=== PATIENT | male | born 1945 | race Caucasian/White ===

== ENCOUNTER 2018-01-30 07:29 | Day surgery (SDC) | payer MEDICARE ==
[2018-01-28 13:48] VITALS: BMI 25.1
[~2018-01-30 07:29] MED LIST: LACTATED RINGERS 1,000 ML IV SCH; LIDOCAINE 1% 20 ML VIAL (10MG/ML) FOR IV START INTRADERMA PRN
[2018-01-30 07:54] VITALS: RESP 18; TEMP 98.6
[2018-01-30 08:13] LABS: Glucose,Whole Blood 187 mg/dL (75-99)
[2018-01-30] MEDS ORDERED: PROPOFOL 10 MG/ML 20 ML VIAL IV ONE (08:14)
--- NOTE | 2018-01-30 08:31 | P.PCN ---
Date of Procedure: 01/30/18 Procedure(s) Performed: BRIEF HISTORY: Patient is a 72-year-old, pleasant, white male, scheduled for an upper endoscopy as a part of evaluation of severe epigastric pain for the last 2 weeks' duration. Pain is mostly in epigastric area, very intense associated with some nausea vomiting. He has long standing history of GERD and has been on Zantac 150 milligrams twice daily. Because of the severe pain he scheduled for an upper endoscopy to evaluate further. He has been taking Mobic on a regular basis for arthritis.. PROCEDURE PERFORMED: Esophagogastroduodenoscopy with biopsy PREOPERATIVE DIAGNOSIS: epigastric pain of 2 weeks duration IV sedation per anesthesia. PROCEDURE: After informed consent was obtained, the patient was brought into the endoscopy unit. IV sedation was administered by Anesthesia under continuous monitoring. Initially the Olympus GIF-140 video endoscope was inserted into the mouth. Esophagus intubated without any difficulty. It was gradually advanced into the stomach and duodenum and carefully examined. In the bulb of the duodenum there was a 2-3 cm deep ulcer along the duodenal sweep with early duodenal stricture. The second part of the duodenum appeared normal. The scope at this time was withdrawn to the stomach, adequately insufflated with air, and upon careful examination, mucosa of the antrum, had mild gastritis and biopsies were done from this area. The body, cardia and the fundus appeared normal. The scope was then withdrawn into the esophagus. Small hiatal hernia noted. The GE junction was located at 36 cm from the incisors. In the distal esophagus revealed linear erosions consistent with LA grade B/C esophagitis. Also there was a 2 cm deep ulceration in the distal esophagus extending to the GE junction was slightly raised irregular margins and this was also biopsied. There was a short segment of Obrien's esophagus identified and biopsies were done from this area also. The rest of the esophagus appeared normal and the patient tolerated the procedure well. IMPRESSION: 1. 2-3 cm deep duodenal bulbar ulcer along the duodenal sweep with early duodenal stricture 2. Moderate size hiatal hernia 3. Distal esophageal ulceration with raised margins, measuring 2 cm in involving the GE junction status post multiple biopsies 4. Small hiatal hernia and short segment Obrien's esophagus. 5. Linear erosions in the distal esophagus consistent with LA grade B/C reflux esophagitis. RECOMMENDATIONS: The findings of this examination were discussed with the patient as well as his family. He was advised to stop Zantac and start Prilosec 20 mg twice daily. He will follow with the biopsy results and he'll be seen in the office in one to 2 weeks.
[2018-01-30 08:53] VITALS: BP 142/88; PULSE 83
== END 2018-01-30 09:39 | disposition home or self-care (01) ==
LOC: ORWHC2ENDO 07:29
PROVIDERS: ATTEND Internal Medicine Gastroenterology
DX: K22.70 Barrett's esophagus without dysplasia (principal); K26.9 Duodenal ulcer, unspecified as acute or chronic, without hemorrhage or perforation; K31.5 Obstruction of duodenum; K21.9 Gastro-esophageal reflux disease without esophagitis; K29.50 Unspecified chronic gastritis without bleeding; K44.9 Diaphragmatic hernia without obstruction or gangrene; I10 Essential (primary) hypertension; E11.9 Type 2 diabetes mellitus without complications; Z79.84 Long term (current) use of oral hypoglycemic drugs; M19.90 Unspecified osteoarthritis, unspecified site; Z79.890 Hormone replacement therapy; Z79.1 Long term (current) use of non-steroidal anti-inflammatories (NSAID); Z79.899 Other long term (current) drug therapy; Z88.0 Allergy status to penicillin
CPT/HCPCS: 88305; 88312; 88313; 43239; J2704

== ENCOUNTER 2022-03-08 06:11 | Day surgery (SDC) | payer MEDICARE ==
[2022-03-07 10:36] VITALS: BMI 25.7
[~2022-03-08 06:11] MED LIST changes: -LACTATED RINGERS 1,000 ML IV SCH; -LIDOCAINE 1% 20 ML VIAL (10MG/ML) FOR IV START INTRADERMA PRN; +MOXIFLOXACIN HCL 0.5% DROPS 3 ML BTL OP PRN; +TETRACAINE 0.5% OPHTH (PF) DROPS 4 ML BTL OP PRN; +TIMOLOL 0.5% OPHTH DROPS 5 ML BTL OP PRN
[2022-03-08] MEDS ORDERED: DEXAMETHASONE SOD PHOSPHATE 4 MG/ML 1 ML VIAL IV ONE (06:28)
[2022-03-08] MEDS ORDERED: LIDOCAINE 1% (10MG/ML) FOR IV START INTRADERMA PRN (06:28)
[2022-03-08] MEDS ORDERED: LACTATED RINGERS 1,000 ML IV SCH (06:28)
[2022-03-08] MEDS ORDERED: ONDANSETRON 4 MG/2 ML VIAL IVP ONE (06:28)
[2022-03-08] MEDS: CYCLOPENTOLATE 1% OPHTH SOLN 2 ML BTL OP PRN ×3 (06:40→06:54)
[2022-03-08] MEDS: PHENYLEPHRINE 2.5% OPHTH DRP 2ML OP PRN ×3 (06:43→06:57)
[2022-03-08 06:47] VITALS: TEMP 97.3
[2022-03-08 07:04] LABS: Glucose,Whole Blood 129 mg/dL (75-99)
[2022-03-08] MEDS ORDERED: fentaNYL (PF) 50 MCG/ML 2 ML AMP ONE (07:26)
[2022-03-08] MEDS ORDERED: MIDAZOLAM 2 MG/2 ML VIAL ONE (07:26)
[2022-03-08] MEDS ORDERED: EPINEPHrine (PF) 0.3 ML in BALANCED SALT IRRIG SOLN COMB2 500 ML IRRIGATION ONE (07:44)
[2022-03-08] MEDS ORDERED: BALANCED SALT IRRIG SOLN COMB2 15 ML IRRIG.SOLN INTRAOCULA ONE (07:45)
[2022-03-08] MEDS ORDERED: DUOVISC KIT (GREEN BOX) INTRAOCULA ONE (07:46)
[2022-03-08] MEDS ORDERED: LIDOCAINE 1% (PF) 10MG/ML VIAL MISCELLANE ONE (07:46)
--- NOTE | 2022-03-08 08:02 | P.OP ---
Date of Procedure: 03/08/22 Preoperative Diagnosis: NS 7 CS & POAG moderate Postoperative Diagnosis: same Procedure(s) Performed: PIOL & goniotomy OD Implants: [id number] Anesthesia: MAC Surgeon: Branden Cordova Pathology: none sent Condition: stable Disposition: same day Indications for Procedure: blurry vision and glaucoma control Operative Findings: no complications
[2022-03-08 08:07] VITALS: RESP 14
[2022-03-08 08:27] VITALS: BP 166/88; PULSE 75
--- NOTE | 2022-03-09 09:05 | OP ---
OPERATIVE REPORT DATE OF SURGERY: 03/08/2022 PROCEDURE: Phacoemulsification of cataract and intraocular lens implant of the right eye with goniotomy of the right eye PREOPERATIVE DIAGNOSES: 1. Nuclear sclerosis. 2. Cortical sclerosis. 3. Primary open-angle glaucoma, moderate stage. SURGEON: Dr. Percy Cordova. ANESTHESIA: Topical. ESTIMATED BLOOD LOSS: Less than 5 mL. SPECIMEN TAKEN: None. NARRATIVE: After obtaining the appropriate consent, the patient was brought to the operating room. There he was placed under cardiac monitoring, prepped and draped in the usual sterile manner. He was approached from his right temporal side, and at the 11 o'clock position an MVR blade was used to create a paracentesis port. Through this opening 1% Xylocaine MPF 50:50 mix of balanced salt solution was injected into the anterior chamber. This was followed by stabilization of the anterior chamber with Viscoat. At the 9 o'clock position, a 2.5 mm keratome was used to create a self-sealing corneal flap incision. The patient was at this point asked to rotate his head approximately 45 degrees to his left and maintain a gaze in that general direction. A gonioprism was placed on the patient's eye and the trabecular meshwork on the nasal side of the patient's eye was identified. Using a Array Stormk dual-blade goniotomy knife, a veda-and- meet method was used to remove approximately 5 clock-hours of trabecular meshwork on the patient's nasal side of his eye. He was then asked to rotate his head back to the normal supine position, and again through the temporal incision a cystotome was introduced to begin a continuous tear capsulorrhexis which was then completed using the Utrata forceps. Hydrodissection and hydrodelineation of the lens was accomplished with balanced salt solution. Phacoemulsification of the lens utilizing phaco chop was accomplished in 27.65 seconds at 17% power. Additional Xylocaine MPF was instilled into the anterior chamber. This was followed by removal of the remaining cortical material under irrigation and aspiration as well as careful polishing of the posterior capsule in capsule vacuum mode. Provisc was then used to stabilize the capsular bag, and a Bausch and Lomb MX 60E 21.0 diopter posterior chamber intraocular lens was inserted into the capsular bag without difficulty. The remaining viscoelastic was then removed under irrigation and aspiration from in and around the intraocular lens as well as the anterior chamber. The eye was then brought to slightly above normal intraocular pressure with balanced salt solution and the eye was then dressed with two drops of 0.5% timolol followed by two drops of 0.5% moxifloxacin. He was then lightly patched and shielded in the usual manner. There were no complications from the procedure. He tolerated the procedure well and was returned to Outpatient Recovery in good condition. MMERIC / CHERIN: [id number] /
== END 2022-03-08 09:09 | disposition home or self-care (01) ==
LOC: OR 06:11
PROVIDERS: ATTEND Ophthalmology
DX: E11.36 Type 2 diabetes mellitus with diabetic cataract (principal); H25.13 Age-related nuclear cataract, bilateral; H40.1132 Primary open-angle glaucoma, bilateral, moderate stage; H35.3131 Nonexudative age-related macular degeneration, bilateral, early dry stage; K21.9 Gastro-esophageal reflux disease without esophagitis; E03.9 Hypothyroidism, unspecified; F17.200 Nicotine dependence, unspecified, uncomplicated; Z79.84 Long term (current) use of oral hypoglycemic drugs; Z79.890 Hormone replacement therapy; Z79.899 Other long term (current) drug therapy; Z88.0 Allergy status to penicillin
CPT/HCPCS: 66984; 65820; C1780; J2250; J0171; J3010; J2001

== ENCOUNTER 2022-05-10 07:21 | Day surgery (SDC) | payer MEDICARE ==
[2022-05-08 09:36] VITALS: BMI 25.1
[~2022-05-10 07:21] MED LIST changes: +LACTATED RINGERS 1,000 ML IV SCH
[2022-05-10 07:50] VITALS: TEMP 97.5
[2022-05-10] MEDS: CYCLOPENTOLATE 1% OPHTH SOLN 2 ML BTL OP PRN ×3 (07:54→08:06)
[2022-05-10] MEDS: PHENYLEPHRINE 2.5% OPHTH DRP 2ML OP PRN ×3 (07:57→08:11)
[2022-05-10 08:08] LABS: Glucose,Whole Blood 132 mg/dL (70-110)
[2022-05-10] MEDS ORDERED: LIDOCAINE 1% (10MG/ML) FOR IV START INTRADERMA ONE (08:13)
[2022-05-10] MEDS ORDERED: BALANCED SALT IRRIG SOLN COMB2 15 ML IRRIG.SOLN INTRAOCULA ONE ×2 (08:26→08:55)
[2022-05-10] MEDS ORDERED: DUOVISC KIT (GREEN BOX) INTRAOCULA ONE ×2 (08:26→08:55)
[2022-05-10] MEDS ORDERED: LIDOCAINE 1% (PF) 10MG/ML VIAL MISCELLANE ONE ×2 (08:27→08:55)
[2022-05-10] MEDS ORDERED: TIMOLOL 0.5% OPHTH SOLN (PF) 0.2 ML DROPERETTE LEFT EYE ONE ×2 (08:27→08:55)
[2022-05-10] MEDS ORDERED: MOXIFLOXACIN HCL 0.5% DROPS 3 ML BTL LEFT EYE ONE ×2 (08:27→08:55)
[2022-05-10] MEDS ORDERED: EPINEPHrine (PF) 0.3 ML in BALANCED SALT IRRIG SOLN COMB2 500 ML IRRIGATION ONE ×2 (08:28→08:47)
[2022-05-10] MEDS ORDERED: MIDAZOLAM 2 MG/2 ML VIAL ONE (08:41)
[2022-05-10] MEDS ORDERED: fentaNYL (PF) 50 MCG/ML 2 ML AMP ONE (08:41)
[2022-05-10] MEDS ORDERED: LACTATED RINGERS 1,000 ML IV ONE (08:45)
--- NOTE | 2022-05-10 09:14 | P.OP ---
Date of Procedure: 05/10/22 Preoperative Diagnosis: NS & CS & POAG moderate Postoperative Diagnosis: same Procedure(s) Performed: PIOL & goniotomy OS Implants: [id number] Anesthesia: MAC Surgeon: Branden Cordova Pathology: none sent Condition: stable Disposition: same day Indications for Procedure: blurry vision and glaucoma control Operative Findings: no complications
[2022-05-10 09:21] VITALS: RESP 18
[2022-05-10 09:47] VITALS: BP 156/95; PULSE 64
--- NOTE | 2022-05-10 23:24 | OP ---
OPERATIVE REPORT PROCEDURE PERFORMED: Phacoemulsification of cataract and intraocular lens implant of the left eye with goniotomy. PREOPERATIVE DIAGNOSES: Nuclear sclerosis, cortical sclerosis, and moderate primary open-angle glaucoma of the left eye. POSTOPERATIVE DIAGNOSES: Nuclear sclerosis, cortical sclerosis, and moderate primary open-angle glaucoma of the left eye. ANESTHESIA: Topical. ESTIMATED BLOOD LOSS: Less than 5 mL. SPECIMEN TAKEN: None. NARRATIVE: After obtaining the appropriate consent, the patient was brought to the operating room, where he was placed under cardiac monitoring, prepped and draped in the usual sterile manner. He was approached from his left temporal side and at the 5 o'clock position, an MVR blade was used to create a paracentesis port. Through this opening, 1% Xylocaine MPF 50:50 mix with balanced salt solution was injected into the anterior chamber. This was followed by stabilization of the anterior chamber with Viscoat. At the 3 o'clock position, a 2.5 mm keratome was used to create a self-sealing corneal flap incision. A small amount of Viscoat was placed on the patient's cornea and the patient was asked to rotate his head approximately 45 degrees to his right. Gonioprism was placed on the patient's eye and the trabecular meshwork was identified. A Cebixk Dual Blade goniotomy knife was passed across the anterior chamber and using an inside- out technique, approximately 5 clock hours of trabecular meshwork were removed with a goniotomy knife. The knife was withdrawn from the anterior chamber, and the patient was brought to the normal supine position. Then, a cystotome was introduced to begin a continuous tear capsulorrhexis, which was then completed using the Utrata forceps. Hydrodissection and hydrodelineation of the lens were accomplished with balanced salt solution. Phacoemulsification of the lens utilizing phacochop was accomplished in 16.4 seconds at 15% power. Additional Xylocaine MPF was instilled into the anterior chamber. This was followed by removal of the remaining cortical material as well as careful polishing of the posterior capsule in the capsule vacuum mode. Provisc was then used to stabilize the capsular bag, and a Bausch and Lomb MX60E 21.5 diopter posterior chamber intraocular lens was then inserted into the capsular bag without difficulty. The remaining viscoelastic was removed from in and around the intraocular lens as well as the anterior chamber. Small amount of blood was identified near the nasal side of the patient's eye. Therefore, hydration of the temporal as well as paracentesis was performed, and the eye was brought slightly above normal intra-ocular pressure of about 30 mmHg. He then received 2 drops of 0.5% timolol followed by 2 drops of moxifloxacin was then lightly patched and shielded in the usual manner. There were no complications from the procedure. He tolerated the procedure well and was returned to outpatient recovery in good condition. MMERIC / CHERIN: [id number] / MTDD
== END 2022-05-10 10:08 | disposition home or self-care (01) ==
LOC: OR 07:21
PROVIDERS: ATTEND Ophthalmology
DX: E11.36 Type 2 diabetes mellitus with diabetic cataract (principal); H25.12 Age-related nuclear cataract, left eye; H25.012 Cortical age-related cataract, left eye; E11.39 Type 2 diabetes mellitus with other diabetic ophthalmic complication; H40.1122 Primary open-angle glaucoma, left eye, moderate stage; H35.3131 Nonexudative age-related macular degeneration, bilateral, early dry stage; I12.9 Hypertensive chronic kidney disease with stage 1 through stage 4 chronic kidney disease, or unspecified chronic kidney disease; E11.22 Type 2 diabetes mellitus with diabetic chronic kidney disease; N18.9 Chronic kidney disease, unspecified; E03.9 Hypothyroidism, unspecified; K21.9 Gastro-esophageal reflux disease without esophagitis; Z98.41 Cataract extraction status, right eye; Z96.1 Presence of intraocular lens; Z79.890 Hormone replacement therapy; Z79.899 Other long term (current) drug therapy; Z79.84 Long term (current) use of oral hypoglycemic drugs; Z88.0 Allergy status to penicillin; Z87.891 Personal history of nicotine dependence; Z80.9 Family history of malignant neoplasm, unspecified
CPT/HCPCS: 65820; 66984; C1780; J2250; J0171; J3010; J2001

== ENCOUNTER 2022-11-29 06:11 | Inpatient (IN) | payer MEDICARE ==
[2022-11-22 10:28] LABS: Partial Thromboplastin Time 22.7 sec (22.0-30.0); Prothrombin Time 10.6 sec (9.0-12.0)
[2022-11-22 10:31] LABS: ALT 36 U/L (4-49); AST 28 U/L (17-59); African American GFR (CKD) 34 (>60 ml/min/1.73 sqM); Albumin 4.3 g/dL (3.5-5.0); Albumin/Globulin Ratio 1.5; Alkaline Phosphatase 105 U/L (38-126); Anion Gap 9 mmol/L; Blood Urea Nitrogen 35 mg/dL (9-20); Calcium 8.6 mg/dL (8.4-10.2); Carbon Dioxide 24 mmol/L (22-30); Chloride 108 mmol/L (98-107); Globulin 2.8 g/dL; Glucose 221 mg/dL (74-99); Non-African American GFR(CKD) 30 (>60 ml/min/1.73 sqM); Potassium 4.8 mmol/L (3.5-5.1); Sodium 141 mmol/L (137-145); Total Bilirubin 0.6 mg/dL (0.2-1.3); Total Protein 7.1 g/dL (6.3-8.2)
[2022-11-22 10:36] LABS: HCT 36.4 % (39.0-53.0); HGB 11.9 gm/dL (13.0-17.5); MCHC 32.8 g/dL (31.0-37.0); MCV 94.7 fL (80.0-100.0); Mean Platelet Volume 8.3; Platelet Count 292 k/uL (150-450); RBC 3.84 m/uL (4.30-5.90); RDW 14.3 % (11.5-15.5); WBC 6.6 k/uL (3.8-10.6)
[~2022-11-29 06:11] MED LIST changes: +ALBUMIN HUMAN 25% 50 ML IV ONE; +ALBUMIN HUMAN 5% 500 ML IVPB ONE; +ASPIRIN 325 MG TAB PO ONE; +ATORVASTATIN 10 MG TAB PO ONE; +CALCIUM CHLORIDE 100 MG/ML 10 ML SYRINGE IV ONE; +CARDIOPLEGIC SOLN (K+ 16 MEQ/L 1,000 ML with SODIUM BICARB (1 MEQ/ML) 20 ML, LIDOCAINE ... PERFUSION ONE; +CHLORHEXIDINE GLUCONATE 15 ML CUP MUCOUS MEM ONE; +CLEVIDIPINE BUTYRATE 25 MG in EMPTY BAG 1 BAG IV ONE; +DILTIAZEM 125 MG in SODIUM CHLORIDE 0.9% 100 ML IV ONE; +HEPARIN SODIUM 1,000 UN/ML (10ML VL) IV ONE; +HEPARIN SODIUM,PORCINE 5,000 UNIT in SODIUM CHLORIDE 0.9% 500 ML 500 ML IV ONE; +INSULIN REGULAR 100 UNIT in SODIUM CHLORIDE 0.9% 100 ML IV ONE; +LACTATED RINGERS 1,000 ML IV ONE; -LACTATED RINGERS 1,000 ML IV SCH; +MAGNESIUM SULFATE 16.24 MEQ in EMPTY SYRINGE 1 SYR IV ONE; +MANNITOL 25% 12.5 GM/50 ML VIAL IV ONE; +METOPROLOL TARTRATE 12.5 MG TAB PO ONE; -MOXIFLOXACIN HCL 0.5% DROPS 3 ML BTL OP PRN; +NITROGLYCERIN SL TABS 0.4 MG TAB SUBLINGUAL ONE; +NITROGLYCERIN-D5W PMX 25 MG/250 ML BTL IV ONE; +NITROGLYCERIN-D5W PMX 50 MG in DEXTROSE/WATER 1 250ML.BAG IV ONE; +NOREPINEPHRINE 4 MG in SODIUM CHLORIDE 0.9% 250 ML IV ONE; +PAPAVERINE 360 MG in SODIUM CHLORIDE 0.9% 90 ML IV ONE; +PHENYLEPHRINE 10 MG/ML VIAL IV ONE; +PHENYLEPHRINE 40 MG in SODIUM CHLORIDE 0.9% 250 ML IV ONE; +PROTAMINE SULFATE 10 MG/ML 25 ML VIAL IV ONE; +PROTAMINE SULFATE 250 MG in EMPTY BAG 1 BAG IV ONE; +SODIUM BICARB 8.4% 50 ML SYR (1 MEQ/ML) IV ONE; +SODIUM CHLORIDE 0.9% 1,000 ML IV ONE; -TETRACAINE 0.5% OPHTH (PF) DROPS 4 ML BTL OP PRN; -TIMOLOL 0.5% OPHTH DROPS 5 ML BTL OP PRN; +TRANEXAMIC ACID 2,000 MG in SODIUM CHLORIDE 0.9% 80 ML IV ONE; +ceFAZolin 1,000 MG in SODIUM CHLORIDE 0.9% IRRIGATIO 1,000 ML IRRIGATION ONE; +propofoL 1,000 MG/100 ML VIAL IV ONE
[2022-11-29] MEDS ORDERED: LACTATED RINGERS 1,000 ML IV ONE (06:45)
[2022-11-29 06:51] LABS: Glucose,Whole Blood 126 mg/dL (70-110)
[2022-11-29] MEDS ORDERED: NITROGLYCERIN-D5W PMX 50 MG/250 ML BOTTLE IV ONE (07:45)
[2022-11-29] MEDS ORDERED: SODIUM CHLORIDE 0.9% 100 ML BAG ONE (07:45)
[2022-11-29] MEDS ORDERED: ceFAZolin 1,000 MG VIAL ONE (07:45)
[2022-11-29] MEDS ORDERED: fentaNYL (PF) 50 MCG/ML 50 ML VIAL ONE (07:45)
[2022-11-29] MEDS ORDERED: SODIUM BICARB 8.4% 50 ML SYR (1 MEQ/ML) ONE (07:45)
[2022-11-29] MEDS ORDERED: INSULIN REGULAR 100 UNIT/ML VIAL (IV) ONE (07:45)
[2022-11-29] MEDS ORDERED: ALBUMIN HUMAN 5% (25gm) 500 ML VIAL IVPB ONE (07:45)
[2022-11-29] MEDS ORDERED: LIDOCAINE 2% SYG (PF) 100 MG/5 ML ONE (07:45)
[2022-11-29] MEDS ORDERED: MAGNESIUM SULFATE 4 MEQ/ML 10ML VIAL ONE (07:45)
[2022-11-29] MEDS ORDERED: MIDAZOLAM HCL 10 MG/10 ML VIAL ONE (07:45)
[2022-11-29] MEDS ORDERED: ePHEDrine 50 MG/ML 1 ML VIAL ONE (07:45)
[2022-11-29] MEDS ORDERED: PROPOFOL 10 MG/ML 20 ML VIAL IV ONE (07:45)
[2022-11-29] MEDS ORDERED: VECURONIUM 10 MG VIAL IV ONE (07:45)
[2022-11-29] MEDS ORDERED: PHENYLEPHRINE-0.9% NACL SYG 1,000 MCG/10 ML SYRINGE ONE (07:45)
[2022-11-29] MEDS ORDERED: PROTAMINE SULFATE 10 MG/ML 5 ML VIAL IV ONE (07:45)
[2022-11-29] MEDS ORDERED: SODIUM CHLORIDE 0.9% IRRIG 1,000 ML BTL IRRIGATION ONE (07:45)
[2022-11-29 09:41] LABS: ABG Glucose Whole Blood 167 mg/dL (75-99); ABG Ionized Calcium 4.6 mg/dL (4.5-5.3); ABG Lactic Acid Whole Blood 0.9 mmol/L (0.5-1.6); ABG Oxygen Saturation 99.5 % (94-97); ABG PCO2 47 mmHg (35-45); ABG PO2 219 mmHg (83-108); ABG Potassium Whole Blood 5.1 mmol/L (3.4-4.5); ABG Sodium Whole Blood 141 mmol/L (135-146); Allen Test Performed? Yes
[2022-11-29 10:39] LABS: ABG Base Excess -1.6 mmol/L; ABG Glucose Whole Blood 135 mg/dL (75-99); ABG HCO3 24 mmol/L (21-25); ABG Hematocrit 29 % (34.0-46.0); ABG Ionized Calcium 4.3 mg/dL (4.5-5.3); ABG Lactic Acid Whole Blood 1.1 mmol/L (0.5-1.6); ABG Oxygen Saturation 99.6 % (94-97); ABG PCO2 40 mmHg (35-45); ABG PH 7.37 (7.35-7.45); ABG PO2 234 mmHg (83-108); ABG Potassium Whole Blood 4.4 mmol/L (3.4-4.5); ABG Sodium Whole Blood 143 mmol/L (135-146); ABG TCO2 25 mmol/L (19-24)
--- NOTE | 2022-11-29 11:11 | P.ANPRN ---
Procedure Note - Anesthesia - Invasive Line Right Central Line Time Out Performed: Yes ([id number]) Date of Procedure: 11/29/22 Time of Procedure: 07:37 Location of Patient: Phase I Preparation: Sterile Prep, Sterile Dressing Central Line Location: Internal Jugular (8.5F cordis) Ultrasound Used: Yes Purpose - Visualization and Identification of Vasculature: Yes Needle Guage: 18g angio Image Stored and Saved: Yes Narrative: Central line placement per sterile protocol utilized. +Angio +Cvp +jwire +uneventful dilation and introduction right IJ Cordis nonpulsitile. Lumen bled and flushed
--- NOTE | 2022-11-29 11:13 | P.ANPRN ---
Procedure Note - Anesthesia - Invasive Line Right [place] Time Out Performed: Yes ([id number]) Date of Procedure: 11/29/22 Time of Procedure: 07:52 Location of Patient: Phase I Preparation: Sterile Prep [place] Line Location: Internal Jugular Ultrasound Used: No Purpose - Visualization and Identification of Vasculature: No Narrative: Central line placement per sterile protocol utilized. swan floated under sterile protocol in sheath to wedge at 54cm. w/d to 49 cm. b/d. secured and dressed.
[2022-11-29 11:14] LABS: ABG Glucose Whole Blood 132 mg/dL (75-99); ABG HCO3 23 mmol/L (21-25); ABG Hematocrit 26 % (34.0-46.0); ABG Ionized Calcium 4.2 mg/dL (4.5-5.3); ABG Lactic Acid Whole Blood 1.1 mmol/L (0.5-1.6); ABG PCO2 36 mmHg (35-45); ABG PO2 237 mmHg (83-108); ABG Potassium Whole Blood 4.2 mmol/L (3.4-4.5); ABG Sodium Whole Blood 143 mmol/L (135-146); ABG TCO2 24 mmol/L (19-24)
[2022-11-29] MEDS ORDERED: DILTIAZEM 125 MG in SODIUM CHLORIDE 0.9% 100 ML IV SCH (11:15)
[2022-11-29 11:51] LABS: ABG Base Excess -2.5 mmol/L; ABG Glucose Whole Blood 165 mg/dL (75-99); ABG HCO3 22 mmol/L (21-25); ABG Hematocrit 25 % (34.0-46.0); ABG Ionized Calcium 4.3 mg/dL (4.5-5.3); ABG Lactic Acid Whole Blood 1.2 mmol/L (0.5-1.6); ABG Oxygen Saturation 99.9 % (94-97); ABG PCO2 37 mmHg (35-45); ABG PH 7.39 (7.35-7.45); ABG PO2 224 mmHg (83-108); ABG Potassium Whole Blood 4.1 mmol/L (3.4-4.5); ABG Sodium Whole Blood 143 mmol/L (135-146); ABG TCO2 23 mmol/L (19-24)
[2022-11-29 12:23] LABS: ABG Base Excess -3.5 mmol/L; ABG Glucose Whole Blood 150 mg/dL (75-99); ABG HCO3 21 mmol/L (21-25); ABG Ionized Calcium 4.2 mg/dL (4.5-5.3); ABG Lactic Acid Whole Blood 1.3 mmol/L (0.5-1.6); ABG Oxygen Saturation 99.9 % (94-97); ABG PCO2 36 mmHg (35-45); ABG PH 7.38 (7.35-7.45); ABG PO2 253 mmHg (83-108); ABG Potassium Whole Blood 3.7 mmol/L (3.4-4.5); ABG Sodium Whole Blood 143 mmol/L (135-146); ABG TCO2 22 mmol/L (19-24)
--- NOTE | 2022-11-29 12:45 | P.OP ---
Date of Procedure: 11/29/22 Preoperative Diagnosis: Coronary artery disease Postoperative Diagnosis: Same Procedure(s) Performed: Off pump CABG 3 with ALMEIDA to LAD, left radial artery graft to obtuse marginal, saphenous vein graft to PDA, endovascular vein harvest, endovascular radial harvest, ligation of left atrial appendage with 35 mm AtriCure clip. Implants: 35 mm AtriCure clip Anesthesia: GETA Surgeon: Frantz Gomez Machine Tack Puller #1: Tod Escamilla Machine Tack Puller #2: Gary Cisneros (Asst #3: Ad Inman) Estimated Blood Loss (ml): 400 IV fluids (ml): 2,000 Urine output (ml): 500 Pathology: none sent Condition: stable Disposition: ICU Indications for Procedure: 77-year-old male with intermittent chest discomfort underwent elective catheterization found to have three-vessel coronary artery disease. Elective CABG was scheduled. Operative Findings: Conduits were excellent. Targets were good. LV was good. There was minimal disease in the ascending aorta. Graft flows were excellent on completion Description of Procedure: Patient was brought to the operating room and placed supine on the operating table. General anesthesia was induced. Monitoring lines been placed in the preop holding area. Anterior torso, left upper extremity and bilateral lower extremities were sterilely prepped and draped. Left radial artery was harvested with endovascular harvest technique by Mr. Liu. Greater saphenous vein was harvested from the left thigh using endovascular vein harvest technique by Mr. Cisneros. Simultaneous sternotomy was performed a left hemisternum was retracted upwards and left internal mammary artery harvested on a vascularized pedicle, left intact and surgeon from subclavian and divided distally. All 3 were excellent conduits. The radial artery and saphenous vein were prepared on the back table. Left pleural space was drained with 32-[place] chest tube in standard sternal retractor was placed. The heart was exposed pericardial sutures after pericardiotomy. Patient was systemically heparinized and ACTs maintained greater than 250 during grafting. 35mm AtriCure clip was applied to the face of left atrial appendage. The ALMEIDA was tunneled into the pericardial space. Midportion of the LAD was stabilized and the vessel dissected out. It was opened and blood flow control with a 1.5 mm flow through. It vessel had a 1.5-1.75 mm lumen. End-to-side anastomosis between ALMEIDA and LAD was constructed with running 8-0 Prolene suture. On completion anastomosis flow through was removed effectively probing the proximal distal portion anastomosis. Suture was tied and good result and stasis. Inflow was open and the ANTONIO pedicle tacked surrounding epicardium with 6-0 silk suture suture. Next the inferior wall of the heart was exposed. The PDA was dissected out proximally. It was a 2 mm vessel good quality. It was opened and blood flow control with a 1.5 mm flow through. Saphenous vein was anastomosed in end-to-side fashion with running 7-0 Prolene suture. On completion anastomosis the flow through was removed effectively probing the proximal distal portion of the anastomosis. Suture was tied with good result and hemostasis and good backbleeding noted into the vein. Vein was cut to appropriate length to reach the ascending aorta. Heart was lowered into anatomic position and a heartstring device was deployed in the proximal ascending aorta in the midline. Proximal anastomosis was constructed with running 5-0 Prolene suture. On completion anastomosis the heartstring de vice was removed. The vein was de-aired with needle holes and bulldog clamps removed. Graft was noted to lay well with good length and good hemostasis. Lateral wall of the heart was exposed. The major marginal branch was identified and stabilized. Proximal lesion in the obtuse marginal was identified and vessel was grafted beyond this. There was a 1.75 mm vessel. It was opened and blood flow control with a 1.5 mm flow through. Radial artery was anastomosed in end-to-side fashion with running 7-0 Prolene suture. Completion anastomosis flow through was removed 50 probe the proximal distal portion anastomosis. Suture was tied with good result and hemostasis and good backbleeding was noted and the radial artery. Was brought underneath the ALMEIDA to the ascending aorta and was of more than adequate length. It was cut to appropriate length. A heartstring device was deployed in the mid ascending aorta to the left of midline and the proximal anastomosis of the radial artery off the aorta was performed with running 6-0 Prolene suture. On completion anastomosis heartstring device was removed. Suture was tied with good result and hemostasis. The radial artery was de-aired with needle holes and the inflow open. Good hemostasis was now noted at all anastomosis. Heparin was reversed with protamine. Graft flows were measured with metastatic device and good flows were noted throughout. Heparin was reversed with protamine and good hemostasis obtained throughout. Mediastinum was drained with a 36-[place] chest tube. The right pleural space was drained with a 19-gauge Cisneros drain. Chest was irrigated with antibiotic solution. After assuring good hemostasis the pericardium was tacked loosely closed and the sternum closed with 8 sternal wires. Fascia was closed with 0 Ethibond. Subcutaneous and subcuticular layers in the leg arm and chest were closed with layers of Vicryl suture. Dry sterile dressings were applied the patient was transferred to the ICU in stable condition.
[2022-11-29 12:54] LABS: ABG Hematocrit 24 % (34.0-46.0)
[2022-11-29] MEDS ORDERED: NITROGLYCERIN-D5W PMX 50 MG in DEXTROSE/WATER 1 250ML.BAG IV SCH (13:16)
[2022-11-29] MEDS ORDERED: IPRATROPIUM-ALBUTEROL 3 ML NEB INHALATION PRN (13:16)
[2022-11-29] MEDS ORDERED: DEXMEDETOMIDINE/0.9% NACL(PMX) 400 MCG in EMPTY BAG 1 BAG IV SCH (13:16)
[2022-11-29] MEDS ORDERED: Potassium Replacement Protocol 1 EACH MISC MISCELLANE PRN (13:16)
[2022-11-29] MEDS ORDERED: METOCLOPRAMIDE 5 MG/ML 2 ML VIAL IVP PRN (13:16)
[2022-11-29] MEDS ORDERED: hydrALAZINE HCL 20 MG/ML 1 ML VIAL IVP PRN (13:16)
[2022-11-29] MEDS ORDERED: CLEVIDIPINE BUTYRATE 25 MG in EMPTY BAG 1 BAG IV SCH (13:16)
[2022-11-29] MEDS ORDERED: BENZOCAINE/MENTHOL LOZENG 1 EACH LOZENGE MUCOUS MEM PRN (13:16)
[2022-11-29] MEDS ORDERED: DEXTROSE 5% IN WATER 100 ML with AMIODARONE 150 MG IV PRN (13:16)
[2022-11-29] MEDS ORDERED: DEXTROSE 50% SYRINGE 50 ML IVP PRN ×2 (13:16)
[2022-11-29] MEDS ORDERED: AMIODARONE 360 MG in DEXTROSE 5% IN WATER 200 ML IV ONE ×2 (13:16)
[2022-11-29] MEDS ORDERED: ONDANSETRON 4 MG/2 ML VIAL IVP PRN (13:16)
[2022-11-29] MEDS ORDERED: Magnesium Replacement Protocol 1 EACH MISC MISCELLANE PRN (13:16)
[2022-11-29 13:31] LABS: Glucose,Whole Blood 150 mg/dL (70-110)
[2022-11-29 13:48] LABS: Basophils % (A) 0 %; Eosinophils % (A) 1 %; Lymphocytes # (A) 1.1 k/uL (1.0-4.8); Lymphocytes % (A) 14 %; MCH 30.9 pg (25.0-35.0); MCHC 33.4 g/dL (31.0-37.0); MCV 92.7 fL (80.0-100.0); Mean Platelet Volume 9.5; Monocytes # (A) 0.5 k/uL (0-1.0); Monocytes % (A) 5 %; Neutrophils # (A) 6.5 k/uL (1.3-7.7); Neutrophils % (A) 79 %; Platelet Count 164 k/uL (150-450); RBC 2.48 m/uL (4.30-5.90); RDW 14.4 % (11.5-15.5); WBC 8.2 k/uL (3.8-10.6)
--- NOTE | 2022-11-29 13:53 | XR ---
EXAMINATION TYPE: XR chest 1V portable DATE OF EXAM: 11/29/2022 COMPARISON: 11/09/2022 HISTORY: Preop TECHNIQUE: Single frontal view of the chest is obtained. FINDINGS: ET tube is approximately 4.9 cm above kiet. NG tube appears in good position. [place]-Joe catheter and the tip overlying the proximal pulmonary outflow tract. There is a left-sided chest tube and mediastinal drain. No sizable pneumothorax. There is left lower lobe consolidation and tiny pleu ral effusion. No overt failure. Heart size normal. Postsurgical changes are seen. IMPRESSION: 1. Postoperative changes with left lower lobe consolidation. Favor postoperative atelectasis with tin y pleural effusion over infiltrate correlate clinically.
[2022-11-29] MEDS ORDERED: ALBUTEROL NEBULIZED 2.5 MG/3 ML INHALATION PRN (14:00)
[2022-11-29] MEDS ORDERED: IPRATROPIUM 0.5 MG/2.5 ML NEBU INHALATION PRN (14:00)
[2022-11-29 14:04] LABS: Glucose,Whole Blood 152 mg/dL (70-110)
[2022-11-29 14:04] LABS: HGB 7.7 gm/dL (13.0-17.5); INR 1.2 (<1.2); Partial Thromboplastin Time 25.8 sec (22.0-30.0); Prothrombin Time 12.6 sec (9.0-12.0)
[2022-11-29 14:05] LABS: ABG Base Excess -2.4 mmol/L; ABG HCO3 23 mmol/L (21-25); ABG Oxygen Saturation 99.8 % (94-97); ABG PCO2 38 mmHg (35-45); ABG PH 7.38 (7.35-7.45); ABG PO2 192 mmHg (83-108); ABG TCO2 24 mmol/L (19-24)
[2022-11-29 14:07] LABS: Ionized Calcium 4.5 mg/dL (4.5-5.3)
[2022-11-29] MEDS: INSULIN REGULAR 100 UNIT in SODIUM CHLORIDE 0.9% 100 ML IV SCH (14:10)
[2022-11-29] MEDS: DILTIAZEM 125 MG in SODIUM CHLORIDE 0.9% 100 ML IV SCH (14:30)
[2022-11-29] MEDS: LACTATED RINGERS 1,000 ML IV SCH (14:36)
[2022-11-29 14:41] LABS: Albumin 3.4 g/dL (3.5-5.0); Calcium 7.3 mg/dL (8.4-10.2); Magnesium 1.4 mg/dL (1.6-2.3); Potassium 3.7 mmol/L (3.5-5.1); Total Bilirubin 0.3 mg/dL (0.2-1.3); Total Protein 5.1 g/dL (6.3-8.2)
[2022-11-29 15:00] LABS: Glucose,Whole Blood 181 mg/dL (70-110)
--- NOTE | 2022-11-29 15:02 | P.ANPRN ---
Procedure Note - Anesthesia - DENNIS Intraop Pre Bypass DENNIS Intraop - Anesthesia Indication: Coronary artery bypass graft off-pump Date of Procedure: 11/29/22 Pre-operative Diagnosis: Severe triple vessel coronary artery disease Post-operative Diagnosis: Coronary artery disease status post CABG Surgeon: Frantz Gomez Left Ventricle: Ejection fraction 50%. No obvious regional wall motion abnormalities seen except basal hypokinesia in inferior and inferolateral segments. Ejection Fraction: Normal Left Ventricle Hypertrophy: No R. Ventricle Function: Normal Aortic Valve: mean gradient of 3 mmHg max. gradient 5 mmHg. Anatomy: Trileaflet Aortic Stenosis: None Mitral Stenosis: None Mitral Regurgitation: Trace Tricuspid Stenosis: None Tricuspid Regurgitation: Trace Pulmonic Stenosis: None Pulmonic Regurgitation: None R. Atrial Dilation: No R. Atrial PFO: No L. Atrial Dilation: No Aortic Dissection: No Aortic Calcification: None Plural Effusion: None - DENNIS Intraop Post Bypass DENNIS Intraop Post Bypass Procedure Performed: Coronary artery bypass graft Left Ventricle: Ejection fraction 50% and no regional wall motion abnormalities noted. Regional Wall Motion Abnormalities: None R. Ventricle Function: Normal Aortic Valve: Unchanged Mitral Valve: Unchanged Tricuspid: Unchanged Pulmonic: Unchanged Aortic Dissection: No
--- NOTE | 2022-11-29 15:13 | P.CNPUL ---
History of Present Illness Consult date: 11/29/22 Requesting physician: Frantz Gomez Reason for consult: other (Critical care/ventilator management) Chief complaint: Coronary artery disease History of present illness: This is a 77-year-old male patient with history hypertension, chronic kidney disease, diabetes mellitus, hypothyroidism, CoVID infection 3 and previous chronic tobacco dependence. He also has cardiomyopathy with ejection fraction 40-45%. Recent cardiac catheterization revealed significant coronary artery disease including 90% LAD, 99% circumflex, 99% mid RCA. He was recommended coronary artery bypass grafting. He is brought in today electively with Dr. Gomez and had undergone a off-pump coronary revascularization 3 utilizing a ALMEIDA to the LAD, saphenous vein graft to the PDA, left radial artery to the OM. He is seen in the intensive care unit. Currently sedated on mechanical ventilator and assist control mode with for a rate of 14, tidal I'm 600, FiO2 80% and a PEEP of 5. Blood gases revealed a pO2 of 253, pCO2 36, pH 7.38 that was on 100% FiO2. He is receiving lactated Ringer's at 50 MLS per hour. I nsulin drip at 1.5 units per hour. Amiodarone drip at 1 mg/m. Nitroglycerin drip at 5 mcg/m. Cardizem drip at 5 mg per hour. Propofol at 45 mcg/kg/m. Cardiac output 5.9. Cardiac index 2.8. PA pressures 13/16. CVP 10. Chest x- ray reveals postoperative changes with a left lower lobe consolidation. Favoring postoperative atelectasis with a tiny pleural effusion versus infiltrate. Mediastinal, right/left pleural chest tubes in place. White count 8.2. Hemoglobin 7.7. Platelets 164. INR 1.2. Sodium 141. Potassium 3.7. Bicarb 22. BUN 26. Creatinine 1.62. Glucose 135. AST 20. ALT 20. Total protein 5.1. Albumin 3.4. He's been initiated on bronchodilators. Heparin for DVT prophylaxis. Review of Systems ROS unobtainable: due to endotracheal tube Past Medical History Past Medical History: Coronary Artery Disease (CAD), Chest Pain / Angina, Diabetes Mellitus, GERD/Reflux, Hypertension, Osteoarthritis (OA), Renal Disease, Seizure Disorder, Thyroid Disorder Additional Past Medical History / Comment(s): migraines, last seizure in 20's, had Covid x 3 in the past but not recent, chronic kidney disease, finishing A/B for UTI History of Any Multi-Drug Resistant Organisms: None Reported Past Surgical History: Heart Catheterization Additional Past Surgical History / Comment(s): oral surgery, cataracts removed, EGD Past Anesthesia/Blood Transfusion Reactions: No Reported Reaction Smoking Status: Former smoker - Past Family History Father Family Medical History: Cancer Mother Additional Family Medical History / Comment(s): of old age at 99 years old, had angina in her 50s but did nothing about it Medications and Allergies Home Medications Medication Instructions Recorded Confirmed Type Aspirin/Acetaminophen/Caffeine 1 each PO DIRECTED PRN 01/28/18 11/29/22 History [Excedrin Migraine Caplet] Losartan Potassium [Cozaar] 100 mg PO QAM 01/28/18 11/29/22 History metFORMIN HCL [Glucophage] 1,000 mg PO BID 01/28/18 11/29/22 History Levothyroxine Sodium 50 mcg PO QAM 03/07/22 11/29/22 History Omeprazole 20 mg PO BID 03/07/22 11/29/22 History Aspirin 81 mg PO DAILY 11/07/22 11/29/22 History Metoprolol Tartrate [Lopressor] 25 mg PO BID 11/07/22 11/29/22 History Atorvastatin [Lipitor] 40 mg PO DAILY #90 tab 11/10/22 11/29/22 Rx Isosorbide Mononitrate ER [Imdur] 30 mg PO DAILY #30 tab 11/10/22 11/29/22 Rx Nitroglycerin Sl Tabs [Nitrostat] 0.4 mg SUBLINGUAL Q5M PRN #25 tab 11/10/22 11/29/22 Rx Ascorbic Acid [Vitamin C] 500 mg PO DAILY 11/28/22 11/29/22 History Cholecalciferol [Vitamin D3 (25 25 mcg PO DAILY 11/28/22 11/29/22 History Mcg = 1000 Iu)] Vitamin B Complex 1 each PO DAILY 11/28/22 11/29/22 History Zinc Gluconate [Zinc] 50 mg PO DAILY 11/28/22 11/29/22 History Allergies Allergy/AdvReac Type Severity Reaction Status Date / Time Penicillins Allergy Rash/Hives Verified 11/29/22 06:22 Physical Exam Vitals: Vital Signs Temp Pulse Pulse Resp BP BP Pulse Ox 11/29/22 14:20 66 14 99 11/29/22 14:06 11/29/22 14:00 63 14 99 11/29/22 13:40 64 14 99 11/29/22 13:30 11/29/22 06:20 97.8 F 69 16 204/91 188/83 94 L FiO2 11/29/22 14:20 11/29/22 14:06 80 11/29/22 14:00 100 11/29/22 13:40 11/29/22 13:30 100 11/29/22 06:20 Intake and Output 11/28/22 11/29/22 11/29/22 22:59 06:59 14:59 Intake Total 100 171.8 Output Total 1013 Balance 100 -841.2 Intake: IV 100 171.8 Amiodarone 360 mg In 33.3 Dextrose 5% in Water 200 ml @ 1 MG/MIN 33.333 mls/ hr IV .Q6H [facility] Rx#: [id number] CO/CI 20 Diltiazem 125 mg In 5 Sodium Chloride 0.9% 100 ml @ 5 MG/HR 5 mls/hr IV .Q24H [facility] Rx#:[id number] Lactated Ringers 1,000 ml 50 @ 50 mls/hr IV .Q20H [facility] Rx#:[id number] Nitroglycerin-D5w Pmx 50 1.5 mg In Dextrose/Water 1 250ml.bag @ 5 MCG/MIN 1.5 mls/hr IV .Q24H [facility] Rx#: [id number] Pressure bags 9 Output: Chest Tube Drainage 123 Chest Tube Bilateral 68 Chest Tube Mediastinal 55 Urine 340 Estimated Blood Loss 550 Other: Weight 82.8 kg ABP, PAP, CO, CI - Last 8 Hours Arterial Blood Pressure 138/60 Arterial Blood Pressure 139/57 Arterial Blood Pressure 104/39 Arterial Blood Pressure 132/53 Pulmonary Artery Pressure 38/15 Pulmonary Artery Pressure 33/17 Pulmonary Artery Pressure 15/2 Cardiac Output 2.9 Cardiac Output 4.9 Cardiac Index 2.8 Cardiac Index 2.4 GENERAL EXAM: Intubated, sedated 77-year-old male patient, comfortable in no apparent distress. HEAD: Normocephalic. EYES: Sluggish reaction of pupils, equal size. NOSE: Clear with pink turbinates. THROAT: Oral endotracheal and gastric tube secured in place. No erythema or exudates. NECK: No masses, no JVD. Right IJ Adams-Joe catheter in place. CHEST: Sternal dressing dry and intact. Mediastinal, right and left pleural chest tubes in place. LUNGS: Equal air entry with crackles in the left base. CVS: S1 and S2 normal with no audible murmur, regular rhythm. ABDOMEN: No hepatosplenomegaly, hypoactive bowel sounds, no guarding or rigidity . SPINE: No scoliosis or deformity SKIN: No rashes CENTRAL NERVOUS SYSTEM: Sedated, tone is normal in all 4 extremities. EXTREMITIES: Rayray wrap to left upper extremity, bilateral lower extremities. Ri ght radial arterial line in place. There is trace peripheral edema. Peripheral pulses are intact. Results - Laboratory Findings CBC and BMP: 11/29/22 13:38 11/29/22 13:38 ABG ABG pH 7.38 (7.35-7.45) 11/29/22 11:53 ABG pH 7.39 (7.35-7.45) 11/29/22 11:53 ABG pCO2 36 mmHg (35-45) 11/29/22 11:53 ABG pCO2 37 mmHg (35-45) 11/29/22 11:53 ABG pO2 224 mmHg (83-108) H 11/29/22 11:53 ABG pO2 253 mmHg (83-108) H 11/29/22 11:53 ABG O2 Saturation 99.9 % (94-97) H 11/29/22 11:53 ABG O2 Saturation 99.9 % (94-97) H 11/29/22 11:53 PT/INR, D-dimer PT 12.6 sec (9.0-12.0) H 11/29/22 13:38 INR 1.2 (<1.2) H 11/29/22 13:38 Abnormal lab findings: Abnormal Labs 11/22/22 11/22/22 11/22/22 10:00 10:00 10:00 RBC 3.84 L Hgb 11.9 L Hct 36.4 L PT INR ABG pH ABG pCO2 ABG pO2 ABG Total CO2 ABG O2 Saturation ABG Hematocrit ABG Potassium ABG Ionized Calcium ABG Glucose Hemoglobin Chloride 108 H BUN 35 H Creatinine 2.07 H Glucose 221 H POC Glucose (mg/dL) Calcium Magnesium Total Protein Albumin Arterial Blood Potassium Arterial Blood Glucose Crossmatch See Detail 11/29/22 11/29/22 11/29/22 06:49 09:42 10:40 RBC Hgb Hct PT INR ABG pH 7.30 L ABG pCO2 47 H ABG pO2 219 H 234 H ABG Total CO2 25 H ABG O2 Saturation 99.5 H 99.6 H ABG Hematocrit 29 L ABG Potassium 5.1 H ABG Ionized Calcium 4.3 L ABG Glucose 167 H 135 H Hemoglobin 10.0 L 9.4 L Chloride BUN Creatinine Glucose POC Glucose (mg/dL) 126 H Calcium Magnesium Total Protein Albumin Arterial Blood Potassium 5.1 H Arterial Blood Glucose 167 H 135 H Crossmatch 11/29/22 11/29/22 11/29/22 11:15 11:53 11:53 RBC Hgb Hct PT INR ABG pH ABG pCO2 ABG pO2 237 H 224 H 253 H ABG Total CO2 ABG O2 Saturation 100.0 H 99.9 H 99.9 H ABG Hematocrit 26 L 25 L 24 L ABG Potassium ABG Ionized Calcium 4.2 L 4.3 L 4.2 L ABG Glucose 132 H 165 H 150 H Hemoglobin 8.4 L 8.3 L 7.8 L Chloride BUN Creatinine Glucose POC Glucose (mg/dL) Calcium Magnesium Total Protein Albumin Arterial Blood Potassium Arterial Blood Glucose 132 H 165 H 150 H Crossmatch 11/29/22 11/29/22 11/29/22 13:30 13:38 13:38 RBC 2.48 L Hgb 7.7 L D Hct 23.0 L PT 12.6 H INR 1.2 H ABG pH ABG pCO2 ABG pO2 ABG Total CO2 ABG O2 Saturation ABG Hematocrit ABG Potassium ABG Ionized Calcium ABG Glucose Hemoglobin Chloride BUN Creatinine Glucose POC Glucose (mg/dL) 150 H Calcium Magnesium Total Protein Albumin Arterial Blood Potassium Arterial Blood Glucose Crossmatch 11/29/22 11/29/22 13:38 14:03 RBC Hgb Hct PT INR ABG pH ABG pCO2 ABG pO2 ABG Total CO2 ABG O2 Saturation ABG Hematocrit ABG Potassium ABG Ionized Calcium ABG Glucose Hemoglobin Chloride 109 H BUN 26 H Creatinine 1.62 H Glucose 135 H POC Glucose (mg/dL) 152 H Calcium 7.3 L Magnesium 1.4 L Total Protein 5.1 L Albumin 3.4 L Arterial Blood Potassium Arterial Blood Glucose Crossmatch - Diagnostic Findings Chest x-ray: image reviewed Assessment and Plan Assessment: Significant triple-vessel coronary artery disease. Status post coronary artery bypass grafting utilizing a ALMEIDA to the LAD, saphenous vein graft to the PDA, left radial artery as to the OM and ligation of left atrial appendage without atrial care clinic. This Day #0 Former smoker Diabetes mellitus Hypertension Hypothyroidism History of seizures History of COVID-19 infection 3 Plan: The patient was seen and evaluated Chest x-ray, ABGs, labs and medications reviewed Decrease FiO2 to 60% FiO2 Titrate the FiO2 as tolerated Continue bronchodilators Plan for early extubation protocol as tolerated We will continue to follow and make further recommendations based on his clinical status I have personally seen and examined the patient, performed the documentation and the assessment and plan as written. Number of minutes spent on the visit: 10.
[2022-11-29] MEDS: HEPARIN SODIUM,PORCINE/PF 5,000 UNIT/0.5 ML SYRINGE SQ SCH ×2 (15:16→23:42)
[2022-11-29] MEDS: MAGNESIUM SULFATE-D5W PMX 1 GM in DEXTROSE/WATER 1 100ML.BAG IVPB SCH ×2 (15:16→16:44)
[2022-11-29 15:27] LABS: Basophils % (A) 0 %; Eosinophils % (A) 0 %; HCT 24.3 % (39.0-53.0); HGB 8.2 gm/dL (13.0-17.5); Lymphocytes % (A) 13 %; MCH 31.2 pg (25.0-35.0); MCHC 33.7 g/dL (31.0-37.0); MCV 92.7 fL (80.0-100.0); Mean Platelet Volume 8.8; Monocytes # (A) 0.4 k/uL (0-1.0); Monocytes % (A) 5 %; Neutrophils # (A) 5.9 k/uL (1.3-7.7); Neutrophils % (A) 80 %; Platelet Count 168 k/uL (150-450); RBC 2.62 m/uL (4.30-5.90); RDW 14.3 % (11.5-15.5); WBC 7.3 k/uL (3.8-10.6)
[2022-11-29] MEDS ORDERED: MUPIROCIN 2% OINT 22 GM TUBE NASAL ONE (15:45)
[2022-11-29] MEDS ORDERED: POTASSIUM BICARBONATE/CIT AC 20 MEQ TABLET.EFF NG-TUBE SCH (16:00)
[2022-11-29] MEDS ORDERED: ALBUTEROL NEBULIZED 2.5 MG/3 ML INHALATION SCH (16:00)
[2022-11-29] MEDS ORDERED: IPRATROPIUM-ALBUTEROL 3 ML NEB INHALATION SCH ×2 (16:00→20:00)
[2022-11-29] MEDS ORDERED: IPRATROPIUM 0.5 MG/2.5 ML NEBU INHALATION SCH (16:00)
[2022-11-29 16:08] LABS: Glucose,Whole Blood 189 mg/dL (70-110)
[2022-11-29 17:05] LABS: Glucose,Whole Blood 197 mg/dL (70-110)
[2022-11-29] MEDS: FERROUS SULFATE 325 MG TAB PO SCH (17:23)
[2022-11-29 18:06] LABS: Glucose,Whole Blood 208 mg/dL (70-110)
[2022-11-29 18:17] LABS: Basophils % (A) 0 %; Eosinophils % (A) 0 %; HCT 24.5 % (39.0-53.0); HGB 8.1 gm/dL (13.0-17.5); Lymphocytes # (A) 1.3 k/uL (1.0-4.8); Lymphocytes % (A) 11 %; MCH 30.8 pg (25.0-35.0); MCV 93.3 fL (80.0-100.0); Mean Platelet Volume 9.3; Monocytes # (A) 0.8 k/uL (0-1.0); Monocytes % (A) 7 %; Neutrophils # (A) 9.4 k/uL (1.3-7.7); Neutrophils % (A) 80 %; Platelet Count 202 k/uL (150-450); RBC 2.63 m/uL (4.30-5.90); RDW 14.4 % (11.5-15.5); WBC 11.7 k/uL (3.8-10.6)
--- NOTE | 2022-11-29 18:22 | P.CONS ---
History of Present Illness - Reason for Consult Consult date: 11/29/22 DM 2 Requesting physician: Frantz Gomez - Chief Complaint CAD - History of Present Illness Patient is a 77-year-old male with hypertension, CKD, mvz-eaerwtp-eyklzehnj diabetes, and hypothyroidism admitted for off pump CABG 3 including ligation of the left atrial appendage. Patient seen and examined at bedside. He is awake on the vent and following commands. Information gathered form record review. Vital signs reviewed General: nontoxic, no distress, appears at stated age Derm: warm, dry Eyes: EOMI, no lid lag, anicteric sclerat Cardiovascular: S1S2 reg, no murmur, no edema, capillary refill less than 2 seconds, b/l LE rosetta wraps in place, CT X 2, mediastinal tubes, Cordis Lungs: Course bs bilateral, no rhonchi, no rales, no wheeze, no accessory muscle use Abdominal: soft, nontender to palpation, no guarding, no appreciable organomegaly, normal bowel sounds Ext: no gross muscle atrophy, no contractures Neuro: CN II-XII grossly intact, light touch intact all 4 extremities, Psych: Alert, following commands , appropriate affect Assessment: A 77-year-old male with coronary artery disease status post off-pump triple vessel bypass on 11/29/22. Diabetes mellitus type 2, [id number] Hypertension Hypothyroidism Chronic kidney disease stage III Imaging: Chest A-bry-diideywyjkelx changes in the left lower lobe. Data Review: -White blood cell count 7.3, hemoglobin 8.2, hematocrit 24.3, sodium 141, potassium 3.7, chloride 109, carbon dioxide 22, BUN 26, creatinine 1.62 (baseline 2.07). Magnesium 1.4, albumin 3.4 Ulcers and blood sugars reviewed and are 197, 189, 181, and 152 Plan: - Hold metformin. An insulin drip at 6 units per hour. This will be maintained overnight to help with optimal blood sugar control. We'll continue with every hour Accu-Cheks. -Patiently currently on diltiazem drip at 5 g/h. Also on amiodarone drip. -Aspirin 325 mg daily, Lipitor 40 mg daily, Plavix 75 mg daily -Pulmonary note reviewed: Decrease FiO2 and proceed with early extubation protocol. DVT prophylaxis: Heparin RI Thank you for allowing us to participate in the care of this pleasant patient. Do not hesitate to contact us with questions. Someone can be reached from the [facility] hospitalist group all hours of the day at [phone] or via [employer]. Past Medical History Past Medical History: Coronary Artery Disease (CAD), Chest Pain / Angina, Diabetes Mellitus, GERD/Reflux, Hypertension, Osteoarthritis (OA), Renal Disease, Seizure Disorder, Thyroid Disorder Additional Past Medical History / Comment(s): migraines, last seizure in 20's, had Covid x 3 in the past but not recent, chronic kidney disease, finishing A/B for UTI History of Any Multi-Drug Resistant Organisms: None Reported Past Surgical History: Heart Catheterization Additional Past Surgical History / Comment(s): oral surgery, cataracts removed, EGD Past Anesthesia/Blood Transfusion Reactions: No Reported Reaction Smoking Status: Former smoker - Past Family History Father Family Medical History: Cancer Mother Additional Family Medical History / Comment(s): of old age at 99 years old, had angina in her 50s but did nothing about it Medications and Allergies Home Medications Medication Instructions Recorded Confirmed Type Aspirin/Acetaminophen/Caffeine 1 each PO DIRECTED PRN 01/28/18 11/29/22 History [Excedrin Migraine Caplet] Losartan Potassium [Cozaar] 100 mg PO QAM 01/28/18 11/29/22 History metFORMIN HCL [Glucophage] 1,000 mg PO BID 01/28/18 11/29/22 History Levothyroxine Sodium 50 mcg PO QAM 03/07/22 11/29/22 History Omeprazole 20 mg PO BID 03/07/22 11/29/22 History Aspirin 81 mg PO DAILY 11/07/22 11/29/22 History Metoprolol Tartrate [Lopressor] 25 mg PO BID 11/07/22 11/29/22 History Atorvastatin [Lipitor] 40 mg PO DAILY #90 tab 11/10/22 11/29/22 Rx Isosorbide Mononitrate ER [Imdur] 30 mg PO DAILY #30 tab 11/10/22 11/29/22 Rx Nitroglycerin Sl Tabs [Nitrostat] 0.4 mg SUBLINGUAL Q5M PRN #25 tab 11/10/22 11/29/22 Rx Ascorbic Acid [Vitamin C] 500 mg PO DAILY 11/28/22 11/29/22 History Cholecalciferol [Vitamin D3 (25 25 mcg PO DAILY 11/28/22 11/29/22 History Mcg = 1000 Iu)] Vitamin B Complex 1 each PO DAILY 11/28/22 11/29/22 History Zinc Gluconate [Zinc] 50 mg PO DAILY 11/28/22 11/29/22 History Allergies Allergy/AdvReac Type Severity Reaction Status Date / Time Penicillins Allergy Rash/Hives Verified 11/29/22 06:22 Physical Exam Osteopathic Statement: *. No significant issues noted on an osteopathic structural exam other than those noted in the History and Physical/Consult. Vitals: Vital Signs Temp Pulse Pulse Resp BP BP Pulse Ox 11/29/22 18:00 66 18 97 11/29/22 17:57 11/29/22 17:40 58 L 14 97 11/29/22 17:20 73 16 98 11/29/22 17:00 66 18 98 11/29/22 16:40 60 14 97 11/29/22 16:20 62 14 96 11/29/22 16:00 61 14 96 11/29/22 15:40 63 14 98 11/29/22 15:28 64 15 11/29/22 15:20 68 14 96 11/29/22 15:18 69 15 11/29/22 15:00 67 14 96 11/29/22 14:40 70 14 99 11/29/22 14:20 66 14 99 11/29/22 14:06 11/29/22 14:00 63 14 99 11/29/22 13:40 64 14 99 11/29/22 13:30 11/29/22 06:20 97.8 F 69 16 204/91 188/83 94 L FiO2 11/29/22 18:00 11/29/22 17:57 50 11/29/22 17:40 11/29/22 17:20 11/29/22 17:00 11/29/22 16:40 11/29/22 16:20 11/29/22 16:00 50 11/29/22 15:40 11/29/22 15:28 11/29/22 15:20 11/29/22 15:18 50 11/29/22 15:00 11/29/22 14:40 11/29/22 14:20 11/29/22 14:06 80 11/29/22 14:00 100 11/29/22 13:40 11/29/22 13:30 100 11/29/22 06:20 Intake and Output 11/29/22 11/29/22 11/29/22 06:59 14:59 22:59 Intake Total 100 171.8 666.840 Output Total 1013 374 Balance 100 -841.2 292.840 Intake: IV 100 171.8 650.2 Amiodarone 360 mg In 33.3 133.2 Dextrose 5% in Water 200 ml @ 1 MG/MIN 33.333 mls/ hr IV .Q6H [facility] Rx#: [id number] CO/CI 20 80 Diltiazem 125 mg In 5 15 Sodium Chloride 0.9% 100 ml @ 5 MG/HR 5 mls/hr IV .Q24H [facility] Rx#:[id number] Lactated Ringers 1,000 ml 50 180 @ 50 mls/hr IV .Q20H [facility] Rx#:[id number] Magnesium Sulfate-D5w Pmx 200 1 gm In Dextrose/Water 1 100ml.bag @ 100 mls/hr IVPB Q1H [facility] Rx#: [id number] Nitroglycerin-D5w Pmx 50 1.5 6.0 mg In Dextrose/Water 1 250ml.bag @ 5 MCG/MIN 1.5 mls/hr IV .Q24H [facility] Rx#: [id number] Pressure bags 9 36 Intake, IV Titration 16.640 Amount Insulin Regular 100 unit 16.640 In Sodium Chloride 0.9% 100 ml @ Per Protocol IV .Q0M [facility] Rx#:[id number] Output: Chest Tube Drainage 123 191 Chest Tube Bilateral 68 65 Chest Tube Mediastinal 55 126 Urine 340 183 Estimated Blood Loss 550 Other: Voiding Method Indwelling Catheter Weight 82.8 kg ABP, PAP, CO, CI - Last 8 Hours Arterial Blood Pressure 138/58 Arterial Blood Pressure 121/52 Arterial Blood Pressure 108/51 Arterial Blood Pressure 107/55 Arterial Blood Pressure 117/54 Arterial Blood Pressure 113/52 Arterial Blood Pressure 124/63 Arterial Blood Pressure 128/58 Arterial Blood Pressure 144/63 Arterial Blood Pressure 140/61 Arterial Blood Pressure 154/71 Arterial Blood Pressure 138/60 Arterial Blood Pressure 139/57 Arterial Blood Pressure 104/39 Arterial Blood Pressure 132/53 Pulmonary Artery Pressure 40/16 Pulmonary Artery Pressure 33/15 Pulmonary Artery Pressure 35/13 Pulmonary Artery Pressure 41/22 Pulmonary Artery Pressure 33/18 Pulmonary Artery Pressure 31/17 Pulmonary Artery Pressure 32/17 Pulmonary Artery Pressure 32/16 Pulmonary Artery Pressure 33/18 Pulmonary Artery Pressure 35/16 Pulmonary Artery Pressure 41/15 Pulmonary Artery Pressure 38/15 Pulmonary Artery Pressure 33/17 Pulmonary Artery Pressure 15/2 Cardiac Output 6.6 Cardiac Output 4.4 Cardiac Output 6.4 Cardiac Output 5.9 Cardiac Output 2.9 Cardiac Output 4.9 Cardiac Index 3.2 Cardiac Index 2.1 Cardiac Index 3.1 Cardiac Index 2.8 Cardiac Index 2.8 Cardiac Index 2.4 Results CBC & Chem 7: 11/29/22 18:05 11/29/22 13:38 Labs: Abnormal Lab Results - Last 24 Hours (Table) 11/22/22 11/29/22 11/29/22 Range/Units 10:00 06:49 09:42 WBC (3.8-10.6) k/uL RBC (4.30-5.90) m/uL Hgb (13.0-17.5) gm/dL Hct (39.0-53.0) % Neutrophils # (1.3-7.7) k/uL PT (9.0-12.0) sec INR (<1.2) ABG pH 7.30 L (7.35-7.45) ABG pCO2 47 H (35-45) mmHg ABG pO2 219 H (83-108) mmHg ABG Total CO2 (19-24) mmol/L ABG O2 Saturation 99.5 H (94-97) % ABG Hematocrit (34.0-46.0) % ABG Potassium 5.1 H (3.4-4.5) mmol/L ABG Ionized Calcium (4.5-5.3) mg/dL ABG Glucose 167 H (75-99) mg/dL Hemoglobin 10.0 L (13.0-17.5) gm/dL Chloride (98-107) mmol/L BUN (9-20) mg/dL Creatinine (0.66-1.25) mg/dL Glucose (74-99) mg/dL POC Glucose (mg/dL) 126 H (70-110) mg/dL Calcium (8.4-10.2) mg/dL Magnesium (1.6-2.3) mg/dL Total Protein (6.3-8.2) g/dL Albumin (3.5-5.0) g/dL Arterial Blood Potassium 5.1 H (3.4-4.5) mmol/L Arterial Blood Glucose 167 H (75-99) mg/dL Crossmatch See Detail 11/29/22 11/29/22 11/29/22 Range/Units 10:40 11:15 11:53 WBC (3.8-10.6) k/uL RBC (4.30-5.90) m/uL Hgb (13.0-17.5) gm/dL Hct (39.0-53.0) % Neutrophils # (1.3-7.7) k/uL PT (9.0-12.0) sec INR (<1.2) ABG pH (7.35-7.45) ABG pCO2 (35-45) mmHg ABG pO2 234 H 237 H 224 H (83-108) mmHg ABG Total CO2 25 H (19-24) mmol/L ABG O2 Saturation 99.6 H 100.0 H 99.9 H (94-97) % ABG Hematocrit 29 L 26 L 25 L (34.0-46.0) % ABG Potassium (3.4-4.5) mmol/L ABG Ionized Calcium 4.3 L 4.2 L 4.3 L (4.5-5.3) mg/dL ABG Glucose 135 H 132 H 165 H (75-99) mg/dL Hemoglobin 9.4 L 8.4 L 8.3 L (13.0-17.5) gm/dL Chloride (98-107) mmol/L BUN (9-20) mg/dL Creatinine (0.66-1.25) mg/dL Glucose (74-99) mg/dL POC Glucose (mg/dL) (70-110) mg/dL Calcium (8.4-10.2) mg/dL Magnesium (1.6-2.3) mg/dL Total Protein (6.3-8.2) g/dL Albumin (3.5-5.0) g/dL Arterial Blood Potassium (3.4-4.5) mmol/L Arterial Blood Glucose 135 H 132 H 165 H (75-99) mg/dL Crossmatch 11/29/22 11/29/22 11/29/22 Range/Units 11:53 13:30 13:38 WBC (3.8-10.6) k/uL RBC 2.48 L (4.30-5.90) m/uL Hgb 7.7 L D (13.0-17.5) gm/dL Hct 23.0 L (39.0-53.0) % Neutrophils # (1.3-7.7) k/uL PT (9.0-12.0) sec INR (<1.2) ABG pH (7.35-7.45) ABG pCO2 (35-45) mmHg ABG pO2 253 H (83-108) mmHg ABG Total CO2 (19-24) mmol/L ABG O2 Saturation 99.9 H (94-97) % ABG Hematocrit 24 L (34.0-46.0) % ABG Potassium (3.4-4.5) mmol/L ABG Ionized Calcium 4.2 L (4.5-5.3) mg/dL ABG Glucose 150 H (75-99) mg/dL Hemoglobin 7.8 L (13.0-17.5) gm/dL Chloride (98-107) mmol/L BUN (9-20) mg/dL Creatinine (0.66-1.25) mg/dL Glucose (74-99) mg/dL POC Glucose (mg/dL) 150 H (70-110) mg/dL Calcium (8.4-10.2) mg/dL Magnesium (1.6-2.3) mg/dL Total Protein (6.3-8.2) g/dL Albumin (3.5-5.0) g/dL Arterial Blood Potassium (3.4-4.5) mmol/L Arterial Blood Glucose 150 H (75-99) mg/dL Crossmatch 11/29/22 11/29/22 11/29/22 Range/Units 13:38 13:38 14:03 WBC (3.8-10.6) k/uL RBC (4.30-5.90) m/uL Hgb (13.0-17.5) gm/dL Hct (39.0-53.0) % Neutrophils # (1.3-7.7) k/uL PT 12.6 H (9.0-12.0) sec INR 1.2 H (<1.2) ABG pH (7.35-7.45) ABG pCO2 (35-45) mmHg ABG pO2 (83-108) mmHg ABG Total CO2 (19-24) mmol/L ABG O2 Saturation (94-97) % ABG Hematocrit (34.0-46.0) % ABG Potassium (3.4-4.5) mmol/L ABG Ionized Calcium (4.5-5.3) mg/dL ABG Glucose (75-99) mg/dL Hemoglobin (13.0-17.5) gm/dL Chloride 109 H (98-107) mmol/L BUN 26 H (9-20) mg/dL Creatinine 1.62 H (0.66-1.25) mg/dL Glucose 135 H (74-99) mg/dL POC Glucose (mg/dL) 152 H (70-110) mg/dL Calcium 7.3 L (8.4-10.2) mg/dL Magnesium 1.4 L (1.6-2.3) mg/dL Total Protein 5.1 L (6.3-8.2) g/dL Albumin 3.4 L (3.5-5.0) g/dL Arterial Blood Potassium (3.4-4.5) mmol/L Arterial Blood Glucose (75-99) mg/dL Crossmatch 11/29/22 11/29/22 11/29/22 Range/Units 14:55 14:58 16:06 WBC (3.8-10.6) k/uL RBC 2.62 L (4.30-5.90) m/uL Hgb 8.2 L (13.0-17.5) gm/dL Hct 24.3 L (39.0-53.0) % Neutrophils # (1.3-7.7) k/uL PT (9.0-12.0) sec INR (<1.2) ABG pH (7.35-7.45) ABG pCO2 (35-45) mmHg ABG pO2 (83-108) mmHg ABG Total CO2 (19-24) mmol/L ABG O2 Saturation (94-97) % ABG Hematocrit (34.0-46.0) % ABG Potassium (3.4-4.5) mmol/L ABG Ionized Calcium (4.5-5.3) mg/dL ABG Glucose (75-99) mg/dL Hemoglobin (13.0-17.5) gm/dL Chloride (98-107) mmol/L BUN (9-20) mg/dL Creatinine (0.66-1.25) mg/dL Glucose (74-99) mg/dL POC Glucose (mg/dL) 181 H 189 H (70-110) mg/dL Calcium (8.4-10.2) mg/dL Magnesium (1.6-2.3) mg/dL Total Protein (6.3-8.2) g/dL Albumin (3.5-5.0) g/dL Arterial Blood Potassium (3.4-4.5) mmol/L Arterial Blood Glucose (75-99) mg/dL Crossmatch 11/29/22 11/29/22 11/29/22 Range/Units 17:03 18:04 18:05 WBC 11.7 H (3.8-10.6) k/uL RBC 2.63 L (4.30-5.90) m/uL Hgb 8.1 L (13.0-17.5) gm/dL Hct 24.5 L (39.0-53.0) % Neutrophils # 9.4 H (1.3-7.7) k/uL PT (9.0-12.0) sec INR (<1.2) ABG pH (7.35-7.45) ABG pCO2 (35-45) mmHg ABG pO2 (83-108) mmHg ABG Total CO2 (19-24) mmol/L ABG O2 Saturation (94-97) % ABG Hematocrit (34.0-46.0) % ABG Potassium (3.4-4.5) mmol/L ABG Ionized Calcium (4.5-5.3) mg/dL ABG Glucose (75-99) mg/dL Hemoglobin (13.0-17.5) gm/dL Chloride (98-107) mmol/L BUN (9-20) mg/dL Creatinine (0.66-1.25) mg/dL Glucose (74-99) mg/dL POC Glucose (mg/dL) 197 H 208 H (70-110) mg/dL Calcium (8.4-10.2) mg/dL Magnesium (1.6-2.3) mg/dL Total Protein (6.3-8.2) g/dL Albumin (3.5-5.0) g/dL Arterial Blood Potassium (3.4-4.5) mmol/L Arterial Blood Glucose (75-99) mg/dL Crossmatch
[2022-11-29 18:28] LABS: ABG Base Excess -3.7 mmol/L; ABG HCO3 22 mmol/L (21-25); ABG PCO2 40 mmHg (35-45); ABG PH 7.35 (7.35-7.45); ABG PO2 90 mmHg (83-108); ABG TCO2 23 mmol/L (19-24)
[2022-11-29 18:29] LABS: Allen Test Performed? no
[2022-11-29 18:30] LABS: Allen Test Performed? no
[2022-11-29] MEDS: ACETAMINOPHEN IV (For NPO) 1,000 MG in EMPTY BAG 1 BAG IVPB SCH ×2 (18:51→23:42)
[2022-11-29 19:01] LABS: Glucose,Whole Blood 176 mg/dL (70-110)
[2022-11-29] MEDS: AMIODARONE 450 MG in DEXTROSE 5% IN WATER 250 ML IV SCH ×2 (19:01)
[2022-11-29 19:53] LABS: Glucose,Whole Blood 184 mg/dL (70-110)
[2022-11-29 20:26] LABS: Basophils % (A) 0 %; Eosinophils % (A) 0 %; HCT 24.9 % (39.0-53.0); HGB 8.5 gm/dL (13.0-17.5); Lymphocytes % (A) 10 %; MCH 31.6 pg (25.0-35.0); MCHC 34.2 g/dL (31.0-37.0); MCV 92.4 fL (80.0-100.0); Mean Platelet Volume 9.8; Monocytes # (A) 0.7 k/uL (0-1.0); Monocytes % (A) 6 %; Neutrophils # (A) 8.6 k/uL (1.3-7.7); Neutrophils % (A) 83 %; Platelet Count 196 k/uL (150-450); RBC 2.69 m/uL (4.30-5.90); RDW 14.4 % (11.5-15.5); WBC 10.4 k/uL (3.8-10.6)
[2022-11-29] MEDS: IPRATROPIUM 0.5 MG/2.5 ML NEBU INHALATION SCH (20:34)
[2022-11-29] MEDS: ALBUTEROL NEBULIZED 2.5 MG/3 ML INHALATION SCH (20:34)
[2022-11-29 20:49] LABS: Glucose,Whole Blood 175 mg/dL (70-110)
[2022-11-29] MEDS ORDERED: MORPHINE SULFATE 2 MG/ML SYRINGE IVP PRN (20:57)
[2022-11-29 22:05] LABS: Glucose,Whole Blood 152 mg/dL (70-110)
[2022-11-29 22:57] LABS: Glucose,Whole Blood 130 mg/dL (70-110)
[2022-11-29 23:51] LABS: Glucose,Whole Blood 119 mg/dL (70-110)
[2022-11-30 00:35] LABS: Glucose,Whole Blood 102 mg/dL (70-110)
[2022-11-30 01:00] LABS: Glucose,Whole Blood 102 mg/dL (70-110)
[2022-11-30 02:10] LABS: Glucose,Whole Blood 135 mg/dL (70-110)
[2022-11-30 02:57] LABS: Glucose,Whole Blood 133 mg/dL (70-110)
[2022-11-30] MEDS: ALBUMIN HUMAN 5% 250 ML in EMPTY BAG 1 BAG IVPB PRN ×3 (03:21→07:16)
[2022-11-30 03:58] LABS: Glucose,Whole Blood 122 mg/dL (70-110)
[2022-11-30 04:29] LABS: Basophils % (A) 0 %; Eosinophils % (A) 0 %; HGB 8.3 gm/dL (13.0-17.5); Lymphocytes # (A) 0.9 k/uL (1.0-4.8); Lymphocytes % (A) 9 %; MCH 30.4 pg (25.0-35.0); MCHC 33.4 g/dL (31.0-37.0); MCV 91.1 fL (80.0-100.0); Mean Platelet Volume 8.9; Monocytes # (A) 0.6 k/uL (0-1.0); Monocytes % (A) 6 %; Neutrophils # (A) 8.5 k/uL (1.3-7.7); Neutrophils % (A) 84 %; Platelet Count 201 k/uL (150-450); RBC 2.75 m/uL (4.30-5.90); WBC 10.1 k/uL (3.8-10.6)
[2022-11-30] MEDS: DILTIAZEM 125 MG in SODIUM CHLORIDE 0.9% 100 ML IV SCH (04:36)
[2022-11-30] MEDS: INSULIN REGULAR 100 UNIT in SODIUM CHLORIDE 0.9% 100 ML IV SCH (04:37)
[2022-11-30] MEDS: AMIODARONE 450 MG in DEXTROSE 5% IN WATER 250 ML IV SCH ×2 (04:37)
[2022-11-30 04:48] LABS: Albumin 3.4 g/dL (3.5-5.0); Calcium 7.7 mg/dL (8.4-10.2); Magnesium 1.6 mg/dL (1.6-2.3); Potassium 4.2 mmol/L (3.5-5.1); Total Bilirubin 0.4 mg/dL (0.2-1.3); Total Protein 5.2 g/dL (6.3-8.2)
[2022-11-30 05:00] LABS: Glucose,Whole Blood 100 mg/dL (70-110)
[2022-11-30] MEDS: HYDROcodone/APAP 5-325MG 1 EACH TAB PO PRN ×3 (05:28→15:01)
[2022-11-30] MEDS: MAGNESIUM SULFATE-D5W PMX 1 GM in DEXTROSE/WATER 1 100ML.BAG IVPB SCH ×2 (05:46→07:01)
[2022-11-30 06:04] LABS: Glucose,Whole Blood 134 mg/dL (70-110)
[2022-11-30 06:53] LABS: Glucose,Whole Blood 180 mg/dL (70-110)
[2022-11-30] MEDS: LEVOTHYROXINE 50 MCG TAB PO SCH (07:03)
[2022-11-30] MEDS: FERROUS SULFATE 325 MG TAB PO SCH ×2 (07:03→16:25)
[2022-11-30] MEDS ORDERED: MORPHINE SULFATE 2 MG/ML SYRINGE IVP PRN (07:44)
[2022-11-30 08:05] LABS: Glucose,Whole Blood 160 mg/dL (70-110)
[2022-11-30] MEDS: ALBUTEROL NEBULIZED 2.5 MG/3 ML INHALATION SCH ×4 (08:06→20:27)
[2022-11-30] MEDS: IPRATROPIUM 0.5 MG/2.5 ML NEBU INHALATION SCH ×4 (08:06→20:27)
[2022-11-30] MEDS: HEPARIN SODIUM,PORCINE/PF 5,000 UNIT/0.5 ML SYRINGE SQ SCH ×2 (08:36→16:25)
[2022-11-30] MEDS: DILTIAZEM ORAL 30 MG TAB PO SCH ×2 (08:37→16:25)
[2022-11-30 09:00] LABS: Glucose,Whole Blood 128 mg/dL (70-110)
[2022-11-30] MEDS ORDERED: PANTOPRAZOLE 40 MG/10 ML VIAL IVP SCH (09:00)
[2022-11-30] MEDS ORDERED: bisacodyL 10 MG SUPP RECTAL PRN (09:00)
[2022-11-30] MEDS ORDERED: NON FORMULARY DRUG (Vitamin B Complex [Vitamin B Complex] 1 EACH Capsule) PO SCH (09:00)
[2022-11-30] MEDS ORDERED: MAGNESIUM HYDROXIDE 2,400 MG/10 ML CUP PO PRN (09:00)
[2022-11-30 09:21] VITALS: BMI 25.0
--- NOTE | 2022-11-30 09:21 | XR ---
EXAMINATION TYPE: XR chest 1V portable DATE OF EXAM: 11/30/2022 Comparison: 11/29/2022 Clinical History: 77-year-old male Post Operative Cardiac Surgery Findings: Heart mildly enlarged. Interstitial density has increased. Patchy retrocardiac and left basilar opaci ty similar to slightly increased. Left-sided chest tube in place. A trace 8 mm left apical pneumothor ax now noted. Median sternotomy wires and post-CABG clips. Mediastinal drains noted. Right-sided ches t tube also present. Right IJ Mont[place]-Joe catheter tip likely within the upper interlobar right pulmona ry artery branch. Impression: 1. Trace 8 mm left apical pneumothorax now noted. Bilateral chest tubes in place. 2. Right IJ [place]-Joe catheter tip probably in the region of the proximal interlobar right pulmonary artery branch. 3. Mild cardiomegaly. Increasing interstitial changes, correlate for developing mild pulmonary vascul ar congestion. Similar to minimally increased retrocardiac and left basilar atelectasis.
[2022-11-30] MEDS: ATORVASTATIN 40 MG TAB PO SCH (09:34)
[2022-11-30] MEDS: ASCORBIC ACID 500 MG TAB PO SCH (09:34)
[2022-11-30] MEDS: ASPIRIN 325 MG TAB PO SCH (09:34)
[2022-11-30] MEDS: CHOLECALCIFEROL 25 MCG (1000 IU) TABLET PO SCH (09:34)
[2022-11-30] MEDS: METOPROLOL TARTRATE 12.5 MG TAB PO SCH ×2 (09:34→21:04)
[2022-11-30] MEDS: ZINC SULFATE 220 MG CAP PO SCH (09:36)
[2022-11-30] MEDS: CLOPIDOGREL 75 MG TAB PO SCH (09:36)
--- NOTE | 2022-11-30 10:04 | P.PN ---
Subjective Progress Note Date: 11/30/22 Principal diagnosis: Coronary artery disease. Previous medical history of hypertension, hyperlipidemia, [id number] diabetes, previous tobacco dependence, remote history of pneumonia POD #1 off-pump coronary artery bypass graft 3 with left internal mammary artery to the left anterior descending artery, left radial artery graft to the obtuse marginal artery, reverse saphenous vein graft to the posterior descending artery, endovascular vein harvest from the left thigh, left endovascular radial artery harvest and ligation of left atrial appendage with a 35 mm Atricure clip The patient was seen and examined sitting up in a recliner in the ICU in no acute distress. He was successfully extubated last night at 18:40. Does complain of post surgical pain which is controlled on current medication regimen, states it hurts with taking a deep breath, denies shortness of breath. Remains in sinus rhythm, hemodynamically stable. Was on IV amio for afib prophylaxis, cardizem and NTG for vessel spasm prophylaxis. Labs and CXR reviewed. Right internal jugular swan/cordis, mediastinal/leg/right chest tubes, arterial line all present. No other new concerns. Objective - Vital Signs Vital signs: Vital Signs Temp 97.7 F 11/30/22 08:00 Pulse 75 11/30/22 08:18 Resp 14 11/30/22 08:18 BP 114/57 11/30/22 08:00 Pulse Ox 94 L 11/30/22 08:00 FiO2 6 11/29/22 18:40 Intake & Output 11/29/22 11/30/22 11/30/22 18:59 06:59 18:59 Intake Total 186.666 3332.448 146.484 Output Total 1387 1241 150 Balance -650.008 5405.448 -3.516 Weight 81.5 kg Intake: IV 822.0 2127.8 138 ACETAMINOPHEN IV (For NPO 1000 ) 1,000 mg In Empty Bag 1 bag @ 400 mls/hr IVPB Q6HR [facility] Rx#:[id number] Albumin Human 5% 500 ml @ 250 Per Protocol IVPB ONCE ONE Rx#:[id number] Amiodarone 360 mg In 166.5 33.3 Dextrose 5% in Water 200 ml @ 1 MG/MIN 33.333 mls/ hr IV .Q6H ONE Rx#: [id number] CO/CI 100 80 20 Diltiazem 125 mg In 20 5 Sodium Chloride 0.9% 100 ml @ 5 MG/HR 5 mls/hr IV .Q24H [facility] Rx#:[id number] Lactated Ringers 1,000 ml 230 600 100 @ 20 mls/hr IV .Q24H [facility] Rx#:[id number] Magnesium Sulfate-D5w Pmx 200 1 gm In Dextrose/Water 1 100ml.bag @ 100 mls/hr IVPB Q1H [facility] Rx#: [id number] Nitroglycerin-D5w Pmx 50 7.5 1.5 mg In Dextrose/Water 1 250ml.bag @ 5 MCG/MIN 1.5 mls/hr IV .Q24H [facility] Rx#: [id number] Pressure bags 45 108 18 ceFAZolin 2 gm In Sodium 50 Chloride 0.9% 50 ml @ 100 mls/hr IVPB Q8H [facility] Rx#: [id number] Intake, IV Titration 16.640 295.648 8.484 Amount Amiodarone 450 mg In 160.003 Dextrose 5% in Water 250 ml @ 0.5 MG/MIN 16.667 mls/hr IV .Q15H [facility] Rx#: [id number] Diltiazem 125 mg In 70.5 Sodium Chloride 0.9% 100 ml @ 5 MG/HR 5 mls/hr IV .Q24H [facility] Rx#:[id number] Insulin Regular 100 unit 16.640 65.145 8.484 In Sodium Chloride 0.9% 100 ml @ Per Protocol IV .Q0M [facility] Rx#:[id number] Output: Chest Tube Drainage 314 541 90 Chest Tube Bilateral 133 161 50 Chest Tube Mediastinal 181 380 40 Urine 523 700 60 Estimated Blood Loss 550 Other: Voiding Method Indwelling Catheter Indwelling Catheter ABP, PAP, CO, CI - Last Documented Arterial Blood Pressure 107/36 Pulmonary Artery Pressure 24/3 Cardiac Output 5 Cardiac Index 2.4 - Exam CONSTITUTIONAL: Appears comfortable, cooperative, no acute distress RESPIRATORY: Lungs sounds diminished bilaterally. Respirations even, nonlabor ed. Currently on 3 LPM NC with oxygen saturation 94%. Able to achieve 500 mL on incentive spirometry. Weak cough. CARDIOVASCULAR: S1, S2 present. Regular rate and rhythm, sinus rhythm on telemetry. Sternum stable. Palpable peripheral pulses bilaterally. Generalized edema present. No calf pain or tenderness noted. Heart hugger in place with patient demonstrating appropriate use. Antiembolism stockings, SCDs present. GASTROINTESTINAL: Abdomen soft, nontender, nondistended. Hypoactive bowel sounds present 4 quadrants. Tolerating clear liquids. Denies flatus GENITOURINARY: Fu present draining clear, yellow urine. Output overnight 30-65 mL per hour INTEGUMENTARY: Skin is warm and dry with evidence of good perfusion. Anterior chest incision well approximated and covered with dry intact dressing. Left lower extremity EVH site, left radial artery harvest site well approximated without redness or drainage. NEUROLOGIC: Cranial nerves II through XII intact MUSKULOSKELETAL: Able to move all extremities, strength equal bilaterally, gait normal PSYCHIATRIC: Alert and oriented to person place and time, appropriate affect, intact judgment and insight INVASIVE LINES AND TUBES: Mediastinal/left/right pleural chest tubes present and connected to wall suction, no air leaks present. Mediastinal tube with 260 mL serosanguineous drainage overnight, 650 mL since surgery. Left/right pleural chest tubes with 115 mL serosanguineous drainage overnight, 350 mL since surge ry. Right internal jugular [place]/Cordis, right radial arterial line present. Last CO/CI 5.3/2.5, PA 27/6, CVP 1 - Allied health notes Allied health notes reviewed: nursing - Labs CBC & Chem 7: 11/30/22 03:55 11/30/22 03:55 Labs: Abnormal Lab Results - Last 24 Hours (Table) 11/22/22 11/29/22 11/29/22 Range/Units 10:00 09:42 10:40 WBC (3.8-10.6) k/uL RBC (4.30-5.90) m/uL Hgb (13.0-17.5) gm/dL Hct (39.0-53.0) % Neutrophils # (1.3-7.7) k/uL Lymphocytes # (1.0-4.8) k/uL PT (9.0-12.0) sec INR (<1.2) ABG pH 7.30 L (7.35-7.45) ABG pCO2 47 H (35-45) mmHg ABG pO2 219 H 234 H (83-108) mmHg ABG Total CO2 25 H (19-24) mmol/L ABG O2 Saturation 99.5 H 99.6 H (94-97) % ABG Hematocrit 29 L (34.0-46.0) % ABG Potassium 5.1 H (3.4-4.5) mmol/L ABG Ionized Calcium 4.3 L (4.5-5.3) mg/dL ABG Glucose 167 H 135 H (75-99) mg/dL Hemoglobin 10.0 L 9.4 L (13.0-17.5) gm/dL Sodium (137-145) mmol/L Chloride (98-107) mmol/L Carbon Dioxide (22-30) mmol/L BUN (9-20) mg/dL Creatinine (0.66-1.25) mg/dL Glucose (74-99) mg/dL POC Glucose (mg/dL) (70-110) mg/dL Calcium (8.4-10.2) mg/dL Magnesium (1.6-2.3) mg/dL Total Protein (6.3-8.2) g/dL Albumin (3.5-5.0) g/dL Arterial Blood Potassium 5.1 H (3.4-4.5) mmol/L Arterial Blood Glucose 167 H 135 H (75-99) mg/dL Crossmatch See Detail 11/29/22 11/29/22 11/29/22 Range/Units 11:15 11:53 11:53 WBC (3.8-10.6) k/uL RBC (4.30-5.90) m/uL Hgb (13.0-17.5) gm/dL Hct (39.0-53.0) % Neutrophils # (1.3-7.7) k/uL Lymphocytes # (1.0-4.8) k/uL PT (9.0-12.0) sec INR (<1.2) ABG pH (7.35-7.45) ABG pCO2 (35-45) mmHg ABG pO2 237 H 224 H 253 H (83-108) mmHg ABG Total CO2 (19-24) mmol/L ABG O2 Saturation 100.0 H 99.9 H 99.9 H (94-97) % ABG Hematocrit 26 L 25 L 24 L (34.0-46.0) % ABG Potassium (3.4-4.5) mmol/L ABG Ionized Calcium 4.2 L 4.3 L 4.2 L (4.5-5.3) mg/dL ABG Glucose 132 H 165 H 150 H (75-99) mg/dL Hemoglobin 8.4 L 8.3 L 7.8 L (13.0-17.5) gm/dL Sodium (137-145) mmol/L Chloride (98-107) mmol/L Carbon Dioxide (22-30) mmol/L BUN (9-20) mg/dL Creatinine (0.66-1.25) mg/dL Glucose (74-99) mg/dL POC Glucose (mg/dL) (70-110) mg/dL Calcium (8.4-10.2) mg/dL Magnesium (1.6-2.3) mg/dL Total Protein (6.3-8.2) g/dL Albumin (3.5-5.0) g/dL Arterial Blood Potassium (3.4-4.5) mmol/L Arterial Blood Glucose 132 H 165 H 150 H (75-99) mg/dL Crossmatch 11/29/22 11/29/22 11/29/22 Range/Units 13:30 13:38 13:38 WBC (3.8-10.6) k/uL RBC 2.48 L (4.30-5.90) m/uL Hgb 7.7 L D (13.0-17.5) gm/dL Hct 23.0 L (39.0-53.0) % Neutrophils # (1.3-7.7) k/uL Lymphocytes # (1.0-4.8) k/uL PT 12.6 H (9.0-12.0) sec INR 1.2 H (<1.2) ABG pH (7.35-7.45) ABG pCO2 (35-45) mmHg ABG pO2 (83-108) mmHg ABG Total CO2 (19-24) mmol/L ABG O2 Saturation (94-97) % ABG Hematocrit (34.0-46.0) % ABG Potassium (3.4-4.5) mmol/L ABG Ionized Calcium (4.5-5.3) mg/dL ABG Glucose (75-99) mg/dL Hemoglobin (13.0-17.5) gm/dL Sodium (137-145) mmol/L Chloride (98-107) mmol/L Carbon Dioxide (22-30) mmol/L BUN (9-20) mg/dL Creatinine (0.66-1.25) mg/dL Glucose (74-99) mg/dL POC Glucose (mg/dL) 150 H (70-110) mg/dL Calcium (8.4-10.2) mg/dL Magnesium (1.6-2.3) mg/dL Total Protein (6.3-8.2) g/dL Albumin (3.5-5.0) g/dL Arterial Blood Potassium (3.4-4.5) mmol/L Arterial Blood Glucose (75-99) mg/dL Crossmatch 11/29/22 11/29/22 11/29/22 Range/Units 13:38 14:03 14:03 WBC (3.8-10.6) k/uL RBC (4.30-5.90) m/uL Hgb (13.0-17.5) gm/dL Hct (39.0-53.0) % Neutrophils # (1.3-7.7) k/uL Lymphocytes # (1.0-4.8) k/uL PT (9.0-12.0) sec INR (<1.2) ABG pH (7.35-7.45) ABG pCO2 (35-45) mmHg ABG pO2 192 H (83-108) mmHg ABG Total CO2 (19-24) mmol/L ABG O2 Saturation 99.8 H (94-97) % ABG Hematocrit (34.0-46.0) % ABG Potassium (3.4-4.5) mmol/L ABG Ionized Calcium (4.5-5.3) mg/dL ABG Glucose (75-99) mg/dL Hemoglobin (13.0-17.5) gm/dL Sodium (137-145) mmol/L Chloride 109 H (98-107) mmol/L Carbon Dioxide (22-30) mmol/L BUN 26 H (9-20) mg/dL Creatinine 1.62 H (0.66-1.25) mg/dL Glucose 135 H (74-99) mg/dL POC Glucose (mg/dL) 152 H (70-110) mg/dL Calcium 7.3 L (8.4-10.2) mg/dL Magnesium 1.4 L (1.6-2.3) mg/dL Total Protein 5.1 L (6.3-8.2) g/dL Albumin 3.4 L (3.5-5.0) g/dL Arterial Blood Potassium (3.4-4.5) mmol/L Arterial Blood Glucose (75-99) mg/dL Crossmatch 11/29/22 11/29/22 11/29/22 Range/Units 14:55 14:58 16:06 WBC (3.8-10.6) k/uL RBC 2.62 L (4.30-5.90) m/uL Hgb 8.2 L (13.0-17.5) gm/dL Hct 24.3 L (39.0-53.0) % Neutrophils # (1.3-7.7) k/uL Lymphocytes # (1.0-4.8) k/uL PT (9.0-12.0) sec INR (<1.2) ABG pH (7.35-7.45) ABG pCO2 (35-45) mmHg ABG pO2 (83-108) mmHg ABG Total CO2 (19-24) mmol/L ABG O2 Saturation (94-97) % ABG Hematocrit (34.0-46.0) % ABG Potassium (3.4-4.5) mmol/L ABG Ionized Calcium (4.5-5.3) mg/dL ABG Glucose (75-99) mg/dL Hemoglobin (13.0-17.5) gm/dL Sodium (137-145) mmol/L Chloride (98-107) mmol/L Carbon Dioxide (22-30) mmol/L BUN (9-20) mg/dL Creatinine (0.66-1.25) mg/dL Glucose (74-99) mg/dL POC Glucose (mg/dL) 181 H 189 H (70-110) mg/dL Calcium (8.4-10.2) mg/dL Magnesium (1.6-2.3) mg/dL Total Protein (6.3-8.2) g/dL Albumin (3.5-5.0) g/dL Arterial Blood Potassium (3.4-4.5) mmol/L Arterial Blood Glucose (75-99) mg/dL Crossmatch 03/10/2311/29/22 11/29/22 Range/Units 17:03 18:04 18:05 WBC 11.7 H (3.8-10.6) k/uL RBC 2.63 L (4.30-5.90) m/uL Hgb 8.1 L (13.0-17.5) gm/dL Hct 24.5 L (39.0-53.0) % Neutrophils # 9.4 H (1.3-7.7) k/uL Lymphocytes # (1.0-4.8) k/uL PT (9.0-12.0) sec INR (<1.2) ABG pH (7.35-7.45) ABG pCO2 (35-45) mmHg ABG pO2 (83-108) mmHg ABG Total CO2 (19-24) mmol/L ABG O2 Saturation (94-97) % ABG Hematocrit (34.0-46.0) % ABG Potassium (3.4-4.5) mmol/L ABG Ionized Calcium (4.5-5.3) mg/dL ABG Glucose (75-99) mg/dL Hemoglobin (13.0-17.5) gm/dL Sodium (137-145) mmol/L Chloride (98-107) mmol/L Carbon Dioxide (22-30) mmol/L BUN (9-20) mg/dL Creatinine (0.66-1.25) mg/dL Glucose (74-99) mg/dL POC Glucose (mg/dL) 197 H 208 H (70-110) mg/dL Calcium (8.4-10.2) mg/dL Magnesium (1.6-2.3) mg/dL Total Protein (6.3-8.2) g/dL Albumin (3.5-5.0) g/dL Arterial Blood Potassium (3.4-4.5) mmol/L Arterial Blood Glucose (75-99) mg/dL Crossmatch 11/29/22 11/29/22 11/29/22 Range/Units 18:26 19:00 19:52 WBC (3.8-10.6) k/uL RBC (4.30-5.90) m/uL Hgb (13.0-17.5) gm/dL Hct (39.0-53.0) % Neutrophils # (1.3-7.7) k/uL Lymphocytes # (1.0-4.8) k/uL PT (9.0-12.0) sec INR (<1.2) ABG pH (7.35-7.45) ABG pCO2 (35-45) mmHg ABG pO2 (83-108) mmHg ABG Total CO2 (19-24) mmol/L ABG O2 Saturation 98.0 H (94-97) % ABG Hematocrit (34.0-46.0) % ABG Potassium (3.4-4.5) mmol/L ABG Ionized Calcium (4.5-5.3) mg/dL ABG Glucose (75-99) mg/dL Hemoglobin (13.0-17.5) gm/dL Sodium (137-145) mmol/L Chloride (98-107) mmol/L Carbon Dioxide (22-30) mmol/L BUN (9-20) mg/dL Creatinine (0.66-1.25) mg/dL Glucose (74-99) mg/dL POC Glucose (mg/dL) 176 H 184 H (70-110) mg/dL Calcium (8.4-10.2) mg/dL Magnesium (1.6-2.3) mg/dL Total Protein (6.3-8.2) g/dL Albumin (3.5-5.0) g/dL Arterial Blood Potassium (3.4-4.5) mmol/L Arterial Blood Glucose (75-99) mg/dL Crossmatch 11/29/22 11/29/22 11/29/22 Range/Units 20:10 20:47 22:04 WBC (3.8-10.6) k/uL RBC 2.69 L (4.30-5.90) m/uL Hgb 8.5 L (13.0-17.5) gm/dL Hct 24.9 L (39.0-53.0) % Neutrophils # 8.6 H (1.3-7.7) k/uL Lymphocytes # (1.0-4.8) k/uL PT (9.0-12.0) sec INR (<1.2) ABG pH (7.35-7.45) ABG pCO2 (35-45) mmHg ABG pO2 (83-108) mmHg ABG Total CO2 (19-24) mmol/L ABG O2 Saturation (94-97) % ABG Hematocrit (34.0-46.0) % ABG Potassium (3.4-4.5) mmol/L ABG Ionized Calcium (4.5-5.3) mg/dL ABG Glucose (75-99) mg/dL Hemoglobin (13.0-17.5) gm/dL Sodium (137-145) mmol/L Chloride (98-107) mmol/L Carbon Dioxide (22-30) mmol/L BUN (9-20) mg/dL Creatinine (0.66-1.25) mg/dL Glucose (74-99) mg/dL POC Glucose (mg/dL) 175 H 152 H (70-110) mg/dL Calcium (8.4-10.2) mg/dL Magnesium (1.6-2.3) mg/dL Total Protein (6.3-8.2) g/dL Albumin (3.5-5.0) g/dL Arterial Blood Potassium (3.4-4.5) mmol/L Arterial Blood Glucose (75-99) mg/dL Crossmatch 11/29/22 11/29/22 11/30/22 Range/Units 22:56 23:50 02:09 WBC (3.8-10.6) k/uL RBC (4.30-5.90) m/uL Hgb (13.0-17.5) gm/dL Hct (39.0-53.0) % Neutrophils # (1.3-7.7) k/uL Lymphocytes # (1.0-4.8) k/uL PT (9.0-12.0) sec INR (<1.2) ABG pH (7.35-7.45) ABG pCO2 (35-45) mmHg ABG pO2 (83-108) mmHg ABG Total CO2 (19-24) mmol/L ABG O2 Saturation (94-97) % ABG Hematocrit (34.0-46.0) % ABG Potassium (3.4-4.5) mmol/L ABG Ionized Calcium (4.5-5.3) mg/dL ABG Glucose (75-99) mg/dL Hemoglobin (13.0-17.5) gm/dL Sodium (137-145) mmol/L Chloride (98-107) mmol/L Carbon Dioxide (22-30) mmol/L BUN (9-20) mg/dL Creatinine (0.66-1.25) mg/dL Glucose (74-99) mg/dL POC Glucose (mg/dL) 130 H 119 H 135 H (70-110) mg/dL Calcium (8.4-10.2) mg/dL Magnesium (1.6-2.3) mg/dL Total Protein (6.3-8.2) g/dL Albumin (3.5-5.0) g/dL Arterial Blood Potassium (3.4-4.5) mmol/L Arterial Blood Glucose (75-99) mg/dL Crossmatch 11/30/22 11/30/22 11/30/22 Range/Units 02:56 03:55 03:55 WBC (3.8-10.6) k/uL RBC 2.75 L (4.30-5.90) m/uL Hgb 8.3 L (13.0-17.5) gm/dL Hct 25.0 L (39.0-53.0) % Neutrophils # 8.5 H (1.3-7.7) k/uL Lymphocytes # 0.9 L (1.0-4.8) k/uL PT (9.0-12.0) sec INR (<1.2) ABG pH (7.35-7.45) ABG pCO2 (35-45) mmHg ABG pO2 (83-108) mmHg ABG Total CO2 (19-24) mmol/L ABG O2 Saturation (94-97) % ABG Hematocrit (34.0-46.0) % ABG Potassium (3.4-4.5) mmol/L ABG Ionized Calcium (4.5-5.3) mg/dL ABG Glucose (75-99) mg/dL Hemoglobin (13.0-17.5) gm/dL Sodium 136 L (137-145) mmol/L Chloride (98-107) mmol/L Carbon Dioxide 21 L (22-30) mmol/L BUN 24 H (9-20) mg/dL Creatinine 1.68 H (0.66-1.25) mg/dL Glucose 112 H (74-99) mg/dL POC Glucose (mg/dL) 133 H (70-110) mg/dL Calcium 7.7 L (8.4-10.2) mg/dL Magnesium (1.6-2.3) mg/dL Total Protein 5.2 L (6.3-8.2) g/dL Albumin 3.4 L (3.5-5.0) g/dL Arterial Blood Potassium (3.4-4.5) mmol/L Arterial Blood Glucose (75-99) mg/dL Crossmatch 11/30/22 11/30/22 11/30/22 Range/Units 03:56 06:03 06:52 WBC (3.8-10.6) k/uL RBC (4.30-5.90) m/uL Hgb (13.0-17.5) gm/dL Hct (39.0-53.0) % Neutrophils # (1.3-7.7) k/uL Lymphocytes # (1.0-4.8) k/uL PT (9.0-12.0) sec INR (<1.2) ABG pH (7.35-7.45) ABG pCO2 (35-45) mmHg ABG pO2 (83-108) mmHg ABG Total CO2 (19-24) mmol/L ABG O2 Saturation (94-97) % ABG Hematocrit (34.0-46.0) % ABG Potassium (3.4-4.5) mmol/L ABG Ionized Calcium (4.5-5.3) mg/dL ABG Glucose (75-99) mg/dL Hemoglobin (13.0-17.5) gm/dL Sodium (137-145) mmol/L Chloride (98-107) mmol/L Carbon Dioxide (22-30) mmol/L BUN (9-20) mg/dL Creatinine (0.66-1.25) mg/dL Glucose (74-99) mg/dL POC Glucose (mg/dL) 122 H 134 H 180 H (70-110) mg/dL Calcium (8.4-10.2) mg/dL Magnesium (1.6-2.3) mg/dL Total Protein (6.3-8.2) g/dL Albumin (3.5-5.0) g/dL Arterial Blood Potassium (3.4-4.5) mmol/L Arterial Blood Glucose (75-99) mg/dL Crossmatch 11/30/22 Range/Units 08:02 WBC (3.8-10.6) k/uL RBC (4.30-5.90) m/uL Hgb (13.0-17.5) gm/dL Hct (39.0-53.0) % Neutrophils # (1.3-7.7) k/uL Lymphocytes # (1.0-4.8) k/uL PT (9.0-12.0) sec INR (<1.2) ABG pH (7.35-7.45) ABG pCO2 (35-45) mmHg ABG pO2 (83-108) mmHg ABG Total CO2 (19-24) mmol/L ABG O2 Saturation (94-97) % ABG Hematocrit (34.0-46.0) % ABG Potassium (3.4-4.5) mmol/L ABG Ionized Calcium (4.5-5.3) mg/dL ABG Glucose (75-99) mg/dL Hemoglobin (13.0-17.5) gm/dL Sodium (137-145) mmol/L Chloride (98-107) mmol/L Carbon Dioxide (22-30) mmol/L BUN (9-20) mg/dL Creatinine (0.66-1.25) mg/dL Glucose (74-99) mg/dL POC Glucose (mg/dL) 160 H (70-110) mg/dL Calcium (8.4-10.2) mg/dL Magnesium (1.6-2.3) mg/dL Total Protein (6.3-8.2) g/dL Albumin (3.5-5.0) g/dL Arterial Blood Potassium (3.4-4.5) mmol/L Arterial Blood Glucose (75-99) mg/dL Crossmatch - Imaging and Cardiology Chest x-ray: image reviewed Assessment and Plan Assessment: 1. Coronary artery disease, status post 3V off pump cabg 2. Mildly reduced LV function, EF 45-50% 3. History of hypertension 4. Hyperlipidemia, treated, chol 177, LDL 91, trig 257 5. Ifg-hbvnkab-bdrxdvwzl diabetes, hgbAIc 7.8% 6. Previous tobacco dependence, preoperative FEV1 83% 7. Remote history of pneumonia 8. Hypothyroid 9. Chronic kidney disease stage III 10. Prior history of Covid, vaccinated and boosted 11. Family history of CAD Plan: 1. Continue to maximize medical therapy with ASA, plavix, statin, beta louis. Will increase beta louis as tolerated. Discontinue IV nitro 2. Continue CCB for radial artery spasm prophylaxis, will transition to oral 3. Continue amio for afib prophylaxis, will transition to oral 4. Wean oxygen as tolerated, encourage incentive spirometer 10 times every hour while awake. Bronchodilators per pulmonology 5. Increase activity as tolerated. PT/OT/cardiac rehab consulted 6. Will monitor labs, CXR 7. GI/DVT prophylaxis 8. Pain control per current medication regimen. No Toradol due to chronic kidney disease 9. Insulin management per internal medicine 10. Discontinue [place]. Connect Cordis to continuous CVP monitoring 11. Continue mediastinal/left/right chest tubes for another 24 hours 12. Continue fu for another 24 hours for strict accurate intake and output 13. Daily weights 14. More recommendations to follow
[2022-11-30 10:22] LABS: Glucose,Whole Blood 100 mg/dL (70-110)
[2022-11-30] MEDS: AMIODARONE 200 MG TAB PO SCH ×2 (10:42→21:03)
[2022-11-30 11:09] LABS: Glucose,Whole Blood 121 mg/dL (70-110)
--- NOTE | 2022-11-30 12:13 | P.PN ---
Subjective Progress Note Date: 11/30/22 This is a 77-year-old male patient with history hypertension, chronic kidney disease, diabetes mellitus, hypothyroidism, CoVID infection 3 and previous chronic tobacco dependence. He also has cardiomyopathy with ejection fraction 40-45%. Recent cardiac catheterization revealed significant coronary artery disease including 90% LAD, 99% circumflex, 99% mid RCA. He was recommended coronary artery bypass grafting. He is brought in today electively with Dr. Gomez and had undergone a off-pump coronary revascularization 3 utilizing a ALMEIDA to the LAD, saphenous vein graft to the PDA, left radial artery to the OM. He is seen in the intensive care unit. Currently sedated on mechanical ventilator and assist control mode with for a rate of 14, tidal I'm 600, FiO2 80% and a PEEP of 5. Blood gases revealed a pO2 of 253, pCO2 36, pH 7.38 that was on 100% FiO2. He is receiving lactated Ringer's at 50 MLS per hour. Insulin drip at 1.5 units per hour. Amiodarone drip at 1 mg/m. Nitroglycerin drip at 5 mcg/m. Cardizem drip at 5 mg per hour. Propofol at 45 mcg/kg/m. Cardiac output 5.9. Cardiac index 2.8. PA pressures 13/16. CVP 10. Chest x- ray reveals postoperative changes with a left lower lobe consolidation. Favoring postoperative atelectasis with a tiny pleural effusion versus inf iltrate. Mediastinal, right/left pleural chest tubes in place. White count 8.2. Hemoglobin 7.7. Platelets 164. INR 1.2. Sodium 141. Potassium 3.7. Bicarb 22. BUN 26. Creatinine 1.62. Glucose 135. AST 20. ALT 20. Total protein 5.1. Albumin 3.4. He's been initiated on bronchodilators. Heparin for DVT prophylaxis. The patient is seen today 11/30/2022 in follow-up in the intensive care unit. He is currently sitting up in a chair at the bedside. Awake and alert in no acute distress. He is maintaining good O2 saturations in the 90s on 3 L/m per nasal cannula. His lactated Ringer's at 25 ML's per hour. Insulin drip at 5 units per hour. Chest x-ray shows a trace left apical pneumothorax. Bilateral and mediastinal chest tubes remain in place. Right IJ [place] catheter in place. Mild cardiomegaly. Increasing interstitial changes. Some mild pulmonary vascular congestion. Atelectasis. Encouraged to continue working with the incentive spirometer. White count 10.1. Hemoglobin 8.3. Platelets 201. Sodium 136. Potassium 4.2. Bicarb 21. BUN 24. Creatinine 1.68. Glucose 112. Cardiac output 5.0. Cardiac index 2.4. PA pressure 27/6. Hemodynamically stable. Maintaining sinus rhythm. Objective - Vital Signs Vital signs: Vital Signs Temp 97.7 F 11/30/22 08:00 Pulse 72 11/30/22 09:00 Resp 7 L 11/30/22 09:00 BP 110/57 11/30/22 09:00 Pulse Ox 94 L 11/30/22 09:00 FiO2 6 11/29/22 18:40 Intake & Output 11/29/22 11/30/22 11/30/22 18:59 06:59 18:59 Intake Total 335.256 8056.448 192.276 Output Total 1387 1241 245 Balance -863.569 3786.448 -52.724 Weight 81.5 kg 81.5 kg Intake: IV 822.0 2127.8 172 ACETAMINOPHEN IV (For NPO 1000 ) 1,000 mg In Empty Bag 1 bag @ 400 mls/hr IVPB Q6HR [facility] Rx#:[id number] Albumin Human 5% 500 ml @ 250 Per Protocol IVPB ONCE ONE Rx#:[id number] Amiodarone 360 mg In 166.5 33.3 Dextrose 5% in Water 200 ml @ 1 MG/MIN 33.333 mls/ hr IV .Q6H [facility] Rx#: [id number] CO/CI 100 80 20 Diltiazem 125 mg In 20 5 Sodium Chloride 0.9% 100 ml @ 5 MG/HR 5 mls/hr IV .Q24H [facility] Rx#:[id number] Lactated Ringers 1,000 ml 230 600 125 @ 20 mls/hr IV .Q24H [facility] Rx#:[id number] Magnesium Sulfate-D5w Pmx 200 1 gm In Dextrose/Water 1 100ml.bag @ 100 mls/hr IVPB Q1H [facility] Rx#: [id number] Nitroglycerin-D5w Pmx 50 7.5 1.5 mg In Dextrose/Water 1 250ml.bag @ 5 MCG/MIN 1.5 mls/hr IV .Q24H [facility] Rx#: [id number] Pressure bags 45 108 27 ceFAZolin 2 gm In Sodium 50 Chloride 0.9% 50 ml @ 100 mls/hr IVPB Q8H [facility] Rx#: [id number] Intake, IV Titration 16.640 295.648 20.276 Amount Amiodarone 450 mg In 160.003 Dextrose 5% in Water 250 ml @ 0.5 MG/MIN 16.667 mls/hr IV .Q15H [facility] Rx#: [id number] Diltiazem 125 mg In 70.5 Sodium Chloride 0.9% 100 ml @ 5 MG/HR 5 mls/hr IV .Q24H [facility] Rx#:[id number] Insulin Regular 100 unit 16.640 65.145 20.276 In Sodium Chloride 0.9% 100 ml @ Per Protocol IV .Q0M [facility] Rx#:[id number] Output: Chest Tube Drainage 314 541 150 Chest Tube Bilateral 133 161 60 Chest Tube Mediastinal 181 380 90 Urine 523 700 95 Estimated Blood Loss 550 Other: Voiding Method Indwelling Catheter Indwelling Catheter ABP, PAP, CO, CI - Last Documented Arterial Blood Pressure 121/43 Pulmonary Artery Pressure 27/6 Cardiac Output 5 Cardiac Index 2.4 - Exam GENERAL EXAM: Alert, oriented 77-year-old male patient, in a chair, on 3 L nasal cannula, fairly comfortable in no apparent distress. HEAD: Normocephalic. EYES: Brisk reaction of pupils, equal size. NOSE: Clear with pink turbinates. THROAT: No erythema or exudates. NECK: No masses, no JVD. Right IJ [place]Joe catheter in place. CHEST: Sternal dressing dry and intact. Mediastinal, right and left pleural chest tubes in place. LUNGS: Equal air entry with crackles in the left base. CVS: S1 and S2 normal with no audible murmur, regular rhythm. ABDOMEN: No hepatosplenomegaly, hypoactive bowel sounds, no guarding or rigidity. SPINE: No scoliosis or deformity SKIN: No rashes CENTRAL NERVOUS SYSTEM: Sedated, tone is normal in all 4 extremities. EXTREMITIES: Rayray wrap to bilateral lower extremities. Right radial arterial line in place. There is trace peripheral edema. Peripheral pulses are intact. - Labs CBC & Chem 7: 11/30/22 03:55 11/30/22 03:55 Labs: Abnormal Lab Results - Last 24 Hours (Table) 11/22/22 11/29/22 11/29/22 Range/Units 10:00 09:42 10:40 WBC (3.8-10.6) k/uL RBC (4.30-5.90) m/uL Hgb (13.0-17.5) gm/dL Hct (39.0-53.0) % Neutrophils # (1.3-7.7) k/uL Lymphocytes # (1.0-4.8) k/uL PT (9.0-12.0) sec INR (<1.2) ABG pH 7.30 L (7.35-7.45) ABG pCO2 47 H (35-45) mmHg ABG pO2 219 H 234 H (83-108) mmHg ABG Total CO2 25 H (19-24) mmol/L ABG O2 Saturation 99.5 H 99.6 H (94-97) % ABG Hematocrit 29 L (34.0-46.0) % ABG Potassium 5.1 H (3.4-4.5) mmol/L ABG Ionized Calcium 4.3 L (4.5-5.3) mg/dL ABG Glucose 167 H 135 H (75-99) mg/dL Hemoglobin 10.0 L 9.4 L (13.0-17.5) gm/dL Sodium (137-145) mmol/L Chloride (98-107) mmol/L Carbon Dioxide (22-30) mmol/L BUN (9-20) mg/dL Creatinine (0.66-1.25) mg/dL Glucose (74-99) mg/dL POC Glucose (mg/dL) (70-110) mg/dL Calcium (8.4-10.2) mg/dL Magnesium (1.6-2.3) mg/dL Total Protein (6.3-8.2) g/dL Albumin (3.5-5.0) g/dL Arterial Blood Potassium 5.1 H (3.4-4.5) mmol/L Arterial Blood Glucose 167 H 135 H (75-99) mg/dL Crossmatch See Detail 11/29/22 11/29/22 11/29/22 Range/Units 11:15 11:53 11:53 WBC (3.8-10.6) k/uL RBC (4.30-5.90) m/uL Hgb (13.0-17.5) gm/dL Hct (39.0-53.0) % Neutrophils # (1.3-7.7) k/uL Lymphocytes # (1.0-4.8) k/uL PT (9.0-12.0) sec INR (<1.2) ABG pH (7.35-7.45) ABG pCO2 (35-45) mmHg ABG pO2 237 H 224 H 253 H (83-108) mmHg ABG Total CO2 (19-24) mmol/L ABG O2 Saturation 100.0 H 99.9 H 99.9 H (94-97) % ABG Hematocrit 26 L 25 L 24 L (34.0-46.0) % ABG Potassium (3.4-4.5) mmol/L ABG Ionized Calcium 4.2 L 4.3 L 4.2 L (4.5-5.3) mg/dL ABG Glucose 132 H 165 H 150 H (75-99) mg/dL Hemoglobin 8.4 L 8.3 L 7.8 L (13.0-17.5) gm/dL Sodium (137-145) mmol/L Chloride (98-107) mmol/L Carbon Dioxide (22-30) mmol/L BUN (9-20) mg/dL Creatinine (0.66-1.25) mg/dL Glucose (74-99) mg/dL POC Glucose (mg/dL) (70-110) mg/dL Calcium (8.4-10.2) mg/dL Magnesium (1.6-2.3) mg/dL Total Protein (6.3-8.2) g/dL Albumin (3.5-5.0) g/dL Arterial Blood Potassium (3.4-4.5) mmol/L Arterial Blood Glucose 132 H 165 H 150 H (75-99) mg/dL Crossmatch 11/29/22 11/29/22 11/29/22 Range/Units 13:30 13:38 13:38 WBC (3.8-10.6) k/uL RBC 2.48 L (4.30-5.90) m/uL Hgb 7.7 L D (13.0-17.5) gm/dL Hct 23.0 L (39.0-53.0) % Neutrophils # (1.3-7.7) k/uL Lymphocytes # (1.0-4.8) k/uL PT 12.6 H (9.0-12.0) sec INR 1.2 H (<1.2) ABG pH (7.35-7.45) ABG pCO2 (35-45) mmHg ABG pO2 (83-108) mmHg ABG Total CO2 (19-24) mmol/L ABG O2 Saturation (94-97) % ABG Hematocrit (34.0-46.0) % ABG Potassium (3.4-4.5) mmol/L ABG Ionized Calcium (4.5-5.3) mg/dL ABG Glucose (75-99) mg/dL Hemoglobin (13.0-17.5) gm/dL Sodium (137-145) mmol/L Chloride (98-107) mmol/L Carbon Dioxide (22-30) mmol/L BUN (9-20) mg/dL Creatinine (0.66-1.25) mg/dL Glucose (74-99) mg/dL POC Glucose (mg/dL) 150 H (70-110) mg/dL Calcium (8.4-10.2) mg/dL Magnesium (1.6-2.3) mg/dL Total Protein (6.3-8.2) g/dL Albumin (3.5-5.0) g/dL Arterial Blood Potassium (3.4-4.5) mmol/L Arterial Blood Glucose (75-99) mg/dL Crossmatch 11/29/22 11/29/22 11/29/22 Range/Units 13:38 14:03 14:03 WBC (3.8-10.6) k/uL RBC (4.30-5.90) m/uL Hgb (13.0-17.5) gm/dL Hct (39.0-53.0) % Neutrophils # (1.3-7.7) k/uL Lymphocytes # (1.0-4.8) k/uL PT (9.0-12.0) sec INR (<1.2) ABG pH (7.35-7.45) ABG pCO2 (35-45) mmHg ABG pO2 192 H (83-108) mmHg ABG Total CO2 (19-24) mmol/L ABG O2 Saturation 99.8 H (94-97) % ABG Hematocrit (34.0-46.0) % ABG Potassium (3.4-4.5) mmol/L ABG Ionized Calcium (4.5-5.3) mg/dL ABG Glucose (75-99) mg/dL Hemoglobin (13.0-17.5) gm/dL Sodium (137-145) mmol/L Chloride 109 H (98-107) mmol/L Carbon Dioxide (22-30) mmol/L BUN 26 H (9-20) mg/dL Creatinine 1.62 H (0.66-1.25) mg/dL Glucose 135 H (74-99) mg/dL POC Glucose (mg/dL) 152 H (70-110) mg/dL Calcium 7.3 L (8.4-10.2) mg/dL Magnesium 1.4 L (1.6-2.3) mg/dL Total Protein 5.1 L (6.3-8.2) g/dL Albumin 3.4 L (3.5-5.0) g/dL Arterial Blood Potassium (3.4-4.5) mmol/L Arterial Blood Glucose (75-99) mg/dL Crossmatch 11/29/22 11/29/22 11/29/22 Range/Units 14:55 14:58 16:06 WBC (3.8-10.6) k/uL RBC 2.62 L (4.30-5.90) m/uL Hgb 8.2 L (13.0-17.5) gm/dL Hct 24.3 L (39.0-53.0) % Neutrophils # (1.3-7.7) k/uL Lymphocytes # (1.0-4.8) k/uL PT (9.0-12.0) sec INR (<1.2) ABG pH (7.35-7.45) ABG pCO2 (35-45) mmHg ABG pO2 (83-108) mmHg ABG Total CO2 (19-24) mmol/L ABG O2 Saturation (94-97) % ABG Hematocrit (34.0-46.0) % ABG Potassium (3.4-4.5) mmol/L ABG Ionized Calcium (4.5-5.3) mg/dL ABG Glucose (75-99) mg/dL Hemoglobin (13.0-17.5) gm/dL Sodium (137-145) mmol/L Chloride (98-107) mmol/L Carbon Dioxide (22-30) mmol/L BUN (9-20) mg/dL Creatinine (0.66-1.25) mg/dL Glucose (74-99) mg/dL POC Glucose (mg/dL) 181 H 189 H (70-110) mg/dL Calcium (8.4-10.2) mg/dL Magnesium (1.6-2.3) mg/dL Total Protein (6.3-8.2) g/dL Albumin (3.5-5.0) g/dL Arterial Blood Potassium (3.4-4.5) mmol/L Arterial Blood Glucose (75-99) mg/dL Crossmatch 11/29/22 11/29/22 11/29/22 Range/Units 17:03 18:04 18:05 WBC 11.7 H (3.8-10.6) k/uL RBC 2.63 L (4.30-5.90) m/uL Hgb 8.1 L (13.0-17.5) gm/dL Hct 24.5 L (39.0-53.0) % Neutrophils # 9.4 H (1.3-7.7) k/uL Lymphocytes # (1.0-4.8) k/uL PT (9.0-12.0) sec INR (<1.2) ABG pH (7.35-7.45) ABG pCO2 (35-45) mmHg ABG pO2 (83-108) mmHg ABG Total CO2 (19-24) mmol/L ABG O2 Saturation (94-97) % ABG Hematocrit (34.0-46.0) % ABG Potassium (3.4-4.5) mmol/L ABG Ionized Calcium (4.5-5.3) mg/dL ABG Glucose (75-99) mg/dL Hemoglobin (13.0-17.5) gm/dL Sodium (137-145) mmol/L Chloride (98-107) mmol/L Carbon Dioxide (22-30) mmol/L BUN (9-20) mg/dL Creatinine (0.66-1.25) mg/dL Glucose (74-99) mg/dL POC Glucose (mg/dL) 197 H 208 H (70-110) mg/dL Calcium (8.4-10.2) mg/dL Magnesium (1.6-2.3) mg/dL Total Protein (6.3-8.2) g/dL Albumin (3.5-5.0) g/dL Arterial Blood Potassium (3.4-4.5) mmol/L Arterial Blood Glucose (75-99) mg/dL Crossmatch 11/29/22 11/29/22 11/29/22 Range/Units 18:26 19:00 19:52 WBC (3.8-10.6) k/uL RBC (4.30-5.90) m/uL Hgb (13.0-17.5) gm/dL Hct (39.0-53.0) % Neutrophils # (1.3-7.7) k/uL Lymphocytes # (1.0-4.8) k/uL PT (9.0-12.0) sec INR (<1.2) ABG pH (7.35-7.45) ABG pCO2 (35-45) mmHg ABG pO2 (83-108) mmHg ABG Total CO2 (19-24) mmol/L ABG O2 Saturation 98.0 H (94-97) % ABG Hematocrit (34.0-46.0) % ABG Potassium (3.4-4.5) mmol/L ABG Ionized Calcium (4.5-5.3) mg/dL ABG Glucose (75-99) mg/dL Hemoglobin (13.0-17.5) gm/dL Sodium (137-145) mmol/L Chloride (98-107) mmol/L Carbon Dioxide (22-30) mmol/L BUN (9-20) mg/dL Creatinine (0.66-1.25) mg/dL Glucose (74-99) mg/dL POC Glucose (mg/dL) 176 H 184 H (70-110) mg/dL Calcium (8.4-10.2) mg/dL Magnesium (1.6-2.3) mg/dL Total Protein (6.3-8.2) g/dL Albumin (3.5-5.0) g/dL Arterial Blood Potassium (3.4-4.5) mmol/L Arterial Blood Glucose (75-99) mg/dL Crossmatch 11/29/22 11/29/22 11/29/22 Range/Units 20:10 20:47 22:04 WBC (3.8-10.6) k/uL RBC 2.69 L (4.30-5.90) m/uL Hgb 8.5 L (13.0-17.5) gm/dL Hct 24.9 L (39.0-53.0) % Neutrophils # 8.6 H (1.3-7.7) k/uL Lymphocytes # (1.0-4.8) k/uL PT (9.0-12.0) sec INR (<1.2) ABG pH (7.35-7.45) ABG pCO2 (35-45) mmHg ABG pO2 (83-108) mmHg ABG Total CO2 (19-24) mmol/L ABG O2 Saturation (94-97) % ABG Hematocrit (34.0-46.0) % ABG Potassium (3.4-4.5) mmol/L ABG Ionized Calcium (4.5-5.3) mg/dL ABG Glucose (75-99) mg/dL Hemoglobin (13.0-17.5) gm/dL Sodium (137-145) mmol/L Chloride (98-107) mmol/L Carbon Dioxide (22-30) mmol/L BUN (9-20) mg/dL Creatinine (0.66-1.25) mg/dL Glucose (74-99) mg/dL POC Glucose (mg/dL) 175 H 152 H (70-110) mg/dL Calcium (8.4-10.2) mg/dL Magnesium (1.6-2.3) mg/dL Total Protein (6.3-8.2) g/dL Albumin (3.5-5.0) g/dL Arterial Blood Potassium (3.4-4.5) mmol/L Arterial Blood Glucose (75-99) mg/dL Crossmatch 11/29/22 11/29/22 11/30/22 Range/Units 22:56 23:50 02:09 WBC (3.8-10.6) k/uL RBC (4.30-5.90) m/uL Hgb (13.0-17.5) gm/dL Hct (39.0-53.0) % Neutrophils # (1.3-7.7) k/uL Lymphocytes # (1.0-4.8) k/uL PT (9.0-12.0) sec INR (<1.2) ABG pH (7.35-7.45) ABG pCO2 (35-45) mmHg ABG pO2 (83-108) mmHg ABG Total CO2 (19-24) mmol/L ABG O2 Saturation (94-97) % ABG Hematocrit (34.0-46.0) % ABG Potassium (3.4-4.5) mmol/L ABG Ionized Calcium (4.5-5.3) mg/dL ABG Glucose (75-99) mg/dL Hemoglobin (13.0-17.5) gm/dL Sodium (137-145) mmol/L Chloride (98-107) mmol/L Carbon Dioxide (22-30) mmol/L BUN (9-20) mg/dL Creatinine (0.66-1.25) mg/dL Glucose (74-99) mg/dL POC Glucose (mg/dL) 130 H 119 H 135 H (70-110) mg/dL Calcium (8.4-10.2) mg/dL Magnesium (1.6-2.3) mg/dL Total Protein (6.3-8.2) g/dL Albumin (3.5-5.0) g/dL Arterial Blood Potassium (3.4-4.5) mmol/L Arterial Blood Glucose (75-99) mg/dL Crossmatch 11/30/22 11/30/22 11/30/22 Range/Units 02:56 03:55 03:55 WBC (3.8-10.6) k/uL RBC 2.75 L (4.30-5.90) m/uL Hgb 8.3 L (13.0-17.5) gm/dL Hct 25.0 L (39.0-53.0) % Neutrophils # 8.5 H (1.3-7.7) k/uL Lymphocytes # 0.9 L (1.0-4.8) k/uL PT (9.0-12.0) sec INR (<1.2) ABG pH (7.35-7.45) ABG pCO2 (35-45) mmHg ABG pO2 (83-108) mmHg ABG Total CO2 (19-24) mmol/L ABG O2 Saturation (94-97) % ABG Hematocrit (34.0-46.0) % ABG Potassium (3.4-4.5) mmol/L ABG Ionized Calcium (4.5-5.3) mg/dL ABG Glucose (75-99) mg/dL Hemoglobin (13.0-17.5) gm/dL Sodium 136 L (137-145) mmol/L Chloride (98-107) mmol/L Carbon Dioxide 21 L (22-30) mmol/L BUN 24 H (9-20) mg/dL Creatinine 1.68 H (0.66-1.25) mg/dL Glucose 112 H (74-99) mg/dL POC Glucose (mg/dL) 133 H (70-110) mg/dL Calcium 7.7 L (8.4-10.2) mg/dL Magnesium (1.6-2.3) mg/dL Total Protein 5.2 L (6.3-8.2) g/dL Albumin 3.4 L (3.5-5.0) g/dL Arterial Blood Potassium (3.4-4.5) mmol/L Arterial Blood Glucose (75-99) mg/dL Crossmatch 11/30/22 11/30/22 11/30/22 Range/Units 03:56 06:03 06:52 WBC (3.8-10.6) k/uL RBC (4.30-5.90) m/uL Hgb (13.0-17.5) gm/dL Hct (39.0-53.0) % Neutrophils # (1.3-7.7) k/uL Lymphocytes # (1.0-4.8) k/uL PT (9.0-12.0) sec INR (<1.2) ABG pH (7.35-7.45) ABG pCO2 (35-45) mmHg ABG pO2 (83-108) mmHg ABG Total CO2 (19-24) mmol/L ABG O2 Saturation (94-97) % ABG Hematocrit (34.0-46.0) % ABG Potassium (3.4-4.5) mmol/L ABG Ionized Calcium (4.5-5.3) mg/dL ABG Glucose (75-99) mg/dL Hemoglobin (13.0-17.5) gm/dL Sodium (137-145) mmol/L Chloride (98-107) mmol/L Carbon Dioxide (22-30) mmol/L BUN (9-20) mg/dL Creatinine (0.66-1.25) mg/dL Glucose (74-99) mg/dL POC Glucose (mg/dL) 122 H 134 H 180 H (70-110) mg/dL Calcium (8.4-10.2) mg/dL Magnesium (1.6-2.3) mg/dL Total Protein (6.3-8.2) g/dL Albumin (3.5-5.0) g/dL Arterial Blood Potassium (3.4-4.5) mmol/L Arterial Blood Glucose (75-99) mg/dL Crossmatch 11/30/22 11/30/22 11/30/22 Range/Units 08:02 08:57 11:07 WBC (3.8-10.6) k/uL RBC (4.30-5.90) m/uL Hgb (13.0-17.5) gm/dL Hct (39.0-53.0) % Neutrophils # (1.3-7.7) k/uL Lymphocytes # (1.0-4.8) k/uL PT (9.0-12.0) sec INR (<1.2) ABG pH (7.35-7.45) ABG pCO2 (35-45) mmHg ABG pO2 (83-108) mmHg ABG Total CO2 (19-24) mmol/L ABG O2 Saturation (94-97) % ABG Hematocrit (34.0-46.0) % ABG Potassium (3.4-4.5) mmol/L ABG Ionized Calcium (4.5-5.3) mg/dL ABG Glucose (75-99) mg/dL Hemoglobin (13.0-17.5) gm/dL Sodium (137-145) mmol/L Chloride (98-107) mmol/L Carbon Dioxide (22-30) mmol/L BUN (9-20) mg/dL Creatinine (0.66-1.25) mg/dL Glucose (74-99) mg/dL POC Glucose (mg/dL) 160 H 128 H 121 H (70-110) mg/dL Calcium (8.4-10.2) mg/dL Magnesium (1.6-2.3) mg/dL Total Protein (6.3-8.2) g/dL Albumin (3.5-5.0) g/dL Arterial Blood Potassium (3.4-4.5) mmol/L Arterial Blood Glucose (75-99) mg/dL Crossmatch Assessment and Plan Assessment: Significant triple-vessel coronary artery disease. Status post coronary artery bypass grafting utilizing a ALMEIDA to the LAD, saphenous vein graft to the PDA, left radial artery as to the OM and ligation of left atrial appendage with AtriCure clip. Postoperative day #1 Former smoker Diabetes mellitus Hypertension Hypothyroidism History of seizures History of COVID-19 infection 3 Plan: The patient was seen and evaluated Chest x-ray, labs and medications reviewed Improved and on 3 L nasal cannula Titrate the FiO2 as tolerated Continue bronchodilators Increase use of the incentive spirometer Heparin for DVT prophylaxis We will continue to follow I have personally seen and examined the patient, performed the documentation and the assessment and plan as written. Number of minutes spent on the visit: 10.
[2022-11-30 13:09] LABS: Glucose,Whole Blood 132 mg/dL (70-110)
--- NOTE | 2022-11-30 13:34 | P.PN ---
Subjective Progress Note Date: 11/30/22 This is a 77-year-old gentleman with a past medical history significant for coronary artery disease documented on recent heart catheterization which he was diagnosed with severe triple-vessel CAD after an echocardiogram came in to be abnormal showing mild cardiomyopathy was evidence of foreign motion abno rmalities concerning for severe CAD as well as history of diabetes and hypertension and dyslipidemia and chronic kidney disease. We consulted to see the patient for cardiac evaluation after her open-heart surgery. Apparently he was admitted to the hospital yesterday and underwent CABG 3 with ALMEIDA to LAD and left radial to obtuse marginal branch and SVG to RCA. He was extubated yesterday. This is postoperative patient day #2. The patient overall seems to be stable from a cardiac vascular standpoint of view. He has been maintaining normal sinus mechanism. Currently he is on Cardizem IV for the radial graft and he is in process to be switched into Cardizem by mouth. Beside that he is on dual antiplatelet therapy and he is on intermediate intensity statin. Urine output has been within normal limits. The blood pressure has been normal and somewhat on the soft side. I did review his a blood work from the morning and that revealed stable hemoglobin with a creatinine of 1.68 and he is known to have stage III chronic kidney disease. The chest x-ray also was reviewed mild pulmonary vascular congestion The examination is remarkable for distant heart sounds with regular rhythm and diminished breathing sounds bilaterally. Assessment Severe triple-vessel CAD Status post CABG 3 as described above Chronic kidney disease Diabetes type 2 Hypertension Dyslipidemia Mild cardiomyopathy Plan Continue the current medical regimen Continue dual antiplatelet therapy and intermediate intensity statin Consider switch the patient from IV to oral Cardizem Continue monitor the kidney function and electrolytes and continue monitor the hemoglobin Follow-up on the chest x-ray on daily basis Follow-up with the patient Objective - Vital Signs Vital signs: Vital Signs Temp 98.1 F 11/30/22 12:00 Pulse 65 11/30/22 13:00 Resp 21 11/30/22 13:00 BP 132/66 11/30/22 12:30 Pulse Ox 95 11/30/22 13:00 FiO2 6 11/29/22 18:40 Intake & Output 11/29/22 11/30/22 11/30/22 18:59 06:59 18:59 Intake Total 609.283 7424.448 1028.289 Output Total 1387 1241 535 Balance -768.152 9828.448 493.289 Weight 81.5 kg 81.5 kg Intake: IV 822.0 2127.8 292 ACETAMINOPHEN IV (For NPO 1000 ) 1,000 mg In Empty Bag 1 bag @ 400 mls/hr IVPB Q6HR [facility] Rx#:[id number] Albumin Human 5% 500 ml @ 250 Per Protocol IVPB ONCE ONE Rx#:[id number] Amiodarone 360 mg In 166.5 33.3 Dextrose 5% in Water 200 ml @ 1 MG/MIN 33.333 mls/ hr IV .Q6H [facility] Rx#: [id number] CO/CI 100 80 20 Diltiazem 125 mg In 20 5 Sodium Chloride 0.9% 100 ml @ 5 MG/HR 5 mls/hr IV .Q24H [facility] Rx#:[id number] Lactated Ringers 1,000 ml 230 600 215 @ 20 mls/hr IV .Q24H [facility] Rx#:[id number] Magnesium Sulfate-D5w Pmx 200 1 gm In Dextrose/Water 1 100ml.bag @ 100 mls/hr IVPB Q1H [facility] Rx#: [id number] Nitroglycerin-D5w Pmx 50 7.5 1.5 mg In Dextrose/Water 1 250ml.bag @ 5 MCG/MIN 1.5 mls/hr IV .Q24H [facility] Rx#: [id number] Pressure bags 45 108 57 ceFAZolin 2 gm In Sodium 50 Chloride 0.9% 50 ml @ 100 mls/hr IVPB Q8H [facility] Rx#: [id number] Intake, IV Titration 16.640 295.648 28.289 Amount Amiodarone 450 mg In 160.003 Dextrose 5% in Water 250 ml @ 0.5 MG/MIN 16.667 mls/hr IV .Q15H [facility] Rx#: [id number] Diltiazem 125 mg In 70.5 Sodium Chloride 0.9% 100 ml @ 5 MG/HR 5 mls/hr IV .Q24H [facility] Rx#:[id number] Insulin Regular 100 unit 16.640 65.145 28.289 In Sodium Chloride 0.9% 100 ml @ Per Protocol IV .Q0M [facility] Rx#:[id number] Oral 708 Output: Chest Tube Drainage 314 541 290 Chest Tube Bilateral 133 161 130 Chest Tube Mediastinal 181 380 160 Urine 523 700 245 Estimated Blood Loss 550 Other: Voiding Method Indwelling Catheter Indwelling Catheter ABP, PAP, CO, CI - Last Documented Arterial Blood Pressure 120/48 Pulmonary Artery Pressure 34/6 Cardiac Output 5 Cardiac Index 2.4 - Labs CBC & Chem 7: 11/30/22 03:55 11/30/22 03:55 Labs: Abnormal Lab Results - Last 24 Hours (Table) 11/22/22 11/29/22 11/29/22 Range/Units 10:00 13:30 13:38 WBC (3.8-10.6) k/uL RBC 2.48 L (4.30-5.90) m/uL Hgb 7.7 L D (13.0-17.5) gm/dL Hct 23.0 L (39.0-53.0) % Neutrophils # (1.3-7.7) k/uL Lymphocytes # (1.0-4.8) k/uL PT (9.0-12.0) sec INR (<1.2) ABG pO2 (83-108) mmHg ABG O2 Saturation (94-97) % Sodium (137-145) mmol/L Chloride (98-107) mmol/L Carbon Dioxide (22-30) mmol/L BUN (9-20) mg/dL Creatinine (0.66-1.25) mg/dL Glucose (74-99) mg/dL POC Glucose (mg/dL) 150 H (70-110) mg/dL Calcium (8.4-10.2) mg/dL Magnesium (1.6-2.3) mg/dL Total Protein (6.3-8.2) g/dL Albumin (3.5-5.0) g/dL Crossmatch See Detail 11/29/22 11/29/22 11/29/22 Range/Units 13:38 13:38 14:03 WBC (3.8-10.6) k/uL RBC (4.30-5.90) m/uL Hgb (13.0-17.5) gm/dL Hct (39.0-53.0) % Neutrophils # (1.3-7.7) k/uL Lymphocytes # (1.0-4.8) k/uL PT 12.6 H (9.0-12.0) sec INR 1.2 H (<1.2) ABG pO2 192 H (83-108) mmHg ABG O2 Saturation 99.8 H (94-97) % Sodium (137-145) mmol/L Chloride 109 H (98-107) mmol/L Carbon Dioxide (22-30) mmol/L BUN 26 H (9-20) mg/dL Creatinine 1.62 H (0.66-1.25) mg/dL Glucose 135 H (74-99) mg/dL POC Glucose (mg/dL) (70-110) mg/dL Calcium 7.3 L (8.4-10.2) mg/dL Magnesium 1.4 L (1.6-2.3) mg/dL Total Protein 5.1 L (6.3-8.2) g/dL Albumin 3.4 L (3.5-5.0) g/dL Crossmatch 11/29/22 11/29/22 11/29/22 Range/Units 14:03 14:55 14:58 WBC (3.8-10.6) k/uL RBC 2.62 L (4.30-5.90) m/uL Hgb 8.2 L (13.0-17.5) gm/dL Hct 24.3 L (39.0-53.0) % Neutrophils # (1.3-7.7) k/uL Lymphocytes # (1.0-4.8) k/uL PT (9.0-12.0) sec INR (<1.2) ABG pO2 (83-108) mmHg ABG O2 Saturation (94-97) % Sodium (137-145) mmol/L Chloride (98-107) mmol/L Carbon Dioxide (22-30) mmol/L BUN (9-20) mg/dL Creatinine (0.66-1.25) mg/dL Glucose (74-99) mg/dL POC Glucose (mg/dL) 152 H 181 H (70-110) mg/dL Calcium (8.4-10.2) mg/dL Magnesium (1.6-2.3) mg/dL Total Protein (6.3-8.2) g/dL Albumin (3.5-5.0) g/dL Crossmatch 11/29/22 11/29/22 11/29/22 Range/Units 16:06 17:03 18:04 WBC (3.8-10.6) k/uL RBC (4.30-5.90) m/uL Hgb (13.0-17.5) gm/dL Hct (39.0-53.0) % Neutrophils # (1.3-7.7) k/uL Lymphocytes # (1.0-4.8) k/uL PT (9.0-12.0) sec INR (<1.2) ABG pO2 (83-108) mmHg ABG O2 Saturation (94-97) % Sodium (137-145) mmol/L Chloride (98-107) mmol/L Carbon Dioxide (22-30) mmol/L BUN (9-20) mg/dL Creatinine (0.66-1.25) mg/dL Glucose (74-99) mg/dL POC Glucose (mg/dL) 189 H 197 H 208 H (70-110) mg/dL Calcium (8.4-10.2) mg/dL Magnesium (1.6-2.3) mg/dL Total Protein (6.3-8.2) g/dL Albumin (3.5-5.0) g/dL Crossmatch 11/29/22 11/29/22 11/29/22 Range/Units 18:05 18:26 19:00 WBC 11.7 H (3.8-10.6) k/uL RBC 2.63 L (4.30-5.90) m/uL Hgb 8.1 L (13.0-17.5) gm/dL Hct 24.5 L (39.0-53.0) % Neutrophils # 9.4 H (1.3-7.7) k/uL Lymphocytes # (1.0-4.8) k/uL PT (9.0-12.0) sec INR (<1.2) ABG pO2 (83-108) mmHg ABG O2 Saturation 98.0 H (94-97) % Sodium (137-145) mmol/L Chloride (98-107) mmol/L Carbon Dioxide (22-30) mmol/L BUN (9-20) mg/dL Creatinine (0.66-1.25) mg/dL Glucose (74-99) mg/dL POC Glucose (mg/dL) 176 H (70-110) mg/dL Calcium (8.4-10.2) mg/dL Magnesium (1.6-2.3) mg/dL Total Protein (6.3-8.2) g/dL Albumin (3.5-5.0) g/dL Crossmatch 11/29/22 11/29/22 11/29/22 Range/Units 19:52 20:10 20:47 WBC (3.8-10.6) k/uL RBC 2.69 L (4.30-5.90) m/uL Hgb 8.5 L (13.0-17.5) gm/dL Hct 24.9 L (39.0-53.0) % Neutrophils # 8.6 H (1.3-7.7) k/uL Lymphocytes # (1.0-4.8) k/uL PT (9.0-12.0) sec INR (<1.2) ABG pO2 (83-108) mmHg ABG O2 Saturation (94-97) % Sodium (137-145) mmol/L Chloride (98-107) mmol/L Carbon Dioxide (22-30) mmol/L BUN (9-20) mg/dL Creatinine (0.66-1.25) mg/dL Glucose (74-99) mg/dL POC Glucose (mg/dL) 184 H 175 H (70-110) mg/dL Calcium (8.4-10.2) mg/dL Magnesium (1.6-2.3) mg/dL Total Protein (6.3-8.2) g/dL Albumin (3.5-5.0) g/dL Crossmatch 11/29/22 11/29/22 11/29/22 Range/Units 22:04 22:56 23:50 WBC (3.8-10.6) k/uL RBC (4.30-5.90) m/uL Hgb (13.0-17.5) gm/dL Hct (39.0-53.0) % Neutrophils # (1.3-7.7) k/uL Lymphocytes # (1.0-4.8) k/uL PT (9.0-12.0) sec INR (<1.2) ABG pO2 (83-108) mmHg ABG O2 Saturation (94-97) % Sodium (137-145) mmol/L Chloride (98-107) mmol/L Carbon Dioxide (22-30) mmol/L BUN (9-20) mg/dL Creatinine (0.66-1.25) mg/dL Glucose (74-99) mg/dL POC Glucose (mg/dL) 152 H 130 H 119 H (70-110) mg/dL Calcium (8.4-10.2) mg/dL Magnesium (1.6-2.3) mg/dL Total Protein (6.3-8.2) g/dL Albumin (3.5-5.0) g/dL Crossmatch 11/30/22 11/30/22 11/30/22 Range/Units 02:09 02:56 03:55 WBC (3.8-10.6) k/uL RBC 2.75 L (4.30-5.90) m/uL Hgb 8.3 L (13.0-17.5) gm/dL Hct 25.0 L (39.0-53.0) % Neutrophils # 8.5 H (1.3-7.7) k/uL Lymphocytes # 0.9 L (1.0-4.8) k/uL PT (9.0-12.0) sec INR (<1.2) ABG pO2 (83-108) mmHg ABG O2 Saturation (94-97) % Sodium (137-145) mmol/L Chloride (98-107) mmol/L Carbon Dioxide (22-30) mmol/L BUN (9-20) mg/dL Creatinine (0.66-1.25) mg/dL Glucose (74-99) mg/dL POC Glucose (mg/dL) 135 H 133 H (70-110) mg/dL Calcium (8.4-10.2) mg/dL Magnesium (1.6-2.3) mg/dL Total Protein (6.3-8.2) g/dL Albumin (3.5-5.0) g/dL Crossmatch 11/30/22 11/30/22 11/30/22 Range/Units 03:55 03:56 06:03 WBC (3.8-10.6) k/uL RBC (4.30-5.90) m/uL Hgb (13.0-17.5) gm/dL Hct (39.0-53.0) % Neutrophils # (1.3-7.7) k/uL Lymphocytes # (1.0-4.8) k/uL PT (9.0-12.0) sec INR (<1.2) ABG pO2 (83-108) mmHg ABG O2 Saturation (94-97) % Sodium 136 L (137-145) mmol/L Chloride (98-107) mmol/L Carbon Dioxide 21 L (22-30) mmol/L BUN 24 H (9-20) mg/dL Creatinine 1.68 H (0.66-1.25) mg/dL Glucose 112 H (74-99) mg/dL POC Glucose (mg/dL) 122 H 134 H (70-110) mg/dL Calcium 7.7 L (8.4-10.2) mg/dL Magnesium (1.6-2.3) mg/dL Total Protein 5.2 L (6.3-8.2) g/dL Albumin 3.4 L (3.5-5.0) g/dL Crossmatch 11/30/22 11/30/22 11/30/22 Range/Units 06:52 08:02 08:57 WBC (3.8-10.6) k/uL RBC (4.30-5.90) m/uL Hgb (13.0-17.5) gm/dL Hct (39.0-53.0) % Neutrophils # (1.3-7.7) k/uL Lymphocytes # (1.0-4.8) k/uL PT (9.0-12.0) sec INR (<1.2) ABG pO2 (83-108) mmHg ABG O2 Saturation (94-97) % Sodium (137-145) mmol/L Chloride (98-107) mmol/L Carbon Dioxide (22-30) mmol/L BUN (9-20) mg/dL Creatinine (0.66-1.25) mg/dL Glucose (74-99) mg/dL POC Glucose (mg/dL) 180 H 160 H 128 H (70-110) mg/dL Calcium (8.4-10.2) mg/dL Magnesium (1.6-2.3) mg/dL Total Protein (6.3-8.2) g/dL Albumin (3.5-5.0) g/dL Crossmatch 11/30/22 11/30/22 Range/Units 11:07 13:08 WBC (3.8-10.6) k/uL RBC (4.30-5.90) m/uL Hgb (13.0-17.5) gm/dL Hct (39.0-53.0) % Neutrophils # (1.3-7.7) k/uL Lymphocytes # (1.0-4.8) k/uL PT (9.0-12.0) sec INR (<1.2) ABG pO2 (83-108) mmHg ABG O2 Saturation (94-97) % Sodium (137-145) mmol/L Chloride (98-107) mmol/L Carbon Dioxide (22-30) mmol/L BUN (9-20) mg/dL Creatinine (0.66-1.25) mg/dL Glucose (74-99) mg/dL POC Glucose (mg/dL) 121 H 132 H (70-110) mg/dL Calcium (8.4-10.2) mg/dL Magnesium (1.6-2.3) mg/dL Total Protein (6.3-8.2) g/dL Albumin (3.5-5.0) g/dL Crossmatch
[2022-11-30 14:55] LABS: Glucose,Whole Blood 105 mg/dL (70-110)
[2022-11-30 16:23] LABS: Glucose,Whole Blood 155 mg/dL (70-110)
[2022-11-30 18:16] LABS: Glucose,Whole Blood 198 mg/dL (70-110)
--- NOTE | 2022-11-30 19:01 | P.PN ---
Subjective Progress Note Date: 11/30/22 (paddye charting seen at 0830) Patient is a 77-year-old male with hypertension, CKD, [id number]-gxpysnvan diabetes, and hypothyroidism admitted for off pump CABG 3 including ligation of the left atrial appendage. Patient seen and examined at bedside. Sitting in chair. Having a slight amount of chest pain. No shortness of breath. No nausea or vomiting. Vital signs reviewed General: nontoxic, no distress, appears at stated age Cardiovascular: S1S2 reg, no murmur, positive posterior tibial pulse bilateral, Lungs: CTA bilateral, no rhonchi, no rales , no accessory muscle use, mediastinal and chest tubes in place. Abdominal: soft, nontender to palpation, no guarding, no appreciable organomegaly Ext: no gross muscle atrophy, no edema, no contractures Neuro: CN II-XI grossly intact, no focal neuro deficits Psych: Alert, oriented, appropriate affect Assessment: A 77-year-old male with coronary artery disease status post off-pump triple vessel bypass on 11/29/22. Acute blood loss anemia, anticipated outcome of surgery. Diabetes mellitus type 2, [id number] Cardiomyopathy with ejection fraction 45-50% Dyslipidemia Hypertension Hypothyroidism Chronic kidney disease stage III Imaging: Chest X-ray is reviewed by myself demonstrates bilateral chest tubes with central catheter in place. Data Review: Laboratory analysis shows white blood cell count 10.1, hemoglobin 8.3, sodium 136, potassium 4.2, carbon dioxide 21, chloride 104, BUN 24, creatinine 1.68. Blood sugars reviewed and overnight they were 102 at midnight with a peak at 180 after breakfast. Plan: - blood sugars were closely monitor throughout the day with nursing. Insulin gtt freqeuntly adjusted. He did eat a good amount of Lunch. Will transition to levemir 12 untis at night, novolog 4 untis with meal and novolog scale. Follow BS. A1C was 7.8 pre-op - Agree with ferrous sulfate 325 mg daily. Check ferritin and iron studies due to degree of anemia. -creatinine is better than baseline. Will need daily basic metabolic profile to ensure stability well oral intake is down in the setting of open heart surgery. -Morning CBC to monitor anemia. Cardiothoracic no reviewed: Increase beta louis as tolerated, discontinue nitr o, continue amiodarone for A. fib prophylaxis with transition to oral. Transition calcium channel louis to oral for radial artery spasm prophylaxis. If an pulmonary no reviewed: Continues to require 3 L nasal cannula. If an cardiology note reviewed: Increase with transition to oral calcium channel louis. DVT prophylaxis: Heparin subcutaneous Thank you for allowing us to participate in the care of this pleasant patient. Do not hesitate to contact us with questions. Someone can be reached from the [facility] hospitalist group all hours of the day at [phone] or via perfect serve. Objective - Vital Signs Vital signs: Vital Signs Temp 98.0 F 11/30/22 16:00 Pulse 63 11/30/22 18:30 Resp 19 11/30/22 18:30 BP 132/66 11/30/22 12:30 Pulse Ox 93 L 11/30/22 18:30 FiO2 6 11/29/22 18:40 Intake & Output 11/29/22 11/30/22 11/30/22 18:59 06:59 18:59 Intake Total 654.090 8098.448 1764.621 Output Total 1387 1241 765 Balance -431.664 6895.448 999.621 Weight 81.5 kg 81.5 kg Intake: IV 822.0 2127.8 422 ACETAMINOPHEN IV (For NPO 1000 ) 1,000 mg In Empty Bag 1 bag @ 400 mls/hr IVPB Q6HR [facility] Rx#:[id number] Albumin Human 5% 500 ml @ 250 Per Protocol IVPB ONCE [facility] Rx#:[id number] Amiodarone 360 mg In 166.5 33.3 Dextrose 5% in Water 200 ml @ 1 MG/MIN 33.333 mls/ hr IV .Q6H [facility] Rx#: [id number] CO/CI 100 80 20 Diltiazem 125 mg In 20 5 Sodium Chloride 0.9% 100 ml @ 5 MG/HR 5 mls/hr IV .Q24H [facility] Rx#:[id number] Lactated Ringers 1,000 ml 230 600 315 @ 20 mls/hr IV .Q24H [facility] Rx#:[id number] Magnesium Sulfate-D5w Pmx 200 1 gm In Dextrose/Water 1 100ml.bag @ 100 mls/hr IVPB Q1H [facility] Rx#: [id number] Nitroglycerin-D5w Pmx 50 7.5 1.5 mg In Dextrose/Water 1 250ml.bag @ 5 MCG/MIN 1.5 mls/hr IV .Q24H [facility] Rx#: [id number] Pressure bags 45 108 87 ceFAZolin 2 gm In Sodium 50 Chloride 0.9% 50 ml @ 100 mls/hr IVPB Q8H [facility] Rx#: [id number] Intake, IV Titration 16.640 295.648 36.621 Amount Amiodarone 450 mg In 160.003 Dextrose 5% in Water 250 ml @ 0.5 MG/MIN 16.667 mls/hr IV .Q15H [facility] Rx#: [id number] Diltiazem 125 mg In 70.5 Sodium Chloride 0.9% 100 ml @ 5 MG/HR 5 mls/hr IV .Q24H [facility] Rx#:[id number] Insulin Regular 100 unit 16.640 65.145 36.621 In Sodium Chloride 0.9% 100 ml @ Per Protocol IV .Q0M [facility] Rx#:[id number] Oral 1306 Output: Chest Tube Drainage 314 541 420 Chest Tube Bilateral 133 161 200 Chest Tube Mediastinal 181 380 220 Urine 523 700 345 Estimated Blood Loss 550 Other: Voiding Method Indwelling Catheter Indwelling Catheter ABP, PAP, CO, CI - Last Documented Arterial Blood Pressure 133/50 Pulmonary Artery Pressure 34/6 Cardiac Output 5 Cardiac Index 2.4 - Labs CBC & Chem 7: 11/30/22 03:55 11/30/22 03:55 Labs: Abnormal Lab Results - Last 24 Hours (Table) 11/22/22 11/29/22 11/29/22 Range/Units 10:00 19:00 19:52 RBC (4.30-5.90) m/uL Hgb (13.0-17.5) gm/dL Hct (39.0-53.0) % Neutrophils # (1.3-7.7) k/uL Lymphocytes # (1.0-4.8) k/uL Sodium (137-145) mmol/L Carbon Dioxide (22-30) mmol/L BUN (9-20) mg/dL Creatinine (0.66-1.25) mg/dL Glucose (74-99) mg/dL POC Glucose (mg/dL) 176 H 184 H (70-110) mg/dL Calcium (8.4-10.2) mg/dL Total Protein (6.3-8.2) g/dL Albumin (3.5-5.0) g/dL Crossmatch See Detail 11/29/22 11/29/22 11/29/22 Range/Units 20:10 20:47 22:04 RBC 2.69 L (4.30-5.90) m/uL Hgb 8.5 L (13.0-17.5) gm/dL Hct 24.9 L (39.0-53.0) % Neutrophils # 8.6 H (1.3-7.7) k/uL Lymphocytes # (1.0-4.8) k/uL Sodium (137-145) mmol/L Carbon Dioxide (22-30) mmol/L BUN (9-20) mg/dL Creatinine (0.66-1.25) mg/dL Glucose (74-99) mg/dL POC Glucose (mg/dL) 175 H 152 H (70-110) mg/dL Calcium (8.4-10.2) mg/dL Total Protein (6.3-8.2) g/dL Albumin (3.5-5.0) g/dL Crossmatch 11/29/22 11/29/22 11/30/22 Range/Units 22:56 23:50 02:09 RBC (4.30-5.90) m/uL Hgb (13.0-17.5) gm/dL Hct (39.0-53.0) % Neutrophils # (1.3-7.7) k/uL Lymphocytes # (1.0-4.8) k/uL Sodium (137-145) mmol/L Carbon Dioxide (22-30) mmol/L BUN (9-20) mg/dL Creatinine (0.66-1.25) mg/dL Glucose (74-99) mg/dL POC Glucose (mg/dL) 130 H 119 H 135 H (70-110) mg/dL Calcium (8.4-10.2) mg/dL Total Protein (6.3-8.2) g/dL Albumin (3.5-5.0) g/dL Crossmatch 11/30/22 11/30/22 11/30/22 Range/Units 02:56 03:55 03:55 RBC 2.75 L (4.30-5.90) m/uL Hgb 8.3 L (13.0-17.5) gm/dL Hct 25.0 L (39.0-53.0) % Neutrophils # 8.5 H (1.3-7.7) k/uL Lymphocytes # 0.9 L (1.0-4.8) k/uL Sodium 136 L (137-145) mmol/L Carbon Dioxide 21 L (22-30) mmol/L BUN 24 H (9-20) mg/dL Creatinine 1.68 H (0.66-1.25) mg/dL Glucose 112 H (74-99) mg/dL POC Glucose (mg/dL) 133 H (70-110) mg/dL Calcium 7.7 L (8.4-10.2) mg/dL Total Protein 5.2 L (6.3-8.2) g/dL Albumin 3.4 L (3.5-5.0) g/dL Crossmatch 11/30/22 11/30/22 11/30/22 Range/Units 03:56 06:03 06:52 RBC (4.30-5.90) m/uL Hgb (13.0-17.5) gm/dL Hct (39.0-53.0) % Neutrophils # (1.3-7.7) k/uL Lymphocytes # (1.0-4.8) k/uL Sodium (137-145) mmol/L Carbon Dioxide (22-30) mmol/L BUN (9-20) mg/dL Creatinine (0.66-1.25) mg/dL Glucose (74-99) mg/dL POC Glucose (mg/dL) 122 H 134 H 180 H (70-110) mg/dL Calcium (8.4-10.2) mg/dL Total Protein (6.3-8.2) g/dL Albumin (3.5-5.0) g/dL Crossmatch 11/30/22 11/30/22 11/30/22 Range/Units 08:02 08:57 11:07 RBC (4.30-5.90) m/uL Hgb (13.0-17.5) gm/dL Hct (39.0-53.0) % Neutrophils # (1.3-7.7) k/uL Lymphocytes # (1.0-4.8) k/uL Sodium (137-145) mmol/L Carbon Dioxide (22-30) mmol/L BUN (9-20) mg/dL Creatinine (0.66-1.25) mg/dL Glucose (74-99) mg/dL POC Glucose (mg/dL) 160 H 128 H 121 H (70-110) mg/dL Calcium (8.4-10.2) mg/dL Total Protein (6.3-8.2) g/dL Albumin (3.5-5.0) g/dL Crossmatch 11/30/22 11/30/22 11/30/22 Range/Units 13:08 16:22 18:14 RBC (4.30-5.90) m/uL Hgb (13.0-17.5) gm/dL Hct (39.0-53.0) % Neutrophils # (1.3-7.7) k/uL Lymphocytes # (1.0-4.8) k/uL Sodium (137-145) mmol/L Carbon Dioxide (22-30) mmol/L BUN (9-20) mg/dL Creatinine (0.66-1.25) mg/dL Glucose (74-99) mg/dL POC Glucose (mg/dL) 132 H 155 H 198 H (70-110) mg/dL Calcium (8.4-10.2) mg/dL Total Protein (6.3-8.2) g/dL Albumin (3.5-5.0) g/dL Crossmatch
[2022-11-30 19:11] LABS: Glucose,Whole Blood 224 mg/dL (70-110)
[2022-11-30] MEDS ORDERED: INSULIN DETEMIR (LEVEMIR) 100 UNIT/ML SYR SQ SCH (20:00)
[2022-11-30 20:52] LABS: Glucose,Whole Blood 169 mg/dL (70-110)
[2022-11-30] MEDS: SENNOSIDES-DOCUSATE SODIUM 1 EACH TAB PO SCH (21:03)
[2022-11-30] MEDS: INSULIN ASPART (NovoLOG) 100 UNIT/ML VIAL SQ SCH (21:04)
[2022-12-01] MEDS: DILTIAZEM ORAL 30 MG TAB PO SCH ×3 (00:13→16:52)
[2022-12-01] MEDS: HEPARIN SODIUM,PORCINE/PF 5,000 UNIT/0.5 ML SYRINGE SQ SCH ×3 (00:13→16:52)
[2022-12-01] MEDS: HYDROcodone/APAP 5-325MG 1 EACH TAB PO PRN ×3 (05:04→20:21)
[2022-12-01 06:19] LABS: Basophils % (A) 0 %; Eosinophils % (A) 0 %; HCT 26.4 % (39.0-53.0); Lymphocytes # (A) 1.4 k/uL (1.0-4.8); Lymphocytes % (A) 9 %; MCV 94.2 fL (80.0-100.0); Mean Platelet Volume 9.6; Monocytes % (A) 6 %; Neutrophils # (A) 13.2 k/uL (1.3-7.7); Neutrophils % (A) 84 %; Platelet Count 228 k/uL (150-450); WBC 15.8 k/uL (3.8-10.6)
[2022-12-01 06:25] LABS: Ionized Calcium 4.8 mg/dL (4.5-5.3)
[2022-12-01 06:40] LABS: Glucose,Whole Blood 164 mg/dL (70-110)
[2022-12-01 06:44] LABS: Albumin 3.7 g/dL (3.5-5.0); Calcium 8.3 mg/dL (8.4-10.2); Potassium 5.2 mmol/L (3.5-5.1); Total Bilirubin 0.5 mg/dL (0.2-1.3); Total Protein 5.8 g/dL (6.3-8.2)
[2022-12-01] MEDS: INSULIN ASPART (NovoLOG) 100 UNIT/ML VIAL SQ SCH ×6 (06:51→20:32)
[2022-12-01] MEDS: PANTOPRAZOLE 40 MG TABLET PO SCH (06:51)
[2022-12-01] MEDS: LEVOTHYROXINE 50 MCG TAB PO SCH (06:51)
[2022-12-01] MEDS: FERROUS SULFATE 325 MG TAB PO SCH ×2 (06:51→16:52)
[2022-12-01] MEDS ORDERED: INSULIN ASPART (NovoLOG) 100 UNIT/ML VIAL SQ SCH (07:30)
[2022-12-01] MEDS: LACTATED RINGERS 1,000 ML IV SCH (07:51)
--- NOTE | 2022-12-01 07:57 | XR ---
EXAMINATION TYPE: XR chest 1V portable DATE OF EXAM: 12/01/2022 COMPARISON: 11/30/2022 HISTORY: Postop TECHNIQUE: Single frontal view of the chest is obtained. FINDINGS: Stable tiny left apical pneumothorax measuring less than 5%. Chest tube noted in position. Bilateral consolidation and small effusion. Postsurgical changes are seen. Mediastinal drain. Hasty-Joe catheter has been removed. IMPRESSION: 1. Postoperative change with bilateral atelectasis and small effusion. Less than 5% left apical pneum othorax.
--- NOTE | 2022-12-01 08:56 | P.PN ---
Subjective Progress Note Date: 12/01/22 Principal diagnosis: Coronary artery disease. Previous medical history of hypertension, hyperlipidemia, zsi-bbuqgjt-[id number] diabetes, previous tobacco dependence, remote history of pneumonia POD #2 off-pump coronary artery bypass graft 3 with left internal mammary artery to the left anterior descending artery, left radial artery graft to the obtuse marginal artery, reverse saphenous vein graft to the posterior descending artery, endovascular vein harvest from the left thigh, left endovascular radial artery harvest and ligation of left atrial appendage with a 35 mm Atricure clip The patient was seen and examined sitting up in a recliner in the ICU in no acute distress eating breakfast. Does complain of post surgical pain which is controlled on current medication regimen, denies shortness of breath. Remains in sinus rhythm, hemodynamically stable. Currently on 4 L nasal cannula with oxygen saturation in the low 90s, able to achieve 1000 mL on incentive spirom etry. Labs and CXR reviewed. Right internal jugular cordis, mediastinal/left/right chest tubes, arterial line all present. No other new concerns. Objective - Vital Signs Vital signs: Vital Signs Temp 97.7 F 12/01/22 08:00 Pulse 68 12/01/22 08:00 Resp 8 L 12/01/22 08:00 BP 133/59 12/01/22 08:00 Pulse Ox 91 L 12/01/22 08:00 FiO2 6 11/29/22 18:40 Intake & Output 11/30/22 12/01/22 12/01/22 18:59 06:59 18:59 Intake Total 1764.621 612 202 Output Total 765 500 45 Balance 999.621 112 157 Weight 81.5 kg 82.7 kg Intake: IV 422 312 52 CO/CI 20 Lactated Ringers 1,000 ml 315 240 40 @ 20 mls/hr IV .Q24H JOY Rx#:[id number] Pressure bags 87 72 12 Intake, IV Titration 36.621 Amount Insulin Regular 100 unit 36.621 In Sodium Chloride 0.9% 100 ml @ Per Protocol IV .Q0M JOY Rx#:[id number] Oral 1306 300 150 Output: Chest Tube Drainage 420 120 0 Chest Tube Bilateral 200 60 0 Chest Tube Mediastinal 220 60 0 Urine 345 380 45 Other: Voiding Method Indwelling Catheter Indwelling Catheter ABP, PAP, CO, CI - Last Documented Arterial Blood Pressure 111/45 Pulmonary Artery Pressure 34/6 Cardiac Output 5 Cardiac Index 2.4 - Exam CONSTITUTIONAL: Appears comfortable, cooperative, no acute distress RESPIRATORY: Lungs sounds diminished bilaterally. Respirations even, nonlabored. Currently on 4 LPM NC with oxygen saturation 92%. Able to achieve 1000 mL on incentive spirometry. Weak cough. CARDIOVASCULAR: S1, S2 present. Regular rate and rhythm, sinus rhythm on telemetry. Sternum stable. Palpable peripheral pulses bilaterally. Generalized edema present. No calf pain or tenderness noted. Heart hugger in place with patient demonstrating appropriate use. Antiembolism stockings, SCDs present. GASTROINTESTINAL: Abdomen soft, nontender, nondistended. Active bowel sounds present 4 quadrants. Tolerating clear liquids. Denies flatus GENITOURINARY: Fu present draining clear, yellow urine. Output overnight 30-40mL per hour, 725 mL in the last 24 hours INTEGUMENTARY: Skin is warm and dry with evidence of good perfusion. Anterior chest incision well approximated and covered with dry intact dressing. Left lower extremity EVH site, left radial artery harvest site well approximated without redness or drainage. NEUROLOGIC: Cranial nerves II through XII intact MUSKULOSKELETAL: Able to move all extremities, strength equal bilaterally, gait normal PSYCHIATRIC: Alert and oriented to person place and time, appropriate affect, intact judgment and insight INVASIVE LINES AND TUBES: Mediastinal/left/right pleural chest tubes present and connected to wall suction, no air leaks present. Mediastinal tube with 50 mL serosanguineous drainage overnight, 200 mL the last 24 hours. Left/right pleural chest tubes with 60 mL serosanguineous drainage overnight, 250 mL in the last 24 hours. Right internal jugular Cordis, right radial arterial line present - Allied health notes Allied health notes reviewed: nursing - Labs CBC & Chem 7: 12/01/22 06:00 12/01/22 06:00 Labs: Abnormal Lab Results - Last 24 Hours (Table) 11/30/22 11/30/22 11/30/22 Range/Units 08:57 11:07 13:08 WBC (3.8-10.6) k/uL RBC (4.30-5.90) m/uL Hgb (13.0-17.5) gm/dL Hct (39.0-53.0) % Neutrophils # (1.3-7.7) k/uL Sodium (137-145) mmol/L Potassium (3.5-5.1) mmol/L Carbon Dioxide (22-30) mmol/L BUN (9-20) mg/dL Creatinine (0.66-1.25) mg/dL Glucose (74-99) mg/dL POC Glucose (mg/dL) 128 H 121 H 132 H (70-110) mg/dL Calcium (8.4-10.2) mg/dL Total Protein (6.3-8.2) g/dL 11/30/22 11/30/22 11/30/22 Range/Units 16:22 18:14 19:09 WBC (3.8-10.6) k/uL RBC (4.30-5.90) m/uL Hgb (13.0-17.5) gm/dL Hct (39.0-53.0) % Neutrophils # (1.3-7.7) k/uL Sodium (137-145) mmol/L Potassium (3.5-5.1) mmol/L Carbon Dioxide (22-30) mmol/L BUN (9-20) mg/dL Creatinine (0.66-1.25) mg/dL Glucose (74-99) mg/dL POC Glucose (mg/dL) 155 H 198 H 224 H (70-110) mg/dL Calcium (8.4-10.2) mg/dL Total Protein (6.3-8.2) g/dL 11/30/22 12/01/22 12/01/22 Range/Units 20:51 06:00 06:00 WBC 15.8 H (3.8-10.6) k/uL RBC 2.80 L (4.30-5.90) m/uL Hgb 9.0 L (13.0-17.5) gm/dL Hct 26.4 L (39.0-53.0) % Neutrophils # 13.2 H (1.3-7.7) k/uL Sodium 134 L (137-145) mmol/L Potassium 5.2 H (3.5-5.1) mmol/L Carbon Dioxide 20 L (22-30) mmol/L BUN 31 H (9-20) mg/dL Creatinine 2.09 H (0.66-1.25) mg/dL Glucose 178 H (74-99) mg/dL POC Glucose (mg/dL) 169 H (70-110) mg/dL Calcium 8.3 L (8.4-10.2) mg/dL Total Protein 5.8 L (6.3-8.2) g/dL 12/01/22 Range/Units 06:39 WBC (3.8-10.6) k/uL RBC (4.30-5.90) m/uL Hgb (13.0-17.5) gm/dL Hct (39.0-53.0) % Neutrophils # (1.3-7.7) k/uL Sodium (137-145) mmol/L Potassium (3.5-5.1) mmol/L Carbon Dioxide (22-30) mmol/L BUN (9-20) mg/dL Creatinine (0.66-1.25) mg/dL Glucose (74-99) mg/dL POC Glucose (mg/dL) 164 H (70-110) mg/dL Calcium (8.4-10.2) mg/dL Total Protein (6.3-8.2) g/dL - Imaging and Cardiology Chest x-ray: report reviewed, image reviewed Assessment and Plan Assessment: 1. Coronary artery disease, status post 3V off pump cabg 2. Mildly reduced LV function, EF 45-50% 3. History of hypertension 4. Hyperlipidemia, treated, chol 177, LDL 91, trig 257 5. Pfa-tjomnew-ivdqnvfev diabetes, hgbAIc 7.8% 6. Previous tobacco dependence, preoperative FEV1 83% 7. Remote history of pneumonia 8. Hypothyroid 9. Chronic kidney disease stage III 10. Prior history of Covid, vaccinated and boosted 11. Family history of CAD Plan: 1. Continue to maximize medical therapy with ASA, plavix, statin, beta louis. Will increase beta louis as tolerated 2. Continue CCB for radial artery spasm prophylaxis 3. Continue amio for afib prophylaxis 4. Wean oxygen as tolerated, encourage incentive spirometer 10 times every hour while awake. Bronchodilators per pulmonology 5. Increase activity as tolerated. PT/OT/cardiac rehab following 6. Will monitor labs, CXR. Electrolyte replacement per protocol. Will give IV lasix 7. GI/DVT prophylaxis 8. Pain control per current medication regimen. No Toradol due to chronic kidney disease 9. Insulin management per internal medicine 10. Discontinue Cordis, arterial line 11. Will discontinue chest tubes 12. Discontinue fu, may bladder scan and straight cath for greater then 300 mL residual 13. Daily weights, strict accurate intake and output 14. Will place transfer orders for 3 S. cardiac stepdown unit, may transfer when bed available 15. More recommendations to follow
[2022-12-01] MEDS ORDERED: INSULIN DETEMIR (LEVEMIR) 100 UNIT/ML SYR SQ ONE (09:00)
[2022-12-01] MEDS: IPRATROPIUM 0.5 MG/2.5 ML NEBU INHALATION SCH ×4 (09:30→20:44)
[2022-12-01] MEDS: ALBUTEROL NEBULIZED 2.5 MG/3 ML INHALATION SCH ×4 (09:30→20:44)
[2022-12-01] MEDS ORDERED: FUROSEMIDE 10 MG/ML 2 ML VIAL IV ONE (10:15)
[2022-12-01 10:19] LABS: % Iron Saturation 5.86 (15.00-50.00)
--- NOTE | 2022-12-01 10:32 | P.PN ---
Subjective Progress Note Date: 12/01/22 This is a 77-year-old gentleman with a past medical history significant for coronary artery disease documented on recent heart catheterization which he was diagnosed with severe triple-vessel CAD after an echocardiogram came in to be abnormal showing mild cardiomyopathy was evidence of foreign motion abno rmalities concerning for severe CAD as well as history of diabetes and hypertension and dyslipidemia and chronic kidney disease. We consulted to see the patient for cardiac evaluation after her open-heart surgery. Apparently he was admitted to the hospital yesterday and underwent CABG 3 with ALMEIDA to LAD and left radial to obtuse marginal branch and SVG to RCA. He was extubated yesterday. This is postoperative patient day #2. The patient overall seems to be stable from a cardiac vascular standpoint of view. He has been maintaining normal sinus mechanism. Currently he is on Cardizem IV for the radial graft and he is in process to be switched into Cardizem by mouth. Beside that he is on dual antiplatelet therapy and he is on intermediate intensity statin. Urine output has been within normal limits. The blood pressure has been normal and somewhat on the soft side. I did review his a blood work from the morning and that revealed stable hemoglobin with a creatinine of 1.68 and he is known to have stage III chronic kidney disease. The chest x-ray also was reviewed mild pulmonary vascular congestion December 01 The patient was seen and evaluated this morning. Overall he is stable and has been maintaining normal sinus mechanism. Urine output is stable. Hemoglobin is stable. The chest x-ray showed small pleural effusion and he is in process of getting a dose of Lasix. His kidney function is a slightly worse but he does have chronic kidney disease. The examination is remarkable for distant heart sounds with regular rhythm and diminished breathing sounds bilaterally. Assessment Severe triple-vessel CAD Status post CABG 3 as described above Chronic kidney disease Diabetes type 2 Hypertension Dyslipidemia Mild cardiomyopathy Plan Continue the current medical regimen Continue dual antiplatelet therapy and intermediate intensity statin Continue monitor the kidney function and electrolytes and continue monitor the hemoglobin Follow-up on the chest x-ray on daily basis Follow-up with the patient Objective - Vital Signs Vital signs: Vital Signs Temp 97.7 F 12/01/22 08:00 Pulse 61 12/01/22 09:42 Resp 10 L 12/01/22 09:00 BP 133/59 12/01/22 08:00 Pulse Ox 93 L 12/01/22 09:31 FiO2 6 11/29/22 18:40 Intake & Output 11/30/22 12/01/22 12/01/22 18:59 06:59 18:59 Intake Total 1764.621 612 202 Output Total 765 500 45 Balance 999.621 112 157 Weight 81.5 kg 82.7 kg Intake: IV 422 312 52 CO/CI 20 Lactated Ringers 1,000 ml 315 240 40 @ 20 mls/hr IV .Q24H JOY Rx#:[id number] Pressure bags 87 72 12 Intake, IV Titration 36.621 Amount Insulin Regular 100 unit 36.621 In Sodium Chloride 0.9% 100 ml @ Per Protocol IV .Q0M JOY Rx#:[id number] Oral 1306 300 150 Output: Chest Tube Drainage 420 120 0 Chest Tube Bilateral 200 60 0 Chest Tube Mediastinal 220 60 0 Urine 345 380 45 Other: Voiding Method Indwelling Catheter Indwelling Catheter ABP, PAP, CO, CI - Last Documented Arterial Blood Pressure 103/37 Pulmonary Artery Pressure 34/6 Cardiac Output 5 Cardiac Index 2.4 - Labs CBC & Chem 7: 12/01/22 06:00 12/01/22 06:00 Labs: Abnormal Lab Results - Last 24 Hours (Table) 11/30/22 11/30/22 11/30/22 Range/Units 11:07 13:08 16:22 WBC (3.8-10.6) k/uL RBC (4.30-5.90) m/uL Hgb (13.0-17.5) gm/dL Hct (39.0-53.0) % Neutrophils # (1.3-7.7) k/uL Sodium (137-145) mmol/L Potassium (3.5-5.1) mmol/L Carbon Dioxide (22-30) mmol/L BUN (9-20) mg/dL Creatinine (0.66-1.25) mg/dL Glucose (74-99) mg/dL POC Glucose (mg/dL) 121 H 132 H 155 H (70-110) mg/dL Calcium (8.4-10.2) mg/dL Iron (65-175) ug/dL TIBC (228-460) ug/dL % Saturation (15.00-50.00) Transferrin (204.0-354.0) mg/dL Total Protein (6.3-8.2) g/dL 11/30/22 11/30/22 11/30/22 Range/Units 18:14 19:09 20:51 WBC (3.8-10.6) k/uL RBC (4.30-5.90) m/uL Hgb (13.0-17.5) gm/dL Hct (39.0-53.0) % Neutrophils # (1.3-7.7) k/uL Sodium (137-145) mmol/L Potassium (3.5-5.1) mmol/L Carbon Dioxide (22-30) mmol/L BUN (9-20) mg/dL Creatinine (0.66-1.25) mg/dL Glucose (74-99) mg/dL POC Glucose (mg/dL) 198 H 224 H 169 H (70-110) mg/dL Calcium (8.4-10.2) mg/dL Iron (65-175) ug/dL TIBC (228-460) ug/dL % Saturation (15.00-50.00) Transferrin (204.0-354.0) mg/dL Total Protein (6.3-8.2) g/dL 12/01/22 12/01/22 12/01/22 Range/Units 06:00 06:00 06:39 WBC 15.8 H (3.8-10.6) k/uL RBC 2.80 L (4.30-5.90) m/uL Hgb 9.0 L (13.0-17.5) gm/dL Hct 26.4 L (39.0-53.0) % Neutrophils # 13.2 H (1.3-7.7) k/uL Sodium 134 L (137-145) mmol/L Potassium 5.2 H (3.5-5.1) mmol/L Carbon Dioxide 20 L (22-30) mmol/L BUN 31 H (9-20) mg/dL Creatinine 2.09 H (0.66-1.25) mg/dL Glucose 178 H (74-99) mg/dL POC Glucose (mg/dL) 164 H (70-110) mg/dL Calcium 8.3 L (8.4-10.2) mg/dL Iron 13 L (65-175) ug/dL TIBC 225 L (228-460) ug/dL % Saturation 5.86 L (15.00-50.00) Transferrin 161.0 L (204.0-354.0) mg/dL Total Protein 5.8 L (6.3-8.2) g/dL
[2022-12-01] MEDS: METOPROLOL TARTRATE 12.5 MG TAB PO SCH (10:50)
[2022-12-01] MEDS: ASCORBIC ACID 500 MG TAB PO SCH ×2 (10:50→10:51)
[2022-12-01] MEDS: ASPIRIN 325 MG TAB PO SCH (10:50)
[2022-12-01] MEDS: CLOPIDOGREL 75 MG TAB PO SCH (10:51)
[2022-12-01] MEDS: AMIODARONE 200 MG TAB PO SCH ×2 (10:51→20:21)
[2022-12-01] MEDS: ZINC SULFATE 220 MG CAP PO SCH (10:51)
[2022-12-01] MEDS: ATORVASTATIN 40 MG TAB PO SCH (10:51)
[2022-12-01] MEDS: CHOLECALCIFEROL 25 MCG (1000 IU) TABLET PO SCH (11:01)
[2022-12-01 11:11] LABS: Glucose,Whole Blood 192 mg/dL (70-110)
--- NOTE | 2022-12-01 11:20 | P.PN ---
Subjective Progress Note Date: 12/01/22 This is a 77-year-old male patient with history hypertension, chronic kidney disease, diabetes mellitus, hypothyroidism, CoVID infection 3 and previous chronic tobacco dependence. He also has cardiomyopathy with ejection fraction 40-45%. Recent cardiac catheterization revealed significant coronary artery disease including 90% LAD, 99% circumflex, 99% mid RCA. He was recommended coronary artery bypass grafting. He is brought in today electively with Dr. Gomez and had undergone a off-pump coronary revascularization 3 utilizing a ALMEIDA to the LAD, saphenous vein graft to the PDA, left radial artery to the OM. He is seen in the intensive care unit. Currently sedated on mechanical ventilator and assist control mode with for a rate of 14, tidal I'm 600, FiO2 80% and a PEEP of 5. Blood gases revealed a pO2 of 253, pCO2 36, pH 7.38 that was on 100% FiO2. He is receiving lactated Ringer's at 50 MLS per hour. Insulin drip at 1.5 units per hour. Amiodarone drip at 1 mg/m. Nitroglycerin drip at 5 mcg/m. Cardizem drip at 5 mg per hour. Propofol at 45 mcg/kg/m. Cardiac output 5.9. Cardiac index 2.8. PA pressures 13/16. CVP 10. Chest x- ray reveals postoperative changes with a left lower lobe consolidation. Favoring postoperative atelectasis with a tiny pleural effusion versus inf iltrate. Mediastinal, right/left pleural chest tubes in place. White count 8.2. Hemoglobin 7.7. Platelets 164. INR 1.2. Sodium 141. Potassium 3.7. Bicarb 22. BUN 26. Creatinine 1.62. Glucose 135. AST 20. ALT 20. Total protein 5.1. Albumin 3.4. He's been initiated on bronchodilators. Heparin for DVT prophylaxis. The patient is seen today 11/30/2022 in follow-up in the intensive care unit. He is currently sitting up in a chair at the bedside. Awake and alert in no acute distress. He is maintaining good O2 saturations in the 90s on 3 L/m per nasal cannula. His lactated Ringer's at 25 ML's per hour. Insulin drip at 5 units per hour. Chest x-ray shows a trace left apical pneumothorax. Bilateral and mediastinal chest tubes remain in place. Right IJ [place] catheter in place. Mild cardiomegaly. Increasing interstitial changes. Some mild pulmonary vascular congestion. Atelectasis. Encouraged to continue working with the incentive spirometer. White count 10.1. Hemoglobin 8.3. Platelets 201. Sodium 136. Potassium 4.2. Bicarb 21. BUN 24. Creatinine 1.68. Glucose 112. Cardiac output 5.0. Cardiac index 2.4. PA pressure 27/6. Hemodynamically stable. Maintaining sinus rhythm. Since seen today 12/01/2022 in follow-up in the intensive care unit. He is awake and alert in no acute distress. Sitting up in a chair at the bedside. He is maintaining O2 saturations in the 90s on 4 L/m per nasal cannula. Lactated Ringer's at 20 ML's per hour. He remains on bronchodilators. Heparin for DVT prophylaxis. Chest x-ray showing some bilateral atelectasis and small effusions. Less than 5% left apical pneumothorax. White count 15.8. Hemoglobin 9.0. Sodium 134. Potassium 5.2. Bicarb 20. BUN 31. Creatinine 2.09. Glucose 178. Right internal jugular Cordis, left and right pleural chest tubes, mediastinal chest tubes present. Right radial arterial line in place. Objective - Vital Signs Vital signs: Vital Signs Temp 97.7 F 12/01/22 08:00 Pulse 79 12/01/22 11:00 Resp 8 L 12/01/22 11:00 BP 154/61 12/01/22 11:00 Pulse Ox 95 12/01/22 10:00 FiO2 6 11/29/22 18:40 Intake & Output 11/30/22 12/01/22 12/01/22 18:59 06:59 18:59 Intake Total 1764.621 612 398 Output Total 765 500 130 Balance 999.621 112 268 Weight 81.5 kg 82.7 kg Intake: IV 422 312 130 CO/CI 20 Lactated Ringers 1,000 ml 315 240 100 @ 20 mls/hr IV .Q24H JOY Rx#:[id number] Pressure bags 87 72 30 Intake, IV Titration 36.621 Amount Insulin Regular 100 unit 36.621 In Sodium Chloride 0.9% 100 ml @ Per Protocol IV .Q0M JOY Rx#:[id number] Oral 1306 300 268 Output: Chest Tube Drainage 420 120 0 Chest Tube Bilateral 200 60 0 Chest Tube Mediastinal 220 60 0 Urine 345 380 130 Other: Voiding Method Indwelling Catheter Indwelling Catheter ABP, PAP, CO, CI - Last Documented Arterial Blood Pressure 159/56 Pulmonary Artery Pressure 34/6 Cardiac Output 5 Cardiac Index 2.4 - Exam GENERAL EXAM: Alert, very pleasant 77-year-old male patient, in a chair, on 4 L nasal cannula, comfortable in no apparent distress. HEAD: Normocephalic. EYES: Brisk reaction of pupils, equal size. NOSE: Clear with pink turbinates. THROAT: No erythema or exudates. NECK: No masses, no JVD. Right IJ Cordis in place. CHEST: Sternal dressing dry and intact. Mediastinal, right and left pleural chest tubes in place. LUNGS: Equal air entry with crackles in the left base. CVS: S1 and S2 normal with no audible murmur, regular rhythm. ABDOMEN: No hepatosplenomegaly, hypoactive bowel sounds, no guarding or rigi dity. SPINE: No scoliosis or deformity SKIN: No rashes CENTRAL NERVOUS SYSTEM: Sedated, tone is normal in all 4 extremities. EXTREMITIES: Rayray wrap to bilateral lower extremities. Right radial arterial line in place. There is trace peripheral edema. Peripheral pulses are intact. - Labs CBC & Chem 7: 12/01/22 06:00 12/01/22 06:00 Labs: Abnormal Lab Results - Last 24 Hours (Table) 11/30/22 11/30/22 11/30/22 Range/Units 13:08 16:22 18:14 WBC (3.8-10.6) k/uL RBC (4.30-5.90) m/uL Hgb (13.0-17.5) gm/dL Hct (39.0-53.0) % Neutrophils # (1.3-7.7) k/uL Sodium (137-145) mmol/L Potassium (3.5-5.1) mmol/L Carbon Dioxide (22-30) mmol/L BUN (9-20) mg/dL Creatinine (0.66-1.25) mg/dL Glucose (74-99) mg/dL POC Glucose (mg/dL) 132 H 155 H 198 H (70-110) mg/dL Calcium (8.4-10.2) mg/dL Iron (65-175) ug/dL TIBC (228-460) ug/dL % Saturation (15.00-50.00) Transferrin (204.0-354.0) mg/dL Total Protein (6.3-8.2) g/dL 11/30/22 11/30/22 12/01/22 Range/Units 19:09 20:51 06:00 WBC 15.8 H (3.8-10.6) k/uL RBC 2.80 L (4.30-5.90) m/uL Hgb 9.0 L (13.0-17.5) gm/dL Hct 26.4 L (39.0-53.0) % Neutrophils # 13.2 H (1.3-7.7) k/uL Sodium (137-145) mmol/L Potassium (3.5-5.1) mmol/L Carbon Dioxide (22-30) mmol/L BUN (9-20) mg/dL Creatinine (0.66-1.25) mg/dL Glucose (74-99) mg/dL POC Glucose (mg/dL) 224 H 169 H (70-110) mg/dL Calcium (8.4-10.2) mg/dL Iron (65-175) ug/dL TIBC (228-460) ug/dL % Saturation (15.00-50.00) Transferrin (204.0-354.0) mg/dL Total Protein (6.3-8.2) g/dL 12/01/22 12/01/22 12/01/22 Range/Units 06:00 06:39 11:10 WBC (3.8-10.6) k/uL RBC (4.30-5.90) m/uL Hgb (13.0-17.5) gm/dL Hct (39.0-53.0) % Neutrophils # (1.3-7.7) k/uL Sodium 134 L (137-145) mmol/L Potassium 5.2 H (3.5-5.1) mmol/L Carbon Dioxide 20 L (22-30) mmol/L BUN 31 H (9-20) mg/dL Creatinine 2.09 H (0.66-1.25) mg/dL Glucose 178 H (74-99) mg/dL POC Glucose (mg/dL) 164 H 192 H (70-110) mg/dL Calcium 8.3 L (8.4-10.2) mg/dL Iron 13 L (65-175) ug/dL TIBC 225 L (228-460) ug/dL % Saturation 5.86 L (15.00-50.00) Transferrin 161.0 L (204.0-354.0) mg/dL Total Protein 5.8 L (6.3-8.2) g/dL Assessment and Plan Assessment: Significant triple-vessel coronary artery disease. Status post coronary artery bypass grafting utilizing a ALMEIDA to the LAD, saphenous vein graft to the PDA, left radial artery as to the OM and ligation of left atrial appendage with AtriCure clip. Postoperative day #2 Former smoker Diabetes mellitus Hypertension Hypothyroidism History of seizures History of COVID-19 infection 3 Plan: The patient was seen and evaluated Chest x-ray, labs and medications reviewed Titrate the FiO2 as tolerated Increase his activity as tolerated Continue bronchodilators Continue the incentive spirometer Heparin for DVT prophylaxis We will continue to follow I have personally seen and examined the patient, performed the documentation and the assessment and plan as written. Number of minutes spent on the visit: 10.
[2022-12-01] MEDS: SODIUM FERRIC GLUCONAT-SUCROSE 125 MG in SODIUM CHLORIDE 0.9% 100 ML IVPB SCH (12:15)
[2022-12-01] MEDS ORDERED: METOPROLOL TARTRATE 12.5 MG TAB PO STA (12:46)
--- NOTE | 2022-12-01 14:26 | P.PN ---
Subjective Progress Note Date: 12/01/22 (delayed charting seen at 0820) Patient is a 77-year-old male with hypertension, CKD, cao-yolxfdw-jrqegmemy diabetes, and hypothyroidism admitted for off pump CABG 3 including ligation of the left atrial appendage. Patient seen and examined sitting in chair. Pain is well controlled, no chest pain, +SOB, No nausea, eating okay. Vital signs reviewed General: nontoxic, no distress, appears at stated age Cardiovascular: S1S2 reg, no murmur, positive posterior tibial pulse bilateral, Lungs: Decreased bs bilateral, no rhonchi, no rales , no accessory muscle use Abdominal: soft, nontender to palpation, no guarding, no appreciable organomegaly Ext: no gross muscle atrophy, no edema, no contractures Neuro: CN II-XI grossly intact, no focal neuro deficits Psych: Alert, oriented, appropriate affect Assessment: A 77-year-old male with coronary artery disease status post off-pump triple vessel bypass on 11/29/22. Acute blood loss anemia, anticipated outcome of surgery. Diabetes mellitus type 2, trc-pxxohbq-nsncqhjne Cardiomyopathy with ejection fraction 45-50% Dyslipidemia Hypertension Hypothyroidism Chronic kidney disease stage III Imaging: Chest X-ray is reviewed by myself demonstrates bilateral chest tubes with central catheter in place. Data Review: Laboratory analysis shows white blood cell count 15.8, Anemia 9, Sodium 134, potassium 5.2, BUN 31, Cr 2.09 Blood sugars reviewed AM fasting was 164, and Lunch was 192 Plan: - He had elevated blood sugars yesterday. AM fasting was 178 this morning. Give Levemir 5 units not, increase night time levemir to 16 units, increase Scheduled novoolog to 6 units with meals, Continue with sliding scale insulin - [facility] check Jardiance as patient should not go back on Metformin at discharge due to CKD. -- spoke with pharmacy and he has a $500 deductible to meet but would be covered after that - Patient with low iron sat post op will order IV iron X 3 doses. -creatinine is better than baseline. Continue daily basic metabolic profile to ensure stability well oral intake is down in the setting of open heart surgery. -Daily CBC to monitor anemia. Until increasing - Cardiothoracic no reviewed: Maximize therapy. - If an pulmonary no reviewed: No new changes - If an cardiology note reviewed: No new changes. DVT prophylaxis: Heparin subcutaneous Thank you for allowing us to participate in the care of this pleasant patient. Do not hesitate to contact us with questions. Someone can be reached from the [facility] [place] hospitalist group all hours of the day at [phone] or via perfect serve. Objective - Vital Signs Vital signs: Vital Signs Temp 97.7 F 12/01/22 08:00 Pulse 79 12/01/22 11:00 Resp 8 L 12/01/22 11:00 BP 154/61 12/01/22 11:00 Pulse Ox 95 12/01/22 10:00 FiO2 6 11/29/22 18:40 Intake & Output 11/30/22 12/01/22 12/01/22 18:59 06:59 18:59 Intake Total 1764.621 612 542 Output Total 765 500 380 Balance 999.621 112 162 Weight 81.5 kg 82.7 kg Intake: IV 422 312 156 CO/CI 20 Lactated Ringers 1,000 ml 315 240 120 @ 20 mls/hr IV .Q24H [facility] Rx#:[id number] Pressure bags 87 72 36 Intake, IV Titration 36.621 Amount Insulin Regular 100 unit 36.621 In Sodium Chloride 0.9% 100 ml @ Per Protocol IV .Q0M [facility] Rx#:[id number] Oral 1306 300 386 Output: Chest Tube Drainage 420 120 0 Chest Tube Bilateral 200 60 0 Chest Tube Mediastinal 220 60 0 Urine 345 380 380 Other: Voiding Method Indwelling Catheter Indwelling Catheter ABP, PAP, CO, CI - Last Documented Arterial Blood Pressure 159/56 Pulmonary Artery Pressure 34/6 Cardiac Output 5 Cardiac Index 2.4 - Labs CBC & Chem 7: 12/01/22 06:00 12/01/22 06:00 Labs: Abnormal Lab Results - Last 24 Hours (Table) 11/30/22 11/30/22 11/30/22 Range/Units 13:08 16:22 18:14 WBC (3.8-10.6) k/uL RBC (4.30-5.90) m/uL Hgb (13.0-17.5) gm/dL Hct (39.0-53.0) % Neutrophils # (1.3-7.7) k/uL Sodium (137-145) mmol/L Potassium (3.5-5.1) mmol/L Carbon Dioxide (22-30) mmol/L BUN (9-20) mg/dL Creatinine (0.66-1.25) mg/dL Glucose (74-99) mg/dL POC Glucose (mg/dL) 132 H 155 H 198 H (70-110) mg/dL Calcium (8.4-10.2) mg/dL Iron (65-175) ug/dL TIBC (228-460) ug/dL % Saturation (15.00-50.00) Transferrin (204.0-354.0) mg/dL Total Protein (6.3-8.2) g/dL 11/30/22 11/30/22 12/01/22 Range/Units 19:09 20:51 06:00 WBC 15.8 H (3.8-10.6) k/uL RBC 2.80 L (4.30-5.90) m/uL Hgb 9.0 L (13.0-17.5) gm/dL Hct 26.4 L (39.0-53.0) % Neutrophils # 13.2 H (1.3-7.7) k/uL Sodium (137-145) mmol/L Potassium (3.5-5.1) mmol/L Carbon Dioxide (22-30) mmol/L BUN (9-20) mg/dL Creatinine (0.66-1.25) mg/dL Glucose (74-99) mg/dL POC Glucose (mg/dL) 224 H 169 H (70-110) mg/dL Calcium (8.4-10.2) mg/dL Iron (65-175) ug/dL TIBC (228-460) ug/dL % Saturation (15.00-50.00) Transferrin (204.0-354.0) mg/dL Total Protein (6.3-8.2) g/dL 12/01/22 12/01/22 12/01/22 Range/Units 06:00 06:39 11:10 WBC (3.8-10.6) k/uL RBC (4.30-5.90) m/uL Hgb (13.0-17.5) gm/dL Hct (39.0-53.0) % Neutrophils # (1.3-7.7) k/uL Sodium 134 L (137-145) mmol/L Potassium 5.2 H (3.5-5.1) mmol/L Carbon Dioxide 20 L (22-30) mmol/L BUN 31 H (9-20) mg/dL Creatinine 2.09 H (0.66-1.25) mg/dL Glucose 178 H (74-99) mg/dL POC Glucose (mg/dL) 164 H 192 H (70-110) mg/dL Calcium 8.3 L (8.4-10.2) mg/dL Iron 13 L (65-175) ug/dL TIBC 225 L (228-460) ug/dL % Saturation 5.86 L (15.00-50.00) Transferrin 161.0 L (204.0-354.0) mg/dL Total Protein 5.8 L (6.3-8.2) g/dL
[2022-12-01 16:44] LABS: Glucose,Whole Blood 201 mg/dL (70-110)
[2022-12-01] MEDS: METOPROLOL TARTRATE 25 MG TAB PO SCH (20:21)
[2022-12-01] MEDS: SENNOSIDES-DOCUSATE SODIUM 1 EACH TAB PO SCH (20:21)
[2022-12-01 20:33] LABS: Glucose,Whole Blood 116 mg/dL (70-110)
[2022-12-01] MEDS ORDERED: INSULIN DETEMIR (LEVEMIR) 100 UNIT/ML SYR SQ SCH (21:00)
[2022-12-02] MEDS: HYDROcodone/APAP 5-325MG 1 EACH TAB PO PRN ×2 (00:05→06:16)
[2022-12-02] MEDS: HEPARIN SODIUM,PORCINE/PF 5,000 UNIT/0.5 ML SYRINGE SQ SCH ×4 (00:06→23:20)
[2022-12-02] MEDS: DILTIAZEM ORAL 30 MG TAB PO SCH (00:06)
[2022-12-02] MEDS: ACETAMINOPHEN TAB 500 MG TAB PO PRN ×2 (02:51→21:52)
[2022-12-02] MEDS: LEVOTHYROXINE 50 MCG TAB PO SCH (06:15)
[2022-12-02] MEDS: FERROUS SULFATE 325 MG TAB PO SCH ×2 (06:16→17:13)
[2022-12-02] MEDS: PANTOPRAZOLE 40 MG TABLET PO SCH (06:16)
--- NOTE | 2022-12-02 07:15 | P.PN ---
Subjective Progress Note Date: 12/02/22 This is a 77-year-old gentleman with a past medical history significant for coronary artery disease documented on recent heart catheterization which he was diagnosed with severe triple-vessel CAD after an echocardiogram came in to be abnormal showing mild cardiomyopathy was evidence of foreign motion abno rmalities concerning for severe CAD as well as history of diabetes and hypertension and dyslipidemia and chronic kidney disease. We consulted to see the patient for cardiac evaluation after her open-heart surgery. Apparently he was admitted to the hospital yesterday and underwent CABG 3 with ALMEIDA to LAD and left radial to obtuse marginal branch and SVG to RCA. He was extubated yesterday. This is postoperative patient day #2. The patient overall seems to be stable from a cardiac vascular standpoint of view. He has been maintaining normal sinus mechanism. Currently he is on Cardizem IV for the radial graft and he is in process to be switched into Cardizem by mouth. Beside that he is on dual antiplatelet therapy and he is on intermediate intensity statin. Urine output has been within normal limits. The blood pressure has been normal and somewhat on the soft side. I did review his a blood work from the morning and that revealed stable hemoglobin with a creatinine of 1.68 and he is known to have stage III chronic kidney disease. The chest x-ray also was reviewed mild pulmonary vascular congestion December [id number] The patient was seen and evaluated this morning. Overall he is stable and has been maintaining normal sinus mechanism. Urine output is stable. Hemoglobin is stable. The chest x-ray showed small pleural effusion and he is in process of getting a dose of Lasix. His kidney function is a slightly worse but he does have chronic kidney disease. December 022022 The patient was seen this morning. He remains stable from a cardiovascular standpoint of view. He remains in sinus mechanism. We don't have a blood work as of this morning. Hemodynamically he is stable. He is on maximize medical treatment. Assessment Severe triple-vessel CAD Status post CABG 3 as described above Chronic kidney disease Diabetes type 2 Hypertension Dyslipidemia Mild cardiomyopathy Plan Continue the current medical regimen Continue dual antiplatelet therapy and intermediate intensity statin Continue monitor the kidney function and electrolytes and continue monitor the h emoglobin Follow-up with the patient Objective - Vital Signs Vital signs: Vital Signs Temp 97.8 F 12/02/22 04:00 Pulse 67 12/02/22 04:00 Resp 18 12/02/22 04:00 BP 134/61 12/02/22 04:00 Pulse Ox 96 12/02/22 04:00 FiO2 6 11/29/22 18:40 Intake & Output 12/01/22 12/02/22 12/02/22 18:59 06:59 18:59 Intake Total 1179 10 Output Total 405 700 Balance 774 -690 Weight 76.3 kg Intake: IV 195 10 Invasive Line 1 10 Lactated Ringers 1,000 ml 150 @ 20 mls/hr IV .Q24H [facility] Rx#:[id number] Pressure bags 45 Oral 984 Output: Chest Tube Drainage 90 Chest Tube Bilateral 30 Chest Tube Mediastinal 60 Urine 315 700 Other: Voiding Method Urinal Toilet # Voids 1 1 ABP, PAP, CO, CI - Last Documented Arterial Blood Pressure 159/56 Pulmonary Artery Pressure 34/6 Cardiac Output 5 Cardiac Index 2.4 - Labs CBC & Chem 7: 12/01/22 06:00 12/01/22 06:00 Labs: Abnormal Lab Results - Last 24 Hours (Table) 12/01/22 12/01/22 12/01/22 Range/Units 06:00 11:10 16:42 POC Glucose (mg/dL) 192 H 201 H (70-110) mg/dL Iron 13 L (65-175) ug/dL TIBC 225 L (228-460) ug/dL % Saturation 5.86 L (15.00-50.00) Transferrin 161.0 L (204.0-354.0) mg/dL 12/01/22 Range/Units 20:32 POC Glucose (mg/dL) 116 H (70-110) mg/dL Iron (65-175) ug/dL TIBC (228-460) ug/dL % Saturation (15.00-50.00) Transferrin (204.0-354.0) mg/dL
--- NOTE | 2022-12-02 07:40 | XR ---
EXAMINATION TYPE: XR chest 2V DATE OF EXAM: 12/02/2022 6:31 AM COMPARISON: Chest radiograph from one day prior. TECHNIQUE: XR chest 2V Frontal and lateral views of the chest. CLINICAL INDICATION:Male, 77 years old with history of post cardiac surgery; FINDINGS: Lungs/Pleura: There is no evidence of pleural effusion, focal consolidation, or pneumothorax. Pulmonary vascularity: Unremarkable. Heart/mediastinum: Cardiomediastinal silhouette is unremarkable. Left atrial appendage occlusion michele ce is present. Musculoskeletal: No acute osseous pathology. Midline sternotomy wires are noted. Left thoracotomy tube has been removed. IMPRESSION: Stable exam post left thoracotomy tube removal, no evidence of pneumothorax.
[2022-12-02 07:41] LABS: Glucose,Whole Blood 183 mg/dL (70-110)
[2022-12-02] MEDS: ASPIRIN 325 MG TAB PO SCH (08:45)
[2022-12-02] MEDS: DILTIAZEM CD 120 MG CAP.ER.24H PO SCH (08:46)
[2022-12-02] MEDS: ZINC SULFATE 220 MG CAP PO SCH (08:46)
[2022-12-02] MEDS: AMIODARONE 200 MG TAB PO SCH ×2 (08:46→21:25)
[2022-12-02] MEDS: METOPROLOL TARTRATE 25 MG TAB PO SCH ×2 (08:46→21:25)
[2022-12-02] MEDS: ATORVASTATIN 40 MG TAB PO SCH (08:46)
[2022-12-02] MEDS: ASCORBIC ACID 500 MG TAB PO SCH (08:46)
[2022-12-02] MEDS: CHOLECALCIFEROL 25 MCG (1000 IU) TABLET PO SCH (08:46)
[2022-12-02] MEDS: CLOPIDOGREL 75 MG TAB PO SCH (08:46)
[2022-12-02] MEDS: INSULIN ASPART (NovoLOG) 100 UNIT/ML VIAL SQ SCH ×7 (08:46→21:22)
[2022-12-02 08:49] LABS: Basophils % (A) 0 %; Eosinophils % (A) 0 %; HCT 24.8 % (39.0-53.0); Lymphocytes # (A) 1.3 k/uL (1.0-4.8); Lymphocytes % (A) 9 %; MCH 30.4 pg (25.0-35.0); MCHC 32.2 g/dL (31.0-37.0); MCV 94.3 fL (80.0-100.0); Monocytes # (A) 0.8 k/uL (0-1.0); Monocytes % (A) 6 %; Neutrophils % (A) 83 %; Platelet Count 202 k/uL (150-450); RBC 2.63 m/uL (4.30-5.90); RDW 15.3 % (11.5-15.5); WBC 13.3 k/uL (3.8-10.6)
[2022-12-02] MEDS: ALBUTEROL NEBULIZED 2.5 MG/3 ML INHALATION SCH ×2 (08:58→11:50)
[2022-12-02] MEDS: IPRATROPIUM 0.5 MG/2.5 ML NEBU INHALATION SCH ×2 (09:01→11:50)
[2022-12-02 09:44] LABS: Albumin 3.2 g/dL (3.5-5.0); Calcium 8.3 mg/dL (8.4-10.2); Potassium 5.6 mmol/L (3.5-5.1); Total Bilirubin 0.6 mg/dL (0.2-1.3); Total Protein 5.3 g/dL (6.3-8.2)
[2022-12-02 11:46] LABS: Glucose,Whole Blood 290 mg/dL (70-110)
[2022-12-02] MEDS ORDERED: INSULIN DETEMIR (LEVEMIR) 100 UNIT/ML SYR SQ STA (12:27)
--- NOTE | 2022-12-02 12:29 | P.PN ---
Subjective Progress Note Date: 12/02/22 Principal diagnosis: Coronary artery disease. Past medical history significant for hypertension, hyperlipidemia, dlq-agdwfgt-xyzxkyteo diabetes, previous tobacco dependence, remote history of pneumonia. POD #3 off-pump coronary artery bypass graft 3 with left internal mammary artery to the left anterior descending artery, left radial artery graft to the obtuse marginal artery, a reverse saphenous vein graft to the posterior descending artery, endovascular vein harvest from the left thigh, left endovascular radial artery harvest and ligation of left atrial appendage with a 35 mm Atricure clip. The patient was seen and examined in follow-up today 12/02/2022 at his bedside on the cardiac stepdown unit. Currently sitting up to the bedside chair, is awake, alert, oriented 3 and is in no acute apparent distress. Reports he feels somewhat tired today, although denies any complaints of shortness of breath and is currently rating his pain 3 out of 10 on the pain scale. Oxygen saturation are 96% on 2 L nasal cannula and he is achieving 1500 mL on his incentive spirometry with encouragement. Remote telemetry showing normal sinus rhythm heart rate 65 BPM. Chest x-ray was reviewed. Objective - Vital Signs Vital signs: Vital Signs Temp 97.6 F 12/02/22 08:40 Pulse 76 12/02/22 12:11 Resp 18 12/02/22 08:40 BP 122/57 12/02/22 08:40 Pulse Ox 94 L 12/02/22 08:40 FiO2 6 11/29/22 18:40 Intake & Output 12/01/22 12/02/22 12/02/22 18:59 06:59 18:59 Intake Total 1179 10 Output Total 405 700 Balance 774 -690 Weight 76.3 kg Intake: IV 195 10 Invasive Line 1 10 Lactated Ringers 1,000 ml 150 @ 20 mls/hr IV .Q24H [facility] Rx#:[id number] Pressure bags 45 Oral 984 Output: Chest Tube Drainage 90 Chest Tube Bilateral 30 Chest Tube Mediastinal 60 Urine 315 700 Other: Voiding Method Urinal Toilet Toilet # Voids 1 1 ABP, PAP, CO, CI - Last Documented Arterial Blood Pressure 159/56 Pulmonary Artery Pressure 34/6 Cardiac Output 5 Cardiac Index 2.4 - Exam CONSTITUTIONAL: Appears comfortable, cooperative, no acute distress RESPIRATORY: Lungs sounds clear throughout, diminished to his bilateral bases. Respirations are symmetrical, nonlabored. Currently on 2 LPM NC with oxygen saturation 96%. Able to achieve 1500 mL on incentive spirometry. Strong cough. CARDIOVASCULAR: S1, S2 present. Regular rate and rhythm, sinus rhythm on telemetry, heart rate 65 BPM. Sternum stable. Palpable peripheral pulses bilaterally. Trace edema present. No calf pain or tenderness noted. Heart hugger in place with patient demonstrating appropriate use. Antiembolism stockings, SCDs present. GASTROINTESTINAL: Abdomen soft, nontender, nondistended. Active bowel sounds present 4 quadrants. Tolerating clear liquids. Passing flatus. GENITOURINARY: Continues to void, 450 mL of urine output in the last 8 hours. INTEGUMENTARY: Skin is warm and dry, no clubbing or cyanosis is present. Mi dline mediastinal chest incision well approximated and covered with dry intact dressing. Left lower extremity EVH site, left radial artery harvest site well approximated without redness or drainage. NEUROLOGIC: Cranial nerves II through XII intact. No focal deficits. MUSKULOSKELETAL: Able to move all extremities, strength equal bilaterally, gait normal. PSYCHIATRIC: Alert and oriented to person place and time, appropriate affect, intact judgment and insight. - Allied health notes Allied health notes reviewed: nursing - Labs CBC & Chem 7: 12/02/22 08:00 12/02/22 08:00 Labs: Abnormal Lab Results - Last 24 Hours (Table) 12/01/22 12/01/22 12/02/22 Range/Units 16:42 20:32 07:39 WBC (3.8-10.6) k/uL RBC (4.30-5.90) m/uL Hgb (13.0-17.5) gm/dL Hct (39.0-53.0) % Neutrophils # (1.3-7.7) k/uL Sodium (137-145) mmol/L Potassium (3.5-5.1) mmol/L BUN (9-20) mg/dL Creatinine (0.66-1.25) mg/dL Glucose (74-99) mg/dL POC Glucose (mg/dL) 201 H 116 H 183 H (70-110) mg/dL Calcium (8.4-10.2) mg/dL Total Protein (6.3-8.2) g/dL Albumin (3.5-5.0) g/dL 12/02/22 12/02/22 12/02/22 Range/Units 08:00 08:00 11:45 WBC 13.3 H (3.8-10.6) k/uL RBC 2.63 L (4.30-5.90) m/uL Hgb 8.0 L (13.0-17.5) gm/dL Hct 24.8 L (39.0-53.0) % Neutrophils # 11.0 H (1.3-7.7) k/uL Sodium 133 L (137-145) mmol/L Potassium 5.6 H (3.5-5.1) mmol/L BUN 46 H (9-20) mg/dL Creatinine 2.67 H (0.66-1.25) mg/dL Glucose 164 H (74-99) mg/dL POC Glucose (mg/dL) 290 H (70-110) mg/dL Calcium 8.3 L (8.4-10.2) mg/dL Total Protein 5.3 L (6.3-8.2) g/dL Albumin 3.2 L (3.5-5.0) g/dL - Imaging and Cardiology Chest x-ray: report reviewed, image reviewed Assessment and Plan Assessment: 1. Coronary artery disease, status post 3V off pump cabg 2. Mildly reduced LV function, EF 45-50% 3. History of hypertension 4. Hyperlipidemia, treated, chol 177, LDL 91, trig 257 5. Aad-zqmfwtp-cjlfcbrxp diabetes, hgbAIc 7.8% 6. Previous tobacco dependence, preoperative FEV1 83% 7. Remote history of pneumonia 8. Hypothyroid 9. Chronic kidney disease stage III 10. Prior history of Covid, vaccinated and boosted 11. Family history of CAD Plan: 1. Continue to maximize medical therapy with ASA, plavix, statin, and beta louis. Will increase beta louis as tolerated. 2. Change Cardizem to Cardizem CD 120 mg by mouth daily for radial artery spasm prophylaxis.. 3. Continue amio for afib prophylaxis. 4. Wean oxygen as tolerated, encourage incentive spirometer 10 times every hour while awake. Bronchodilators per pulmonology.. 5. Increase activity as tolerated. PT/OT/cardiac rehab following 6. Will monitor daily labs, and CXR. Electrolyte replacement per protocol. 7. GI/DVT prophylaxis. 8. Pain control per current medication regimen. No Toradol due to chronic kidney disease. 9. Insulin management per internal medicine. Preoperative hemoglobin A1c 7.8%. 10. No diuresis today. 11. Continue to record strict inaccurate I's and O's. 12. May bladder scan and straight cath for greater then 300 mL residual 13. Daily weights. 14. Discharge planning is in place, anticipate discharge home with home health care in the next 24-48 hours. 15. More recommendations to follow based on patient's clinical course. Time with Patient: Greater than 30
[2022-12-02] MEDS ORDERED: SODIUM ZIRCONIUM CYCLOSILICATE 10 GM PACKET PO ONE (12:33)
--- NOTE | 2022-12-02 12:35 | P.PN ---
Subjective Progress Note Date: 12/02/22 Patient is a 77-year-old male with hypertension, CKD, ysd-lqkxbmw-zkjbnhlhv diabetes, and hypothyroidism admitted for off pump CABG 3 including ligation of the left atrial appendage. Patient seen and examined sitting in chair. No acute events overnight. Still has shortness of breath with ambulation. Denies any shortness of breath at rest, chest pain, abdominal pain. Vital signs reviewed General: nontoxic, no distress, appears at stated age Cardiovascular: S1S2 reg, no murmur, positive posterior tibial pulse bilateral, Lungs: Decreased bs bilateral, no rhonchi, no rales , no accessory muscle use supplemental oxygen Abdominal: soft, nontender to palpation, no guarding, no appreciable organomegaly Ext: no gross muscle atrophy, no edema, no contractures Neuro: CN II-XI grossly intact, no focal neuro deficits Psych: Alert, oriented, appropriate affect Assessment: A 77-year-old male with coronary artery disease status post off-pump triple vessel bypass on 11/29/22. Acute hypoxic respiratory failure, anticipated outcome of surgery Acute blood loss anemia, anticipated outcome of surgery Acute on Chronic kidney disease stage III Diabetes mellitus type 2, mhv-zrfplen-kdshdesjc Cardiomyopathy with ejection fraction 45-50% Dyslipidemia Hypertension Hypothyroidism Leukocytosis, reactive Imaging: Chest X-ray is reviewed by myself, no acute pathology Data Review: Laboratory analysis shows white blood cell count 13.3, Anemia 8, Sodium 133, potassium 5.6, BUN 31, Cr 2.67 Blood sugars reviewed ranged from 116-21 Plan: -Still has elevated blood sugars, increase Levemir to 20 units at night, continue 6 units aspart 3 times a day, will give another 5 units of Levemir now -Patient to be placed on Jardiance upon discharge -For deficiency, patient receiving IV iron 3 doses, last dose on 12/04 -Renal function slightly worsening, possibly in the setting of recent surgery a nd blood loss anemia, hold off any further diuretics for today, repeat BMP tomorrow -For hyperkalemia, ordered 10 gm lokelma, repeat BMP tomorrow -Repeat CBC to monitor for anemia -Cardiology note reviewed: No new changes -Pulmonology and cardiothoracic follow -Patient started on Cardizem 120 mg daily, per cardiothoracic DVT prophylaxis: Heparin subcutaneous Thank you for allowing us to participate in the care of this pleasant patient. Do not hesitate to contact us with questions. Someone can be reached from the [facility] hospitalist group all hours of the day at [phone] or via perfect serve. Objective - Vital Signs Vital signs: Vital Signs Temp 97.6 F 12/02/22 08:40 Pulse 76 12/02/22 12:11 Resp 18 12/02/22 08:40 BP 122/57 12/02/22 08:40 Pulse Ox 94 L 12/02/22 08:40 FiO2 6 11/29/22 18:40 Intake & Output 12/01/22 12/02/22 12/02/22 18:59 06:59 18:59 Intake Total 1179 10 Output Total 405 700 Balance 774 -690 Weight 76.3 kg Intake: IV 195 10 Invasive Line 1 10 Lactated Ringers 1,000 ml 150 @ 20 mls/hr IV .Q24H [facility] Rx#:[id number] Pressure bags 45 Oral 984 Output: Chest Tube Drainage 90 Chest Tube Bilateral 30 Chest Tube Mediastinal 60 Urine 315 700 Other: Voiding Method Urinal Toilet Toilet # Voids 1 1 ABP, PAP, CO, CI - Last Documented Arterial Blood Pressure 159/56 Pulmonary Artery Pressure 34/6 Cardiac Output 5 Cardiac Index 2.4 - Labs CBC & Chem 7: 12/02/22 08:00 12/02/22 08:00 Labs: Abnormal Lab Results - Last 24 Hours (Table) 12/01/22 12/01/22 12/02/22 Range/Units 16:42 20:32 07:39 WBC (3.8-10.6) k/uL RBC (4.30-5.90) m/uL Hgb (13.0-17.5) gm/dL Hct (39.0-53.0) % Neutrophils # (1.3-7.7) k/uL Sodium (137-145) mmol/L Potassium (3.5-5.1) mmol/L BUN (9-20) mg/dL Creatinine (0.66-1.25) mg/dL Glucose (74-99) mg/dL POC Glucose (mg/dL) 201 H 116 H 183 H (70-110) mg/dL Calcium (8.4-10.2) mg/dL Total Protein (6.3-8.2) g/dL Albumin (3.5-5.0) g/dL 12/02/22 12/02/22 12/02/22 Range/Units 08:00 08:00 11:45 WBC 13.3 H (3.8-10.6) k/uL RBC 2.63 L (4.30-5.90) m/uL Hgb 8.0 L (13.0-17.5) gm/dL Hct 24.8 L (39.0-53.0) % Neutrophils # 11.0 H (1.3-7.7) k/uL Sodium 133 L (137-145) mmol/L Potassium 5.6 H (3.5-5.1) mmol/L BUN 46 H (9-20) mg/dL Creatinine 2.67 H (0.66-1.25) mg/dL Glucose 164 H (74-99) mg/dL POC Glucose (mg/dL) 290 H (70-110) mg/dL Calcium 8.3 L (8.4-10.2) mg/dL Total Protein 5.3 L (6.3-8.2) g/dL Albumin 3.2 L (3.5-5.0) g/dL
[2022-12-02] MEDS ORDERED: ALBUTEROL HFA INHALER INHALATION PRN (12:56)
[2022-12-02] MEDS: SODIUM FERRIC GLUCONAT-SUCROSE 125 MG in SODIUM CHLORIDE 0.9% 100 ML IVPB SCH (13:58)
--- NOTE | 2022-12-02 15:14 | P.PN ---
Subjective Progress Note Date: 12/02/22 This is a 77-year-old male patient with history hypertension, chronic kidney disease, diabetes mellitus, hypothyroidism, CoVID infection 3 and previous chronic tobacco dependence. He also has cardiomyopathy with ejection fraction 40-45%. Recent cardiac catheterization revealed significant coronary artery disease including 90% LAD, 99% circumflex, 99% mid RCA. He was recommended coronary artery bypass grafting. He is brought in today electively with Dr. Gomez and had undergone a off-pump coronary revascularization 3 utilizing a ALMEIDA to the LAD, saphenous vein graft to the PDA, left radial artery to the OM. He is seen in the intensive care unit. Currently sedated on mechanical ventilator and assist control mode with for a rate of 14, tidal I'm 600, FiO2 80% and a PEEP of 5. Blood gases revealed a pO2 of 253, pCO2 36, pH 7.38 that was on 100% FiO2. He is receiving lactated Ringer's at 50 MLS per hour. Insulin drip at 1.5 units per hour. Amiodarone drip at 1 mg/m. Nitroglycerin drip at 5 mcg/m. Cardizem drip at 5 mg per hour. Propofol at 45 mcg/kg/m. Cardiac output 5.9. Cardiac index 2.8. PA pressures 13/16. CVP 10. Chest x- ray reveals postoperative changes with a left lower lobe consolidation. Favoring postoperative atelectasis with a tiny pleural effusion versus inf iltrate. Mediastinal, right/left pleural chest tubes in place. White count 8.2. Hemoglobin 7.7. Platelets 164. INR 1.2. Sodium 141. Potassium 3.7. Bicarb 22. BUN 26. Creatinine 1.62. Glucose 135. AST 20. ALT 20. Total protein 5.1. Albumin 3.4. He's been initiated on bronchodilators. Heparin for DVT prophylaxis. The patient is seen today 11/30/2022 in follow-up in the intensive care unit. He is currently sitting up in a chair at the bedside. Awake and alert in no acute distress. He is maintaining good O2 saturations in the 90s on 3 L/m per nasal cannula. His lactated Ringer's at 25 ML's per hour. Insulin drip at 5 units per hour. Chest x-ray shows a trace left apical pneumothorax. Bilateral and mediastinal chest tubes remain in place. Right IJ Desha-Joe catheter in place. Mild cardiomegaly. Increasing interstitial changes. Some mild pulmonary vascular congestion. Atelectasis. Encouraged to continue working with the incentive spirometer. White count 10.1. Hemoglobin 8.3. Platelets 201. Sodium 136. Potassium 4.2. Bicarb 21. BUN 24. Creatinine 1.68. Glucose 112. Cardiac output 5.0. Cardiac index 2.4. PA pressure 27/6. Hemodynamically stable. Maintaining sinus rhythm. Since seen today 12/01/2022 in follow-up in the intensive care unit. He is awake and alert in no acute distress. Sitting up in a chair at the bedside. He is maintaining O2 saturations in the 90s on 4 L/m per nasal cannula. Lactated Ringer's at 20 ML's per hour. He remains on bronchodilators. Heparin for DVT prophylaxis. Chest x-ray showing some bilateral atelectasis and small effusions. Less than 5% left apical pneumothorax. White count 15.8. Hemoglobin 9.0. Sodium 134. Potassium 5.2. Bicarb 20. BUN 31. Creatinine 2.09. Glucose 178. Right internal jugular Cordis, left and right pleural chest tubes, mediastinal chest tubes present. Right radial arterial line in place. The patient is seen today 12/02/2022 in follow-up on the selective care unit. He is currently sitting up in a chair at the bedside. Awake and alert in no acute distress. He is maintaining good O2 saturations in the 90s on 2 L/m per nasal cannula. No IV fluids. X-ray reveals no evidence of pneumothorax. Left thoracotomy tube removed. White count 13.3. Hemoglobin 8.0. Platelets 202. Sodium 133. Potassium 5.6. Bicarb 23. BUN 46. Creatinine 2.67. Glucose 164. He well with the incentive spirometer. He remains on bronchodilators. Heparin for DVT prophylaxis. Currently in a regular rhythm. Objective - Vital Signs Vital signs: Vital Signs Temp 97.6 F 12/02/22 08:40 Pulse 76 12/02/22 12:11 Resp 18 12/02/22 08:40 BP 122/57 12/02/22 08:40 Pulse Ox 94 L 12/02/22 08:40 FiO2 6 11/29/22 18:40 Intake & Output 12/01/22 12/02/22 12/02/22 18:59 06:59 18:59 Intake Total 1179 10 Output Total 405 700 Balance 774 -690 Weight 76.3 kg Intake: IV 195 10 Invasive Line 1 10 Lactated Ringers 1,000 ml 150 @ 20 mls/hr IV .Q24H [facility] Rx#:[id number] Pressure bags 45 Oral 984 Output: Chest Tube Drainage 90 Chest Tube Bilateral 30 Chest Tube Mediastinal 60 Urine 315 700 Other: Voiding Method Urinal Toilet Toilet # Voids 1 1 ABP, PAP, CO, CI - Last Documented Arterial Blood Pressure 159/56 Pulmonary Artery Pressure 34/6 Cardiac Output 5 Cardiac Index 2.4 - Exam GENERAL EXAM: Alert, pleasant 77-year-old male patient, in a chair, on 2 L nasal cannula, comfortable in no apparent distress. HEAD: Normocephalic. EYES: Brisk reaction of pupils, equal size. NOSE: Clear with pink turbinates. THROAT: No erythema or exudates. NECK: No masses, no JVD. CHEST: Sternal dressing dry and intact. LUNGS: Equal air entry with crackles in the left base. CVS: S1 and S2 normal with no audible murmur, regular rhythm. ABDOMEN: No hepatosplenomegaly, hypoactive bowel sounds, no guarding or rigidity. SPINE: No scoliosis or deformity SKIN: No rashes CENTRAL NERVOUS SYSTEM: Sedated, tone is normal in all 4 extremities. EXTREMITIES: Rayray wrap to bilateral lower extremities. There is trace peripheral edema. Peripheral pulses are intact. - Labs CBC & Chem 7: 12/02/22 08:00 12/02/22 08:00 Labs: Abnormal Lab Results - Last 24 Hours (Table) 12/01/22 12/01/22 12/02/22 Range/Units 16:42 20:32 07:39 WBC (3.8-10.6) k/uL RBC (4.30-5.90) m/uL Hgb (13.0-17.5) gm/dL Hct (39.0-53.0) % Neutrophils # (1.3-7.7) k/uL Sodium (137-145) mmol/L Potassium (3.5-5.1) mmol/L BUN (9-20) mg/dL Creatinine (0.66-1.25) mg/dL Glucose (74-99) mg/dL POC Glucose (mg/dL) 201 H 116 H 183 H (70-110) mg/dL Calcium (8.4-10.2) mg/dL Total Protein (6.3-8.2) g/dL Albumin (3.5-5.0) g/dL 12/02/22 12/02/22 12/02/22 Range/Units 08:00 08:00 11:45 WBC 13.3 H (3.8-10.6) k/uL RBC 2.63 L (4.30-5.90) m/uL Hgb 8.0 L (13.0-17.5) gm/dL Hct 24.8 L (39.0-53.0) % Neutrophils # 11.0 H (1.3-7.7) k/uL Sodium 133 L (137-145) mmol/L Potassium 5.6 H (3.5-5.1) mmol/L BUN 46 H (9-20) mg/dL Creatinine 2.67 H (0.66-1.25) mg/dL Glucose 164 H (74-99) mg/dL POC Glucose (mg/dL) 290 H (70-110) mg/dL Calcium 8.3 L (8.4-10.2) mg/dL Total Protein 5.3 L (6.3-8.2) g/dL Albumin 3.2 L (3.5-5.0) g/dL Assessment and Plan Assessment: Significant triple-vessel coronary artery disease. Status post coronary artery bypass grafting utilizing a ALMEIDA to the LAD, saphenous vein graft to the PDA, left radial artery as to the OM and ligation of left atrial appendage with AtriCure clip. Postoperative day #3 Former smoker Diabetes mellitus Hypertension Hypothyroidism History of seizures History of COVID-19 infection 3 Plan: The patient was seen and evaluated Chest x-ray, labs and medications reviewed Increase his activity as tolerated Continue the incentive spirometer Heparin for DVT prophylaxis We will continue to follow I have personally seen and examined the patient, performed the documentation and the assessment and plan as written. Number of minutes spent on the visit: 10.
[2022-12-02] MEDS: ALBUTEROL HFA INHALER INHALATION SCH ×3 (15:38→21:09)
[2022-12-02 16:42] LABS: Glucose,Whole Blood 189 mg/dL (70-110)
--- NOTE | 2022-12-02 20:04 | US ---
EXAMINATION TYPE: US kidneys/renal and bladder DATE OF EXAM: 12/02/2022 COMPARISON: NONE CLINICAL HISTORY: RAJAN. 3 days post op CABG, RAJAN EXAM MEASUREMENTS: Right Kidney: 7.7 x 3.8 x 4.8 cm Left Kidney: 9.2 x 4.0 x 5.0 cm Right Kidney: Limited views due to bowel gas, smaller in size, 2 cysts seen, largest inferior pole = 5.1 x 4.6 x 5.1cm Left Kidney: Limited views appear wnl Bladder: wnl No evidence of bladder mass. Renal cortex has fairly normal echogenicity. IMPRESSION: There is right renal cortical cysts. No evidence of solid renal mass or obstruction.
[2022-12-02] MEDS ORDERED: INSULIN DETEMIR (LEVEMIR) 100 UNIT/ML SYR SQ SCH (21:00)
[2022-12-02 21:21] LABS: Glucose,Whole Blood 69 mg/dL (70-110)
[2022-12-02] MEDS: SENNOSIDES-DOCUSATE SODIUM 1 EACH TAB PO SCH (21:25)
[2022-12-02 21:37] LABS: Glucose,Whole Blood 58 mg/dL (70-110)
[2022-12-02 21:50] LABS: Glucose,Whole Blood 87 mg/dL (70-110)
[2022-12-03 00:41] LABS: Glucose,Whole Blood 227 mg/dL (70-110)
[2022-12-03] MEDS: HYDROcodone/APAP 5-325MG 1 EACH TAB PO PRN (00:41)
[2022-12-03] MEDS: LEVOTHYROXINE 50 MCG TAB PO SCH (06:13)
[2022-12-03] MEDS: FERROUS SULFATE 325 MG TAB PO SCH ×2 (06:13→17:40)
[2022-12-03] MEDS: PANTOPRAZOLE 40 MG TABLET PO SCH (06:13)
[2022-12-03 06:58] LABS: Glucose,Whole Blood 159 mg/dL (70-110)
--- NOTE | 2022-12-03 07:46 | XR ---
EXAMINATION TYPE: XR chest 2V DATE OF EXAM: 12/03/2022 6:22 AM COMPARISON: Chest radiographs from 12/02/2022 TECHNIQUE: XR chest 2V Frontal and lateral views of the chest. CLINICAL INDICATION:Male, 77 years old with history of Post Op CABG; FINDINGS: Lungs/Pleura: There is no evidence of pleural effusion, focal consolidation, or pneumothorax. Pulmonary vascularity: Unremarkable. Heart/mediastinum: Cardiomediastinal silhouette is unremarkable. Left atrial appendage occlusion michele ce is present. Musculoskeletal: No acute osseous pathology. Midline sternotomy wires are noted. Left thoracotomy tube has been removed. IMPRESSION: Stable exam post no evidence of pneumothorax.
--- NOTE | 2022-12-03 07:49 | P.PN ---
Subjective Progress Note Date: 12/03/22 This is a 77-year-old gentleman with a past medical history significant for coronary artery disease documented on recent heart catheterization which he was diagnosed with severe triple-vessel CAD after an echocardiogram came in to be abnormal showing mild cardiomyopathy was evidence of foreign motion abno rmalities concerning for severe CAD as well as history of diabetes and hypertension and dyslipidemia and chronic kidney disease. We consulted to see the patient for cardiac evaluation after her open-heart surgery. Apparently he was admitted to the hospital yesterday and underwent CABG 3 with ALMEIDA to LAD and left radial to obtuse marginal branch and SVG to RCA. He was extubated yesterday. This is postoperative patient day #2. The patient overall seems to be stable from a cardiac vascular standpoint of view. He has been maintaining normal sinus mechanism. Currently he is on Cardizem IV for the radial graft and he is in process to be switched into Cardizem by mouth. Beside that he is on dual antiplatelet therapy and he is on intermediate intensity statin. Urine output has been within normal limits. The blood pressure has been normal and somewhat on the soft side. I did review his a blood work from the morning and that revealed stable hemoglobin with a creatinine of 1.68 and he is known to have stage III chronic kidney disease. The chest x-ray also was reviewed mild pulmonary vascular congestion December [id number] The patient was seen and evaluated this morning. Overall he is stable and has been maintaining normal sinus mechanism. Urine output is stable. Hemoglobin is stable. The chest x-ray showed small pleural effusion and he is in process of getting a dose of Lasix. His kidney function is a slightly worse but he does have chronic kidney disease. December [id number] The patient was seen this morning. He remains stable from a cardiovascular standpoint of view. He remains in sinus mechanism. We don't have a blood work as of this morning. Hemodynamically he is stable. He is on maximize medical treatment. December [id number] The patient was seen this morning. He remains stable from a cardiovascular standpoint of view. The pressure and heart rate have been within normal limits. His potassium was slightly elevated today but no with potassium as of yet. His kidney function also was slightly worse yesterday still waiting for the blood work. He states "I feel fine". Examination he is euvolemic with clear breathing sounds bilaterally and no lower extremities Assessment Severe triple-vessel CAD Status post CABG 3 as described above Chronic kidney disease Diabetes type 2 Hypertension Dyslipidemia Mild cardiomyopathy Plan Follow up on the kidney function and electrolytes from the morning Consider giving the patient Kayexalate if potassium remains elevated Continue the current medical regimen Follow-up with the patient Objective - Vital Signs Vital signs: Vital Signs Temp 98.1 F 12/03/22 04:00 Pulse 67 12/03/22 04:00 Resp 18 12/03/22 04:00 BP 131/65 12/03/22 04:00 Pulse Ox 96 12/03/22 04:00 FiO2 6 11/29/22 18:40 Intake & Output 12/02/22 12/03/22 12/03/22 18:59 06:59 18:59 Intake Total 100 10 Output Total 900 Balance 100 -890 Weight 82.2 kg Intake: IV 10 Invasive Line 5 10 Intake, IV Titration 100 Amount Sodium Ferric Gluconat- 100 Sucrose 125 mg In Sodium Chloride 0.9% 100 ml @ 100 mls/hr IVPB DAILY [facility] Rx#:[id number] Output: Urine 900 Other: Voiding Method Toilet Toilet # Voids 4 # Bowel Movements 2 1 ABP, PAP, CO, CI - Last Documented Arterial Blood Pressure 159/56 Pulmonary Artery Pressure 34/6 Cardiac Output 5 Cardiac Index 2.4 - Labs CBC & Chem 7: 12/02/22 08:00 12/02/22 08:00 Labs: Abnormal Lab Results - Last 24 Hours (Table) 12/02/22 12/02/22 12/02/22 Range/Units 08:00 08:00 11:45 WBC 13.3 H (3.8-10.6) k/uL RBC 2.63 L (4.30-5.90) m/uL Hgb 8.0 L (13.0-17.5) gm/dL Hct 24.8 L (39.0-53.0) % Neutrophils # 11.0 H (1.3-7.7) k/uL Sodium 133 L (137-145) mmol/L Potassium 5.6 H (3.5-5.1) mmol/L BUN 46 H (9-20) mg/dL Creatinine 2.67 H (0.66-1.25) mg/dL Glucose 164 H (74-99) mg/dL POC Glucose (mg/dL) 290 H (70-110) mg/dL Calcium 8.3 L (8.4-10.2) mg/dL Total Protein 5.3 L (6.3-8.2) g/dL Albumin 3.2 L (3.5-5.0) g/dL 12/02/22 12/02/22 12/02/22 Range/Units 16:40 21:19 21:35 WBC (3.8-10.6) k/uL RBC (4.30-5.90) m/uL Hgb (13.0-17.5) gm/dL Hct (39.0-53.0) % Neutrophils # (1.3-7.7) k/uL Sodium (137-145) mmol/L Potassium (3.5-5.1) mmol/L BUN (9-20) mg/dL Creatinine (0.66-1.25) mg/dL Glucose (74-99) mg/dL POC Glucose (mg/dL) 189 H 69 L 58 L (70-110) mg/dL Calcium (8.4-10.2) mg/dL Total Protein (6.3-8.2) g/dL Albumin (3.5-5.0) g/dL 12/03/22 12/03/22 Range/Units 00:38 06:40 WBC (3.8-10.6) k/uL RBC (4.30-5.90) m/uL Hgb (13.0-17.5) gm/dL Hct (39.0-53.0) % Neutrophils # (1.3-7.7) k/uL Sodium (137-145) mmol/L Potassium (3.5-5.1) mmol/L BUN (9-20) mg/dL Creatinine (0.66-1.25) mg/dL Glucose (74-99) mg/dL POC Glucose (mg/dL) 227 H 159 H (70-110) mg/dL Calcium (8.4-10.2) mg/dL Total Protein (6.3-8.2) g/dL Albumin (3.5-5.0) g/dL
[2022-12-03] MEDS: ZINC SULFATE 220 MG CAP PO SCH (08:35)
[2022-12-03] MEDS: ATORVASTATIN 40 MG TAB PO SCH (08:35)
[2022-12-03] MEDS: CHOLECALCIFEROL 25 MCG (1000 IU) TABLET PO SCH (08:35)
[2022-12-03] MEDS: AMIODARONE 200 MG TAB PO SCH ×2 (08:35→20:41)
[2022-12-03] MEDS: SODIUM FERRIC GLUCONAT-SUCROSE 125 MG in SODIUM CHLORIDE 0.9% 100 ML IVPB SCH (08:35)
[2022-12-03] MEDS: METOPROLOL TARTRATE 25 MG TAB PO SCH ×2 (08:35→20:42)
[2022-12-03] MEDS: ASPIRIN 325 MG TAB PO SCH (08:35)
[2022-12-03] MEDS: CLOPIDOGREL 75 MG TAB PO SCH (08:35)
[2022-12-03] MEDS: ASCORBIC ACID 500 MG TAB PO SCH (08:35)
[2022-12-03] MEDS: INSULIN ASPART (NovoLOG) 100 UNIT/ML VIAL SQ SCH ×5 (08:36→20:41)
[2022-12-03] MEDS: HEPARIN SODIUM,PORCINE/PF 5,000 UNIT/0.5 ML SYRINGE SQ SCH ×3 (08:37→23:23)
[2022-12-03] MEDS: DILTIAZEM CD 120 MG CAP.ER.24H PO SCH (08:38)
[2022-12-03 09:22] LABS: HCT 26.1 % (39.0-53.0); HGB 8.5 gm/dL (13.0-17.5); MCH 31.8 pg (25.0-35.0); MCHC 32.4 g/dL (31.0-37.0); MCV 98.3 fL (80.0-100.0); Macrocytosis Slight; Mean Platelet Volume 9.1; Platelet Count 200 k/uL (150-450); RBC 2.66 m/uL (4.30-5.90); RDW 15.2 % (11.5-15.5); WBC 12.3 k/uL (3.8-10.6)
[2022-12-03] MEDS: TIOTROPIUM 2.5 MCG INHALER INHALATION SCH (09:23)
[2022-12-03] MEDS: ALBUTEROL HFA INHALER INHALATION SCH ×4 (09:23→19:57)
[2022-12-03 09:41] LABS: Calcium 8.2 mg/dL (8.4-10.2); Potassium 5.2 mmol/L (3.5-5.1)
[2022-12-03] MEDS ORDERED: hydrOXYzine HCL 25 MG TAB PO STA (09:44)
[2022-12-03] MEDS ORDERED: SODIUM POLYSTYRENE SULFONATE 15 GM/60 ML BOTTLE PO STA (09:44)
--- NOTE | 2022-12-03 10:40 | P.PN ---
Subjective Progress Note Date: 12/03/22 Principal diagnosis: Coronary artery disease. Past medical history significant for hypertension, hyperlipidemia, [id number] diabetes, previous tobacco dependence, remote history of pneumonia. POD #4 off-pump coronary artery bypass graft 3 with left internal mammary artery to the left anterior descending artery, left radial artery graft to the obtuse marginal artery, a reverse saphenous vein graft to the posterior descending artery, endovascular vein harvest from the left thigh, left endovascular radial artery harvest and ligation of left atrial appendage with a 35 mm Atricure clip. Patient was seen and examined today 12/03/2022 at his bedside on the cardiac stepdown unit. Currently sitting in the bedside chair, is awake, alert, oriented 3 and is in no acute apparent distress. Denies any complaints of shortness of breath at this time although reports this morning he felt somewhat short of breath which has since improved. Denies any complaints of pain at this time. Oxygen saturations are 97% on 2 L nasal cannula and his room air oxygen saturations are 92%. He is achieving around 2460-8764 mL on his incentive spirometry with encouragement. Remote telemetry showing normal sinus rhythm heart rate 60 BPM. He remains hemodynamically stable and is currently on no on pressor support. He has been up ambulating in the cardiac stepdown unit hallway with standby assistance with nursing and therapy staff. He is complaining of some constipation and received a Dulcolax suppository this morning. Chest x-ray was reviewed. Objective - Vital Signs Vital signs: Vital Signs Temp 98 F 12/03/22 08:35 Pulse 75 12/03/22 08:35 Resp 20 12/03/22 08:35 BP 131/59 12/03/22 08:35 Pulse Ox 91 L 12/03/22 09:24 FiO2 6 11/29/22 18:40 Intake & Output 12/02/22 12/03/22 12/03/22 18:59 06:59 18:59 Intake Total 100 10 Output Total 900 Balance 100 -890 Weight 82.2 kg Intake: IV 10 Invasive Line 5 10 Intake, IV Titration 100 Amount Sodium Ferric Gluconat- 100 Sucrose 125 mg In Sodium Chloride 0.9% 100 ml @ 100 mls/hr IVPB DAILY [facility] Rx#:[id number] Output: Urine 900 Other: Voiding Method Toilet Toilet Toilet # Voids 4 # Bowel Movements 2 1 ABP, PAP, CO, CI - Last Documented Arterial Blood Pressure 159/56 Pulmonary Artery Pressure 34/6 Cardiac Output 5 Cardiac Index 2.4 - Exam CONSTITUTIONAL: Appears comfortable, cooperative, no acute distress RESPIRATORY: Lungs sounds essentially clear throughout. Respirations are symmetrical, nonlabored. Currently on 2 LPM NC with oxygen saturation 97%. Able to achieve 9427-4862 mL on incentive spirometry. Strong cough. CARDIOVASCULAR: S1, S2 present. Regular rate and rhythm, sinus rhythm on telemetry, heart rate 60 BPM. Sternum stable. Palpable peripheral pulses bilaterally. No edema present. No calf pain or tenderness noted. Heart hugger in place with patient demonstrating appropriate use. Antiembolism stockings, SCDs present. GASTROINTESTINAL: Abdomen soft, nontender, nondistended. Active bowel sounds present 4 quadrants. Tolerating diet. Passing flatus. GENITOURINARY: Continues to void, 650 mL of urine output in the last 8 hours. INTEGUMENTARY: Skin is warm and dry, no clubbing or cyanosis is present. Midline mediastinal chest incision well approximated and covered with dry intact dressing. Left lower extremity EVH site, left radial artery harvest site well approximated without redness or drainage. NEUROLOGIC: Cranial nerves II through XII intact. No focal deficits. MUSKULOSKELETAL: Able to move all extremities, strength equal bilaterally, gait normal. PSYCHIATRIC: Alert and oriented to person place and time, appropriate affect, intact judgment and insight. - Allied health notes Allied health notes reviewed: nursing - Labs CBC & Chem 7: 12/03/22 08:51 12/03/22 08:51 Labs: Abnormal Lab Results - Last 24 Hours (Table) 12/02/22 12/02/22 12/02/22 Range/Units 11:45 16:40 21:19 WBC (3.8-10.6) k/uL RBC (4.30-5.90) m/uL Hgb (13.0-17.5) gm/dL Hct (39.0-53.0) % Sodium (137-145) mmol/L Potassium (3.5-5.1) mmol/L Carbon Dioxide (22-30) mmol/L BUN (9-20) mg/dL Creatinine (0.66-1.25) mg/dL Glucose (74-99) mg/dL POC Glucose (mg/dL) 290 H 189 H 69 L (70-110) mg/dL Calcium (8.4-10.2) mg/dL 12/02/22 12/03/22 12/03/22 Range/Units 21:35 00:38 06:40 WBC (3.8-10.6) k/uL RBC (4.30-5.90) m/uL Hgb (13.0-17.5) gm/dL Hct (39.0-53.0) % Sodium (137-145) mmol/L Potassium (3.5-5.1) mmol/L Carbon Dioxide (22-30) mmol/L BUN (9-20) mg/dL Creatinine (0.66-1.25) mg/dL Glucose (74-99) mg/dL POC Glucose (mg/dL) 58 L 227 H 159 H (70-110) mg/dL Calcium (8.4-10.2) mg/dL 12/03/22 12/03/22 Range/Units 08:51 08:51 WBC 12.3 H (3.8-10.6) k/uL RBC 2.66 L (4.30-5.90) m/uL Hgb 8.5 L (13.0-17.5) gm/dL Hct 26.1 L (39.0-53.0) % Sodium 134 L (137-145) mmol/L Potassium 5.2 H (3.5-5.1) mmol/L Carbon Dioxide 20 L (22-30) mmol/L BUN 53 H (9-20) mg/dL Creatinine 2.47 H (0.66-1.25) mg/dL Glucose 215 H (74-99) mg/dL POC Glucose (mg/dL) (70-110) mg/dL Calcium 8.2 L (8.4-10.2) mg/dL - Imaging and Cardiology Chest x-ray: report reviewed, image reviewed Assessment and Plan Assessment: 1. Coronary artery disease, status post 3V off pump cabg 2. Mildly reduced LV function, EF 45-50% 3. History of hypertension 4. Hyperlipidemia, treated, chol 177, LDL 91, trig 257 5. Acj-fehpway-aigfumcda diabetes, hgbAIc 7.8% 6. Previous tobacco dependence, preoperative FEV1 83% 7. Remote history of pneumonia 8. Hypothyroid 9. Chronic kidney disease stage III 10. Prior history of Covid, vaccinated and boosted 11. Family history of CAD Plan: 1. Continue to maximize medical therapy with ASA, plavix, statin, and beta louis. Will increase beta louis as tolerated. 2. Continue Cardizem to Cardizem CD 120 mg by mouth daily for radial artery spasm prophylaxis.. 3. Continue amio for afib prophylaxis. 4. Wean oxygen as tolerated, encourage incentive spirometer 10 times every hour while awake. Bronchodilators per pulmonology.. 5. Increase activity as tolerated. PT/OT/cardiac rehab following. 6. Will monitor daily labs, and chest x-ray. Electrolyte replacement per protocol. 7. GI/DVT prophylaxis. 8. Pain control per current medication regimen. No Toradol due to chronic kidney disease. 9. Insulin management per internal medicine. Preoperative hemoglobin A1c 7.8%. 10. No diuresis today. 11. Continue to record strict inaccurate I's and O's. 12. May bladder scan and straight cath for greater then 300 mL residual. 13. Daily weights. 14. Discharge planning is in place, anticipate discharge home with home health care in the next 24 hours. 15. More recommendations to follow based on patient's clinical course. Time with Patient: Greater than 30
[2022-12-03 11:33] LABS: Glucose,Whole Blood 220 mg/dL (70-110)
[2022-12-03] MEDS ORDERED: INSULIN ASPART (NovoLOG) 100 UNIT/ML VIAL SQ SCH (12:30)
--- NOTE | 2022-12-03 12:46 | P.PN ---
Subjective Progress Note Date: 12/03/22 This is a 77-year-old male patient with history hypertension, chronic kidney disease, diabetes mellitus, hypothyroidism, CoVID infection 3 and previous chronic tobacco dependence. He also has cardiomyopathy with ejection fraction 40-45%. Recent cardiac catheterization revealed significant coronary artery disease including 90% LAD, 99% circumflex, 99% mid RCA. He was recommended coronary artery bypass grafting. He is brought in today electively with Dr. Gomez and had undergone a off-pump coronary revascularization 3 utilizing a ALMEIDA to the LAD, saphenous vein graft to the PDA, left radial artery to the OM. He is seen in the intensive care unit. Currently sedated on mechanical ventilator and assist control mode with for a rate of 14, tidal I'm 600, FiO2 80% and a PEEP of 5. Blood gases revealed a pO2 of 253, pCO2 36, pH 7.38 that was on 100% FiO2. He is receiving lactated Ringer's at 50 MLS per hour. Insulin drip at 1.5 units per hour. Amiodarone drip at 1 mg/m. Nitroglycerin drip at 5 mcg/m. Cardizem drip at 5 mg per hour. Propofol at 45 mcg/kg/m. Cardiac output 5.9. Cardiac index 2.8. PA pressures 13/16. CVP 10. Chest x- ray reveals postoperative changes with a left lower lobe consolidation. Favoring postoperative atelectasis with a tiny pleural effusion versus inf iltrate. Mediastinal, right/left pleural chest tubes in place. White count 8.2. Hemoglobin 7.7. Platelets 164. INR 1.2. Sodium 141. Potassium 3.7. Bicarb 22. BUN 26. Creatinine 1.62. Glucose 135. AST 20. ALT 20. Total protein 5.1. Albumin 3.4. He's been initiated on bronchodilators. Heparin for DVT prophylaxis. The patient is seen today 11/30/2022 in follow-up in the intensive care unit. He is currently sitting up in a chair at the bedside. Awake and alert in no acute distress. He is maintaining good O2 saturations in the 90s on 3 L/m per nasal cannula. His lactated Ringer's at 25 ML's per hour. Insulin drip at 5 units per hour. Chest x-ray shows a trace left apical pneumothorax. Bilateral and mediastinal chest tubes remain in place. Right IJ Livingston-Joe catheter in place. Mild cardiomegaly. Increasing interstitial changes. Some mild pulmonary vascular congestion. Atelectasis. Encouraged to continue working with the incentive spirometer. White count 10.1. Hemoglobin 8.3. Platelets 201. Sodium 136. Potassium 4.2. Bicarb 21. BUN 24. Creatinine 1.68. Glucose 112. Cardiac output 5.0. Cardiac index 2.4. PA pressure 27/6. Hemodynamically stable. Maintaining sinus rhythm. Since seen today 12/01/2022 in follow-up in the intensive care unit. He is awake and alert in no acute distress. Sitting up in a chair at the bedside. He is maintaining O2 saturations in the 90s on 4 L/m per nasal cannula. Lactated Ringer's at 20 ML's per hour. He remains on bronchodilators. Heparin for DVT prophylaxis. Chest x-ray showing some bilateral atelectasis and small effusions. Less than 5% left apical pneumothorax. White count 15.8. Hemoglobin 9.0. Sodium 134. Potassium 5.2. Bicarb 20. BUN 31. Creatinine 2.09. Glucose 178. Right internal jugular Cordis, left and right pleural chest tubes, mediastinal chest tubes present. Right radial arterial line in place. The patient is seen today 12/02/2022 in follow-up on the selective care unit. He is currently sitting up in a chair at the bedside. Awake and alert in no acute distress. He is maintaining good O2 saturations in the 90s on 2 L/m per nasal cannula. No IV fluids. X-ray reveals no evidence of pneumothorax. Left thoracotomy tube removed. White count 13.3. Hemoglobin 8.0. Platelets 202. Sodium 133. Potassium 5.6. Bicarb 23. BUN 46. Creatinine 2.67. Glucose 164. He well with the incentive spirometer. He remains on bronchodilators. Heparin for DVT prophylaxis. Currently in a regular rhythm. The patient is seen today 12/03/2022 in follow-up on the selective care unit. He is currently sitting up in a chair at the bedside. Awake and alert in no acute distress. Maintaining good O2 saturations in the 90s on room air. No IV fluids. Asked x-ray reveals no evidence of pleural effusion, focal consolidation or pneumothorax. White count 12.3. Hemoglobin 8.5. Platelets 200,000. Sodium 134. Potassium 5.2. Bicarb 20. BUN 53. Creatinine 2.47. Glucose 2:15. Remains in sinus rhythm. Heparin for DVT prophylaxis. Objective - Vital Signs Vital signs: Vital Signs Temp 98 F 12/03/22 08:35 Pulse 75 12/03/22 08:35 Resp 20 12/03/22 08:35 BP 131/59 12/03/22 08:35 Pulse Ox 91 L 12/03/22 09:24 FiO2 6 11/29/22 18:40 Intake & Output 12/02/22 12/03/22 12/03/22 18:59 06:59 18:59 Intake Total 100 10 Output Total 900 Balance 100 -890 Weight 82.2 kg Intake: IV 10 Invasive Line 5 10 Intake, IV Titration 100 Amount Sodium Ferric Gluconat- 100 Sucrose 125 mg In Sodium Chloride 0.9% 100 ml @ 100 mls/hr IVPB DAILY [facility] Rx#:[id number] Output: Urine 900 Other: Voiding Method Toilet Toilet Toilet # Voids 4 # Bowel Movements 2 1 ABP, PAP, CO, CI - Last Documented Arterial Blood Pressure 159/56 Pulmonary Artery Pressure 34/6 Cardiac Output 5 Cardiac Index 2.4 - Exam GENERAL EXAM: Alert, pleasant 77-year-old male patient, on room air, comfortable in no apparent distress. HEAD: Normocephalic. EYES: Brisk reaction of pupils, equal size. NOSE: Clear with pink turbinates. THROAT: No erythema or exudates. NECK: No masses, no JVD. CHEST: Sternal dressing dry and intact. Heart Hugger in place LUNGS: Equal air entry with crackles in the left base. CVS: S1 and S2 normal with no audible murmur, regular rhythm. ABDOMEN: No hepatosplenomegaly, hypoactive bowel sounds, no guarding or ri gidity. SPINE: No scoliosis or deformity SKIN: No rashes CENTRAL NERVOUS SYSTEM: Sedated, tone is normal in all 4 extremities. EXTREMITIES: Rayray wrap to bilateral lower extremities. There is trace peripheral edema. Peripheral pulses are intact. - Labs CBC & Chem 7: 12/03/22 08:51 12/03/22 08:51 Labs: Abnormal Lab Results - Last 24 Hours (Table) 12/02/22 12/02/22 12/02/22 Range/Units 16:40 21:19 21:35 WBC (3.8-10.6) k/uL RBC (4.30-5.90) m/uL Hgb (13.0-17.5) gm/dL Hct (39.0-53.0) % Sodium (137-145) mmol/L Potassium (3.5-5.1) mmol/L Carbon Dioxide (22-30) mmol/L BUN (9-20) mg/dL Creatinine (0.66-1.25) mg/dL Glucose (74-99) mg/dL POC Glucose (mg/dL) 189 H 69 L 58 L (70-110) mg/dL Calcium (8.4-10.2) mg/dL 12/03/22 12/03/22 12/03/22 Range/Units 00:38 06:40 08:51 WBC 12.3 H (3.8-10.6) k/uL RBC 2.66 L (4.30-5.90) m/uL Hgb 8.5 L (13.0-17.5) gm/dL Hct 26.1 L (39.0-53.0) % Sodium (137-145) mmol/L Potassium (3.5-5.1) mmol/L Carbon Dioxide (22-30) mmol/L BUN (9-20) mg/dL Creatinine (0.66-1.25) mg/dL Glucose (74-99) mg/dL POC Glucose (mg/dL) 227 H 159 H (70-110) mg/dL Calcium (8.4-10.2) mg/dL 12/03/22 12/03/22 Range/Units 08:51 11:31 WBC (3.8-10.6) k/uL RBC (4.30-5.90) m/uL Hgb (13.0-17.5) gm/dL Hct (39.0-53.0) % Sodium 134 L (137-145) mmol/L Potassium 5.2 H (3.5-5.1) mmol/L Carbon Dioxide 20 L (22-30) mmol/L BUN 53 H (9-20) mg/dL Creatinine 2.47 H (0.66-1.25) mg/dL Glucose 215 H (74-99) mg/dL POC Glucose (mg/dL) 220 H (70-110) mg/dL Calcium 8.2 L (8.4-10.2) mg/dL Assessment and Plan Assessment: Significant triple-vessel coronary artery disease. Status post coronary artery bypass grafting utilizing a ALMEIDA to the LAD, saphenous vein graft to the PDA, left radial artery as to the OM and ligation of left atrial appendage with AtriCure clip. Postoperative day #4 Former smoker Diabetes mellitus Hypertension Hypothyroidism History of seizures History of COVID-19 infection 3 Plan: The patient was seen and evaluated Chest x-ray, labs and medications reviewed Increase his activity as tolerated Continue the incentive spirometer Heparin for DVT prophylaxis Home once cleared by CT services I have personally seen and examined the patient, performed the documentation and the assessment and plan as written. Number of minutes spent on the visit: 10.
--- NOTE | 2022-12-03 12:57 | P.PN ---
Subjective Progress Note Date: 12/03/22 Subjective: Patient seen and examined at bedside. He was slightly hypoglycemic overnight. Insulin was held. Per nursing, patient is quite anxious. He denies any significant chest pain, shortness of breath, abdominal pain, nausea, vomiting, diarrhea, constipation, or urinary complaints. He claims that he continues to make urine. He did have urinary tract infection treated prior to surgery. Pertinent positives and negatives as discussed above, a complete review of systems was performed and all other systems are negative. Vitals Signs Reviewed. General: nontoxic, no distress, appears at stated age Derm: warm, dry, sternal dressing appears clean, dry, intact Head: atraumatic, normocephalic, symmetric Eyes: EOMI, no lid lag, anicteric sclera Mouth: no lip lesion, mucus membranes moist Cardiovascular: S1S2 reg, no murmur Lungs: Decreased bilateral breath sounds at the bases , no accessory muscle use Abdominal: soft, nontender to palpation, no guarding, no appreciable organomegaly Ext: no gross muscle atrophy, no edema, no contractures Neuro: CN II-XI grossly intact, no focal neuro deficits Psych: Alert, oriented, appropriate affect Data Reviewed Today: Pertinent Labs: WBC 12.3, hemoglobin 8.5, sodium 134, potassium 5.2, BUN 53, creatinine 2.47, blood sugar ranged between 87-227 Imaging: Chest x-ray independently interpreted, no opacities Renal ultrasound report reviewed: Right renal cortical cyst, no evidence of solid renal mass or obstruction Assessment and Plan: 77-year-old male with hypertension, CKD, [id number]-[id number] diabetes, and hypothyroidism admitted for off pump CABG 3 including ligation of the left atrial appendage. Active: Qoj-otysfiu-eauamzwof Diabetes mellitus type 2 with hyperglycemia Status post CABG and ligation of left atrial appendage Acute hypoxic respiratory failure, anticipated outcome of surgery Acute blood loss anemia, anticipated outcome of surgery Acute on Chronic kidney disease stage III, nonoliguric Hyperkalemia Cardiomyopathy with ejection fraction 45-50% Leukocytosis, reactive Anxiety -Patient had an episode of hypoglycemia likely also in the setting of acute renal failure, insulin regimen changed to 15 units Levemir at night, and sliding scale insulin, pre-meal insulin discontinued for now -Patient to be placed on Jardiance upon discharge -For iron deficiency anemia, patient receiving IV iron 3 doses, last dose on 12/04 -Renal function slowly improving, renal ultrasound was unremarkable -Continues to remain hyperkalemia, 30 g of oral Kayexalate ordered, BMP tomorrow -Cardiology note reviewed: No new changes -Cardiothoracic note reviewed: Possible discharge in the next 24 hours -Patient given hydroxyzine 50 mg once for anxiety Chronic: Dyslipidemia Hypertension Hypothyroidism DVT ppx: Subcu heparin Thank you for allowing us to participate in the care of this pleasant patient. Do not hesitate to contact us with questions. Someone can be reached from the [facility] hospitalist group all hours of the day at [phone] or via [employer] Objective - Vital Signs Vital signs: Vital Signs Temp 97.1 F L 12/03/22 12:40 Pulse 68 12/03/22 12:40 Resp 18 12/03/22 12:40 BP 140/63 12/03/22 12:40 Pulse Ox 91 L 12/03/22 12:40 FiO2 6 11/29/22 18:40 Intake & Output 12/02/22 12/03/22 12/03/22 18:59 06:59 18:59 Intake Total 100 10 Output Total 900 Balance 100 -890 Weight 82.2 kg Intake: IV 10 Invasive Line 5 10 Intake, IV Titration 100 Amount Sodium Ferric Gluconat- 100 Sucrose 125 mg In Sodium Chloride 0.9% 100 ml @ 100 mls/hr IVPB DAILY [facility] Rx#:[id number] Output: Urine 900 Other: Voiding Method Toilet Toilet Toilet # Voids 4 # Bowel Movements 2 1 ABP, PAP, CO, CI - Last Documented Arterial Blood Pressure 159/56 Pulmonary Artery Pressure 34/6 Cardiac Output 5 Cardiac Index 2.4 - Labs CBC & Chem 7: 12/03/22 08:51 12/03/22 08:51 Labs: Abnormal Lab Results - Last 24 Hours (Table) 12/02/22 12/02/22 12/02/22 Range/Units 16:40 21:19 21:35 WBC (3.8-10.6) k/uL RBC (4.30-5.90) m/uL Hgb (13.0-17.5) gm/dL Hct (39.0-53.0) % Sodium (137-145) mmol/L Potassium (3.5-5.1) mmol/L Carbon Dioxide (22-30) mmol/L BUN (9-20) mg/dL Creatinine (0.66-1.25) mg/dL Glucose (74-99) mg/dL POC Glucose (mg/dL) 189 H 69 L 58 L (70-110) mg/dL Calcium (8.4-10.2) mg/dL 12/03/22 12/03/22 12/03/22 Range/Units 00:38 06:40 08:51 WBC 12.3 H (3.8-10.6) k/uL RBC 2.66 L (4.30-5.90) m/uL Hgb 8.5 L (13.0-17.5) gm/dL Hct 26.1 L (39.0-53.0) % Sodium (137-145) mmol/L Potassium (3.5-5.1) mmol/L Carbon Dioxide (22-30) mmol/L BUN (9-20) mg/dL Creatinine (0.66-1.25) mg/dL Glucose (74-99) mg/dL POC Glucose (mg/dL) 227 H 159 H (70-110) mg/dL Calcium (8.4-10.2) mg/dL 12/03/22 12/03/22 Range/Units 08:51 11:31 WBC (3.8-10.6) k/uL RBC (4.30-5.90) m/uL Hgb (13.0-17.5) gm/dL Hct (39.0-53.0) % Sodium 134 L (137-145) mmol/L Potassium 5.2 H (3.5-5.1) mmol/L Carbon Dioxide 20 L (22-30) mmol/L BUN 53 H (9-20) mg/dL Creatinine 2.47 H (0.66-1.25) mg/dL Glucose 215 H (74-99) mg/dL POC Glucose (mg/dL) 220 H (70-110) mg/dL Calcium 8.2 L (8.4-10.2) mg/dL
[2022-12-03 16:36] LABS: Glucose,Whole Blood 200 mg/dL (70-110)
[2022-12-03] MEDS: ACETAMINOPHEN TAB 500 MG TAB PO PRN ×2 (17:39→23:23)
[2022-12-03 20:38] LABS: Glucose,Whole Blood 172 mg/dL (70-110)
[2022-12-03] MEDS: INSULIN DETEMIR (LEVEMIR) 100 UNIT/ML SYR SQ SCH (20:41)
[2022-12-03] MEDS: SENNOSIDES-DOCUSATE SODIUM 1 EACH TAB PO SCH (20:41)
[2022-12-04 05:33] LABS: HCT 23.5 % (39.0-53.0); HGB 7.7 gm/dL (13.0-17.5); MCH 30.9 pg (25.0-35.0); MCHC 32.7 g/dL (31.0-37.0); MCV 94.3 fL (80.0-100.0); Mean Platelet Volume 9.2; Platelet Count 242 k/uL (150-450); RDW 15.6 % (11.5-15.5); WBC 8.3 k/uL (3.8-10.6)
[2022-12-04 05:59] LABS: Albumin 2.9 g/dL (3.5-5.0); Calcium 8.2 mg/dL (8.4-10.2); Potassium 4.6 mmol/L (3.5-5.1); Total Bilirubin 0.7 mg/dL (0.2-1.3); Total Protein 5.1 g/dL (6.3-8.2)
[2022-12-04 06:15] LABS: Glucose,Whole Blood 94 mg/dL (70-110)
[2022-12-04] MEDS: INSULIN ASPART (NovoLOG) 100 UNIT/ML VIAL SQ SCH ×4 (06:18→21:06)
[2022-12-04] MEDS: FERROUS SULFATE 325 MG TAB PO SCH (06:29)
[2022-12-04] MEDS: PANTOPRAZOLE 40 MG TABLET PO SCH (06:29)
[2022-12-04] MEDS: LEVOTHYROXINE 50 MCG TAB PO SCH (06:29)
[2022-12-04] MEDS: ACETAMINOPHEN TAB 500 MG TAB PO PRN ×3 (06:29→23:18)
[2022-12-04] MEDS: ALBUTEROL HFA INHALER INHALATION SCH ×4 (07:57→20:04)
[2022-12-04] MEDS: TIOTROPIUM 2.5 MCG INHALER INHALATION SCH (07:57)
--- NOTE | 2022-12-04 08:28 | XR ---
EXAMINATION TYPE: XR chest 1V portable DATE OF EXAM: 12/04/2022 COMPARISON: 12/03/2022 HISTORY: Postoperative CABG TECHNIQUE: Single frontal view of the chest is obtained. FINDINGS: Heart is enlarged and is postsurgical change with no sizable pneumothorax. Bilateral infil trate and small effusion. No overt failure. IMPRESSION: Cardiomegaly with bilateral infiltrate and small effusion. Findings stable.
[2022-12-04] MEDS: ATORVASTATIN 40 MG TAB PO SCH (08:59)
[2022-12-04] MEDS: ASPIRIN 325 MG TAB PO SCH (08:59)
[2022-12-04] MEDS: CHOLECALCIFEROL 25 MCG (1000 IU) TABLET PO SCH (08:59)
[2022-12-04] MEDS: METOPROLOL TARTRATE 25 MG TAB PO SCH ×2 (08:59→21:06)
[2022-12-04] MEDS: AMIODARONE 200 MG TAB PO SCH ×2 (08:59→21:06)
[2022-12-04] MEDS: DILTIAZEM CD 120 MG CAP.ER.24H PO SCH (08:59)
[2022-12-04] MEDS: ZINC SULFATE 220 MG CAP PO SCH (08:59)
[2022-12-04] MEDS: CLOPIDOGREL 75 MG TAB PO SCH (08:59)
[2022-12-04] MEDS: hydrALAZINE HCL 25 MG TAB PO SCH ×2 (08:59→21:06)
[2022-12-04] MEDS: SODIUM FERRIC GLUCONAT-SUCROSE 125 MG in SODIUM CHLORIDE 0.9% 100 ML IVPB SCH (09:00)
[2022-12-04] MEDS: HEPARIN SODIUM,PORCINE/PF 5,000 UNIT/0.5 ML SYRINGE SQ SCH ×3 (09:03→23:18)
[2022-12-04 11:35] LABS: Glucose,Whole Blood 134 mg/dL (70-110)
--- NOTE | 2022-12-04 12:12 | P.PN ---
Subjective Progress Note Date: 12/04/22 Subjective: Patient seen and examined at bedside. He denies any significant chest pain, s hortness of breath, abdominal pain, nausea, vomiting, diarrhea, constipation, or urinary complaints. He claims that he continues to make urine. Pertinent positives and negatives as discussed above, a complete review of systems was performed and all other systems are negative. Vitals Signs Reviewed. General: nontoxic, no distress, appears at stated age Derm: warm, dry, sternal dressing appears clean, dry, intact Head: atraumatic, normocephalic, symmetric Eyes: EOMI, no lid lag, anicteric sclera Mouth: no lip lesion, mucus membranes moist Cardiovascular: S1S2 reg, no murmur Lungs: Decreased bilateral breath sounds at the bases , no accessory muscle use Abdominal: soft, nontender to palpation, no guarding, no appreciable organomegaly Ext: no gross muscle atrophy, no edema, no contractures Neuro: CN II-XI grossly intact, no focal neuro deficits Psych: Alert, oriented, appropriate affect Data Reviewed Today: Pertinent Labs: WBC 8.3, hemoglobin 7.7, sodium 137, potassium 4.6, BUN 47, creatinine 2.49, blood sugar ranged between 94-200 Imaging: Chest x-ray independently interpreted, no obvious opacities Assessment and Plan: 77-year-old male with hypertension, CKD, qsv-oyscubx-vgljbvndf diabetes, and hypothyroidism admitted for off pump CABG 3 including ligation of the left atrial appendage. Active: Bdf-luravxa-kemjjndin Diabetes mellitus type 2 with hyperglycemia Status post CABG and ligation of left atrial appendage Acute blood loss anemia, anticipated outcome of surgery Acute on Chronic kidney disease stage III, nonoliguric Cardiomyopathy with ejection fraction 45-50% -Continue current insulin regimen with 15 units Levemir at night, and sliding scale insulin -Patient to be placed on Jardiance upon discharge -For iron deficiency anemia, patient receiving IV iron 3 doses, last dose today -Hemoglobin slowly down trending, no active bleed -Renal function stable, making urine -Cardiology, cardiothoracic, pulmonology following Resolved: Acute hypoxic respiratory failure, anticipated outcome of surgery Hyperkalemia Reactive leukocytosis Chronic: Dyslipidemia Hypertension Hypothyroidism DVT ppx: Subcu heparin Thank you for allowing us to participate in the care of this pleasant patient. Do not hesitate to contact us with questions. Someone can be reached from the [facility] hospitalist group all hours of the day at [phone] or via [employer]. Objective - Vital Signs Vital signs: Vital Signs Temp 98.1 F 12/04/22 11:17 Pulse 84 12/04/22 11:17 Resp 18 12/04/22 11:17 BP 118/58 12/04/22 11:17 Pulse Ox 92 L 12/04/22 11:17 FiO2 6 11/29/22 18:40 Intake & Output 12/03/22 12/04/22 12/04/22 18:59 06:59 18:59 Intake Total 580 540 118 Output Total 200 1000 400 Balance 934 -843 -613 Intake: Intake, IV Titration 100 Amount Sodium Ferric Gluconat- 100 Sucrose 125 mg In Sodium Chloride 0.9% 100 ml @ 100 mls/hr IVPB DAILY [facility] Rx#:[id number] Oral 480 540 118 Output: Urine 200 1000 400 Other: Voiding Method Toilet Toilet Toilet # Voids 1 ABP, PAP, CO, CI - Last Documented Arterial Blood Pressure 159/56 Pulmonary Artery Pressure 34/6 Cardiac Output 5 Cardiac Index 2.4 - Labs CBC & Chem 7: 12/04/22 04:42 12/04/22 04:42 Labs: Abnormal Lab Results - Last 24 Hours (Table) 12/03/22 12/03/22 12/04/22 Range/Units 16:35 20:36 04:42 RBC 2.50 L (4.30-5.90) m/uL Hgb 7.7 L (13.0-17.5) gm/dL Hct 23.5 L (39.0-53.0) % RDW 15.6 H (11.5-15.5) % BUN (9-20) mg/dL Creatinine (0.66-1.25) mg/dL POC Glucose (mg/dL) 200 H 172 H (70-110) mg/dL Calcium (8.4-10.2) mg/dL Total Protein (6.3-8.2) g/dL Albumin (3.5-5.0) g/dL 12/04/22 12/04/22 Range/Units 04:42 11:33 RBC (4.30-5.90) m/uL Hgb (13.0-17.5) gm/dL Hct (39.0-53.0) % RDW (11.5-15.5) % BUN 47 H (9-20) mg/dL Creatinine 2.49 H (0.66-1.25) mg/dL POC Glucose (mg/dL) 134 H (70-110) mg/dL Calcium 8.2 L (8.4-10.2) mg/dL Total Protein 5.1 L (6.3-8.2) g/dL Albumin 2.9 L (3.5-5.0) g/dL
--- NOTE | 2022-12-04 12:16 | P.PN ---
Subjective Progress Note Date: 12/04/22 On today's evaluation 12/04/2022, the patient is doing well. The patient is currently on room air oxygen. The patient's postop day #5 following bypass surgery. The patient has a stable sternum which is dry clean and intact. All of the chest was removed. The patient currently doing well using incentive spirometer. On today's evaluation, the blood work is showing a WBC count of 8.3 with a hemoglobin of 7.7 and a platelet count of 242. Creatinine stable at 2.4 as the patient developed an acute kidney injury yet stable since yesterday with a BUN of 47 and a creatinine of 2.4. The patient also has also a sodium level of 137 with a potassium level of 4.6. Patient is on Levemir insulin 15 units and sliding scale coverage. The patient's on accommodation of aspirin and Plavix. The patient is also on metoprolol 25 mg by mouth twice a day. Patient is on Lipitor 40 mg on a daily basis. The chest x-ray from today showing some cardiomegaly and small effusion. The findings of essentially stable. Objective - Vital Signs Vital signs: Vital Signs Temp 98.1 F 12/04/22 11:17 Pulse 84 12/04/22 11:17 Resp 18 12/04/22 11:17 BP 118/58 12/04/22 11:17 Pulse Ox 92 L 12/04/22 11:17 FiO2 6 11/29/22 18:40 Intake & Output 12/03/22 12/04/22 12/04/22 18:59 06:59 18:59 Intake Total 580 540 118 Output Total 200 1000 400 Balance 380 -493 -323 Intake: Intake, IV Titration 100 Amount Sodium Ferric Gluconat- 100 Sucrose 125 mg In Sodium Chloride 0.9% 100 ml @ 100 mls/hr IVPB DAILY [facility] Rx#:[id number] Oral 480 540 118 Output: Urine 200 1000 400 Other: Voiding Method Toilet Toilet Toilet # Voids 1 ABP, PAP, CO, CI - Last Documented Arterial Blood Pressure 159/56 Pulmonary Artery Pressure 34/6 Cardiac Output 5 Cardiac Index 2.4 - Exam GENERAL EXAM: Alert, pleasant 77-year-old male patient, on room air, comfortable in no apparent distress. HEAD: Normocephalic. EYES: Brisk reaction of pupils, equal size. NOSE: Clear with pink turbinates. THROAT: No erythema or exudates. NECK: No masses, no JVD. CHEST: Sternal dressing dry and intact. Heart Hugger in place LUNGS: Equal air entry with crackles in the left base. CVS: S1 and S2 normal with no audible murmur, regular rhythm. ABDOMEN: No hepatosplenomegaly, hypoactive bowel sounds, no guarding or rigidity. SPINE: No scoliosis or deformity SKIN: No rashes CENTRAL NERVOUS SYSTEM: Sedated, tone is normal in all 4 extremities. EXTREMITIES: Rayray wrap to bilateral lower extremities. There is trace peripheral edema. Peripheral pulses are intact. - Labs CBC & Chem 7: 12/04/22 04:42 12/04/22 04:42 Labs: Abnormal Lab Results - Last 24 Hours (Table) 12/03/22 12/03/22 12/04/22 Range/Units 16:35 20:36 04:42 RBC 2.50 L (4.30-5.90) m/uL Hgb 7.7 L (13.0-17.5) gm/dL Hct 23.5 L (39.0-53.0) % RDW 15.6 H (11.5-15.5) % BUN (9-20) mg/dL Creatinine (0.66-1.25) mg/dL POC Glucose (mg/dL) 200 H 172 H (70-110) mg/dL Calcium (8.4-10.2) mg/dL Total Protein (6.3-8.2) g/dL Albumin (3.5-5.0) g/dL 12/04/22 12/04/22 Range/Units 04:42 11:33 RBC (4.30-5.90) m/uL Hgb (13.0-17.5) gm/dL Hct (39.0-53.0) % RDW (11.5-15.5) % BUN 47 H (9-20) mg/dL Creatinine 2.49 H (0.66-1.25) mg/dL POC Glucose (mg/dL) 134 H (70-110) mg/dL Calcium 8.2 L (8.4-10.2) mg/dL Total Protein 5.1 L (6.3-8.2) g/dL Albumin 2.9 L (3.5-5.0) g/dL Assessment and Plan Plan: Significant triple-vessel coronary artery disease. Status post coronary artery bypass grafting utilizing a ALMEIDA to the LAD, saphenous vein graft to the PDA, left radial artery as to the OM and ligation of left atrial appendage with AtriCure clip. Postoperative day #5 Former smoker Diabetes mellitus CKD stage 3 Hypertension Hypothyroidism History of seizures History of COVID-19 infection 3 Plan: Chest x-ray findings are stable and the patient is currently on room air oxygen. Continue aspirin and Plavix Continue metoprolol twice a day 25 mg Monitor Cr Levemir insulin Increase his activity as tolerated Continue the incentive spirometer Heparin for DVT prophylaxis Home once cleared by CT services
--- NOTE | 2022-12-04 13:10 | P.PN ---
Subjective Progress Note Date: 12/04/22 Principal diagnosis: Coronary artery disease. Previous medical history of hypertension, hyperlipidemia, acv-xegltee-laudtqvlx diabetes, hypothyroid, previous tobacco dependence, remote history of pneumonia POD #5 off-pump coronary artery bypass graft 3 with left internal mammary artery to the left anterior descending artery, left radial artery graft to the obtuse marginal artery, reverse saphenous vein graft to the posterior descending artery, endovascular vein harvest from the left thigh, left endovascular radial artery harvest and ligation of left atrial appendage with a 35 mm Atricure clip The patient was seen and examined sitting up in a recliner on the cardiac st epdown unit in no acute. Very sleepy today, states he did not get a lot of sleep last night. Does complain of post surgical pain which is controlled on current medication regimen, denies shortness of breath. Remains in sinus rhythm, hemodynamically stable. Currently on room air with oxygen saturation in the mid 90s, able to achieve 1000 mL on incentive spirometry. Labs and CXR reviewed. No other new concerns. Objective - Vital Signs Vital signs: Vital Signs Temp 98.1 F 12/04/22 11:17 Pulse 84 12/04/22 11:17 Resp 18 12/04/22 11:17 BP 118/58 12/04/22 11:17 Pulse Ox 92 L 12/04/22 11:17 FiO2 6 11/29/22 18:40 Intake & Output 12/03/22 12/04/22 12/04/22 18:59 06:59 18:59 Intake Total 580 540 118 Output Total 200 1000 400 Balance 925 -737 -324 Intake: Intake, IV Titration 100 Amount Sodium Ferric Gluconat- 100 Sucrose 125 mg In Sodium Chloride 0.9% 100 ml @ 100 mls/hr IVPB DAILY [facility] Rx#:[id number] Oral 480 540 118 Output: Urine 200 1000 400 Other: Voiding Method Toilet Toilet Toilet # Voids 1 ABP, PAP, CO, CI - Last Documented Arterial Blood Pressure 159/56 Pulmonary Artery Pressure 34/6 Cardiac Output 5 Cardiac Index 2.4 - Exam CONSTITUTIONAL: Appears comfortable, cooperative, no acute distress RESPIRATORY: Lungs sounds diminished bilaterally. Respirations even, nonlabored. Currently on room air with oxygen saturation 94%. Able to achieve 1000 mL on incentive spirometry. Weak cough. CARDIOVASCULAR: S1, S2 present. Regular rate and rhythm, sinus rhythm on telemetry. Sternum stable. Palpable peripheral pulses bilaterally. No edema present. No calf pain or tenderness noted. Heart hugger in place with patient demonstrating appropriate use. Antiembolism stockings, SCDs present. GASTROINTESTINAL: Abdomen soft, nontender, nondistended. Active bowel sounds present 4 quadrants. Tolerating diet. Positive bowel movement 3/5 GENITOURINARY: She needs to void clear, yellow urine. Output 1200 mL in the last 24 hours INTEGUMENTARY: Skin is warm and dry with evidence of good perfusion. Anterior chest incision well approximated. Left lower extremity EVH site, left radial artery harvest site well approximated without redness or drainage. NEUROLOGIC: Cranial nerves II through XII intact MUSKULOSKELETAL: Able to move all extremities, strength equal bilaterally, gait normal PSYCHIATRIC: Alert and oriented to person place and time, appropriate affect, intact judgment and insight - Allied health notes Allied health notes reviewed: nursing - Labs CBC & Chem 7: 12/04/22 04:42 12/04/22 04:42 Labs: Abnormal Lab Results - Last 24 Hours (Table) 12/03/22 12/03/22 12/04/22 Range/Units 16:35 20:36 04:42 RBC 2.50 L (4.30-5.90) m/uL Hgb 7.7 L (13.0-17.5) gm/dL Hct 23.5 L (39.0-53.0) % RDW 15.6 H (11.5-15.5) % BUN (9-20) mg/dL Creatinine (0.66-1.25) mg/dL POC Glucose (mg/dL) 200 H 172 H (70-110) mg/dL Calcium (8.4-10.2) mg/dL Total Protein (6.3-8.2) g/dL Albumin (3.5-5.0) g/dL 12/04/22 12/04/22 Range/Units 04:42 11:33 RBC (4.30-5.90) m/uL Hgb (13.0-17.5) gm/dL Hct (39.0-53.0) % RDW (11.5-15.5) % BUN 47 H (9-20) mg/dL Creatinine 2.49 H (0.66-1.25) mg/dL POC Glucose (mg/dL) 134 H (70-110) mg/dL Calcium 8.2 L (8.4-10.2) mg/dL Total Protein 5.1 L (6.3-8.2) g/dL Albumin 2.9 L (3.5-5.0) g/dL - Imaging and Cardiology Chest x-ray: report reviewed, image reviewed Assessment and Plan Assessment: 1. Coronary artery disease, status post 3V off pump cabg 2. Mildly reduced LV function, EF 45-50% 3. History of hypertension 4. Hyperlipidemia, treated, chol 177, LDL 91, trig 257 5. Vcv-mrlfzkp-ovfjprtdt diabetes, hgbAIc 7.8% 6. Previous tobacco dependence, preoperative FEV1 83% 7. Remote history of pneumonia 8. Hypothyroid 9. Chronic kidney disease stage III 10. Prior history of Covid, vaccinated and boosted 11. Family history of CAD Plan: 1. Continue to maximize medical therapy with ASA, plavix, statin, beta louis. Will increase beta louis as tolerated. Hydralazine added for afterload re duction 2. Continue CCB for radial artery spasm prophylaxis 3. Continue amio for afib prophylaxis 4. Encourage incentive spirometer 10 times every hour while awake. Bronchodilators per pulmonology 5. Increase activity as tolerated. PT/OT/cardiac rehab following 6. Will monitor labs, CXR. Electrolyte replacement per protocol 7. GI/DVT prophylaxis 8. Pain control per current medication regimen. No Toradol due to chronic kidney disease 9. Insulin management per internal medicine 10. Shower daily 11. Daily weights, strict accurate intake and output 12. Discharge planning in progress. Anticipate discharge to home with home care later today versus tomorrow morning 13. More recommendations to follow
--- NOTE | 2022-12-04 14:16 | P.PN ---
Subjective Progress Note Date: 12/04/22 HISTORY OF PRESENT ILLNESS: This is a 77-year-old gentleman with a past medical history significant for coronary artery disease documented on recent heart catheterization which he was diagnosed with severe triple-vessel CAD after an echocardiogram came in to be abnormal showing mild cardiomyopathy was evidence of foreign motion abnormalities concerning for severe CAD as well as history of diabetes and hypertension and dyslipidemia and chronic kidney disease. We consulted to see the patient for cardiac evaluation after her open-heart surgery. Apparently he was admitted to the hospital yesterday and underwent CABG 3 with ALMEIDA to LAD and left radial to obtuse marginal branch and SVG to RCA. He was extubated yesterday. This is postoperative patient day #2. The patient overall seems to be stable from a cardiac vascular standpoint of view. He has been maintaining normal sinus mechanism. Currently he is on Cardizem IV for the radial graft and he is in process to be switched into Cardizem by mouth. Beside that he is on dual antiplatelet therapy and he is on intermediate intensity statin. Urine output has been within normal limits. The blood pressure has been normal and somewhat on the soft side. I did review his a blood work from the morning and that revealed stable hemoglobin with a creatinine of 1.68 and he is known to have stage III chronic kidney disease. The chest x-ray also was reviewed mild pulmonary vascular congestion December [id number] The patient was seen and evaluated this morning. Overall he is stable and has been maintaining normal sinus mechanism. Urine output is stable. Hemoglobin is stable. The chest x-ray showed small pleural effusion and he is in process of getting a dose of Lasix. His kidney function is a slightly worse but he does have chronic kidney disease. December 022022 The patient was seen this morning. He remains stable from a cardiovascular standpoint of view. He remains in sinus mechanism. We don't have a blood work as of this morning. Hemodynamically he is stable. He is on maximize medical treatment. December 032022 The patient was seen this morning. He remains stable from a cardiovascular standpoint of view. The pressure and heart rate have been within normal limits. His potassium was slightly elevated today but no with potassium as of yet. His kidney function also was slightly worse yesterday still waiting for the blood work. He states "I feel fine". Examination he is euvolemic with clear breathing sounds bilaterally and no lower extremities 12/04/2022 Patient examined this morning. He is sitting up in the chair. Patient denies chest pain or pressure. He denies shortness of breath. Patient states he has been up ambulating to the bathroom without difficulty. Vital signs are stable. PHYSICAL EXAM: VITAL SIGNS: Reviewed. GENERAL: Well-developed in no acute distress. NECK: Supple. No JVD or thyromegaly LUNGS: Respirations even and unlabored. Lungs essentially clear to auscultation bilaterally. HEART: Regular rate and rhythm. S1 and S2 heard. EXTREMITIES: Normal range of motion. No clubbing or cyanosis. Peripheral pulses intact. No lower extremity edema ASSESSMENT: Triple-vessel coronary artery disease, status post CABG 3 Mild cardiomyopathy, EF 45-50% Hypertension Hyperlipidemia Chronic kidney disease Diabetes Former nicotine dependence PLAN: Continue current cardiac medications Continue postoperative management per CT surgery Increase activity as tolerated Encourage use of incentive spirometer Patient to follow-up post discharge with Dr. Bower Further recommendations pending patient course Nurse practitioner note has been reviewed by physician. Signing provider agrees with the documented findings, assessment, and plan of care. Objective - Vital Signs Vital signs: Vital Signs Temp 98.1 F 12/04/22 11:17 Pulse 84 12/04/22 11:17 Resp 18 12/04/22 11:17 BP 118/58 12/04/22 11:17 Pulse Ox 92 L 12/04/22 11:17 FiO2 6 11/29/22 18:40 Intake & Output 12/03/22 12/04/22 12/04/22 18:59 06:59 18:59 Intake Total 580 540 118 Output Total 200 1000 400 Balance 380 460 -282 Intake: Intake, IV Titration 100 Amount Sodium Ferric Gluconat- 100 Sucrose 125 mg In Sodium Chloride 0.9% 100 ml @ 100 mls/hr IVPB DAILY [facility] Rx#:[id number] Oral 480 540 118 Output: Urine 200 1000 400 Other: Voiding Method Toilet Toilet Toilet # Voids 1 ABP, PAP, CO, CI - Last Documented Arterial Blood Pressure 159/56 Pulmonary Artery Pressure 34/6 Cardiac Output 5 Cardiac Index 2.4 - Labs CBC & Chem 7: 12/04/22 04:42 12/04/22 04:42 Labs: Abnormal Lab Results - Last 24 Hours (Table) 12/03/22 12/03/22 12/04/22 Range/Units 16:35 20:36 04:42 RBC 2.50 L (4.30-5.90) m/uL Hgb 7.7 L (13.0-17.5) gm/dL Hct 23.5 L (39.0-53.0) % RDW 15.6 H (11.5-15.5) % BUN (9-20) mg/dL Creatinine (0.66-1.25) mg/dL POC Glucose (mg/dL) 200 H 172 H (70-110) mg/dL Calcium (8.4-10.2) mg/dL Total Protein (6.3-8.2) g/dL Albumin (3.5-5.0) g/dL 12/04/22 12/04/22 Range/Units 04:42 11:33 RBC (4.30-5.90) m/uL Hgb (13.0-17.5) gm/dL Hct (39.0-53.0) % RDW (11.5-15.5) % BUN 47 H (9-20) mg/dL Creatinine 2.49 H (0.66-1.25) mg/dL POC Glucose (mg/dL) 134 H (70-110) mg/dL Calcium 8.2 L (8.4-10.2) mg/dL Total Protein 5.1 L (6.3-8.2) g/dL Albumin 2.9 L (3.5-5.0) g/dL
[2022-12-04 16:18] LABS: Glucose,Whole Blood 530 mg/dL (70-110)
[2022-12-04 16:18] LABS: Glucose,Whole Blood 245 mg/dL (70-110)
[2022-12-04 20:33] LABS: Glucose,Whole Blood 171 mg/dL (70-110)
[2022-12-04] MEDS: INSULIN DETEMIR (LEVEMIR) 100 UNIT/ML SYR SQ SCH (21:06)
[2022-12-04] MEDS: SENNOSIDES-DOCUSATE SODIUM 1 EACH TAB PO SCH (21:07)
[2022-12-05 06:27] LABS: Glucose,Whole Blood 122 mg/dL (70-110)
[2022-12-05] MEDS: LEVOTHYROXINE 50 MCG TAB PO SCH (06:30)
[2022-12-05] MEDS: ACETAMINOPHEN TAB 500 MG TAB PO PRN (06:30)
[2022-12-05] MEDS: INSULIN ASPART (NovoLOG) 100 UNIT/ML VIAL SQ SCH ×2 (06:32→12:26)
[2022-12-05] MEDS: PANTOPRAZOLE 40 MG TABLET PO SCH (06:36)
--- NOTE | 2022-12-05 07:55 | XR ---
EXAMINATION TYPE: XR chest 2V DATE OF EXAM: 12/05/2022 COMPARISON: 12/04/2022 TECHNIQUE: PA and lateral views submitted. HISTORY: Postoperative CABG FINDINGS: Heart is enlarged and is postsurgical change with no sizable pneumothorax. Bilateral infiltrate and s mall effusion. No overt failure. Mild hyperexpansion could reflect underlying COPD. Hypertrophic and degenerative changes spine. IMPRESSION: 1. Postsurgical change with COPD. Bilateral infiltrate and small effusion stable..
[2022-12-05] MEDS: ALBUTEROL HFA INHALER INHALATION SCH ×3 (08:05→14:37)
[2022-12-05] MEDS: TIOTROPIUM 2.5 MCG INHALER INHALATION SCH (08:05)
[2022-12-05 09:20] VITALS: TEMP 96
[2022-12-05] MEDS: HEPARIN SODIUM,PORCINE/PF 5,000 UNIT/0.5 ML SYRINGE SQ SCH (09:20)
[2022-12-05] MEDS: ATORVASTATIN 40 MG TAB PO SCH (09:21)
[2022-12-05] MEDS: ASCORBIC ACID 500 MG TAB PO SCH (09:21)
[2022-12-05] MEDS: hydrALAZINE HCL 25 MG TAB PO SCH (09:21)
[2022-12-05] MEDS: CHOLECALCIFEROL 25 MCG (1000 IU) TABLET PO SCH (09:21)
[2022-12-05] MEDS: ZINC SULFATE 220 MG CAP PO SCH (09:21)
[2022-12-05] MEDS: CLOPIDOGREL 75 MG TAB PO SCH (09:21)
[2022-12-05] MEDS: AMIODARONE 200 MG TAB PO SCH (09:21)
[2022-12-05] MEDS: DILTIAZEM CD 120 MG CAP.ER.24H PO SCH (09:21)
[2022-12-05] MEDS: METOPROLOL TARTRATE 25 MG TAB PO SCH (09:21)
[2022-12-05] MEDS: ASPIRIN 325 MG TAB PO SCH (09:21)
[2022-12-05 10:13] LABS: Calcium 8.5 mg/dL (8.4-10.2); Magnesium 1.9 mg/dL (1.6-2.3); Potassium 4.3 mmol/L (3.5-5.1)
[2022-12-05 10:17] LABS: Anisocytosis Slight; HCT 26.2 % (39.0-53.0); HGB 8.4 gm/dL (13.0-17.5); MCH 31.5 pg (25.0-35.0); MCHC 32.3 g/dL (31.0-37.0); MCV 97.6 fL (80.0-100.0); Macrocytosis Slight; Mean Platelet Volume 8.3; Platelet Count 298 k/uL (150-450); RBC 2.68 m/uL (4.30-5.90); RDW 16.2 % (11.5-15.5); WBC 9.1 k/uL (3.8-10.6)
--- NOTE | 2022-12-05 11:10 | P.PN ---
Subjective Progress Note Date: 12/05/22 Subjective: Patient seen and examined at bedside. He denies any significant chest pain, shortness of breath, abdominal pain, nausea, vomiting, diarrhea, constipation, or urinary complaints. He claims that he continues to make urine. Pertinent positives and negatives as discussed above, a complete review of systems was performed and all other systems are negative. Vitals Signs Reviewed. General: nontoxic, no distress, appears at stated age Derm: warm, dry, sternal dressing appears clean, dry, intact Head: atraumatic, normocephalic, symmetric Eyes: EOMI, no lid lag, anicteric sclera Mouth: no lip lesion, mucus membranes moist Cardiovascular: S1S2 reg, no murmur Lungs: Decreased bilateral breath sounds at the bases , no accessory muscle use Abdominal: soft, nontender to palpation, no guarding, no appreciable organomegaly Ext: no gross muscle atrophy, no edema, no contractures Neuro: CN II-XI grossly intact, no focal neuro deficits Psych: Alert, oriented, appropriate affect Data Reviewed Today: Pertinent Labs: WBC 9.1, hemoglobin 8.4, BUN 44, creatinine 2.57, blood sugar ranged between 122-245 Imaging: Chest x-ray independently interpreted, no obvious opacities Assessment and Plan: 77-year-old male with hypertension, CKD, fvr-nmseqap-[id number] diabetes, and h ypothyroidism admitted for off pump CABG 3 including ligation of the left atrial appendage. Active: Ern-ecqfspt-ozplbywdj Diabetes mellitus type 2 with hyperglycemia Status post CABG and ligation of left atrial appendage Acute blood loss anemia, anticipated outcome of surgery Iron deficiency anemia - s/p IV iron Acute on Chronic kidney disease stage III, nonoliguric Cardiomyopathy with ejection fraction 45-50% -Continue current insulin regimen with 15 units Levemir at night, and sliding scale insulin while inpatient -Patient to be placed on Jardiance upon discharge -Personally discussed with cardiothoracic team, patient will likely be discharged in the afternoon today -Patient to see his PCP this week for repeat BMP and further adjustment with his oral antidiabetic medications -Renal function stable, making urine -Cardiology, cardiothoracic, pulmonology following Resolved: Acute hypoxic respiratory failure, anticipated outcome of surgery Hyperkalemia Reactive leukocytosis Chronic: Dyslipidemia Hypertension Hypothyroidism Patient is medically optimized for discharge home. Thank you for allowing us to participate in the care of this pleasant patient. Do not hesitate to contact us with questions. Someone can be reached from the [facility] hospitalist group all hours of the day at [phone] or via perfect serve. Objective - Vital Signs Vital signs: Vital Signs Temp 96.0 F L 12/05/22 09:19 Pulse 75 12/05/22 09:19 Resp 18 12/05/22 09:19 BP 142/67 12/05/22 09:19 Pulse Ox 94 L 12/05/22 09:19 FiO2 21 12/05/22 08:06 Intake & Output 12/04/22 12/05/22 12/05/22 18:59 06:59 18:59 Intake Total 1356 118 Output Total 800 Balance 556 118 Weight 80.5 kg Intake: Oral 1356 118 Output: Urine 800 Other: Voiding Method Toilet Toilet # Voids 4 # Bowel Movements 1 ABP, PAP, CO, CI - Last Documented Arterial Blood Pressure 159/56 Pulmonary Artery Pressure 34/6 Cardiac Output 5 Cardiac Index 2.4 - Labs CBC & Chem 7: 12/05/22 09:31 12/05/22 09:31 Labs: Abnormal Lab Results - Last 24 Hours (Table) 12/04/22 12/04/22 12/04/22 Range/Units 11:33 16:14 16:16 RBC (4.30-5.90) m/uL Hgb (13.0-17.5) gm/dL Hct (39.0-53.0) % RDW (11.5-15.5) % BUN (9-20) mg/dL Creatinine (0.66-1.25) mg/dL Glucose (74-99) mg/dL POC Glucose (mg/dL) 134 H 530 H 245 H (70-110) mg/dL 12/04/22 12/05/22 12/05/22 Range/Units 20:32 06:25 09:31 RBC 2.68 L (4.30-5.90) m/uL Hgb 8.4 L (13.0-17.5) gm/dL Hct 26.2 L (39.0-53.0) % RDW 16.2 H (11.5-15.5) % BUN (9-20) mg/dL Creatinine (0.66-1.25) mg/dL Glucose (74-99) mg/dL POC Glucose (mg/dL) 171 H 122 H (70-110) mg/dL 12/05/22 Range/Units 09:31 RBC (4.30-5.90) m/uL Hgb (13.0-17.5) gm/dL Hct (39.0-53.0) % RDW (11.5-15.5) % BUN 44 H (9-20) mg/dL Creatinine 2.57 H (0.66-1.25) mg/dL Glucose 163 H (74-99) mg/dL POC Glucose (mg/dL) (70-110) mg/dL
--- NOTE | 2022-12-05 11:27 | P.DS ---
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 Coronary artery disease 2. Mildly reduced LV function, EF 45-50% 3. Hypertension 4. Hyperlipidemia, treated, cholesterol 177, LDL 91, triglycerides 257 5. Kjy-cibdanz-igqwojfva diabetes, hemoglobin A1c 7.8% 6. Previous tobacco dependence, preoperative FEV1 83% of predicted 7. Remote history of pneumonia 8. Hypothyroid 9. Chronic kidney disease stage III 10. History of covid-19, vaccinated and boosted 11. Preoperative urinary tract infection with Citrobacter koseri, treated outpatient 12. Family history of CAD PRINCIPAL PROCEDURE: 1. Off-pump coronary artery bypass graft 3 with left internal mammary artery to the left anterior descending coronary artery, left radial artery graft to the obtuse marginal coronary artery, reverse saphenous vein graft to the posterior descending coronary artery 2. Endovascular vein harvest from the left thigh 3. Left endovascular radial artery harvest 4. Ligation of the left atrial appendage with a 35 mm AtriCure clip HISTORY OF PRESENT ILLNESS: This is a 77-year-old gentleman who follows outpatient with Dr Michel for primary care and Dr. Bower for his cardiology care. He reported intermittent episodes of chest discomfort along with increased dyspnea on exertion and palpitations for approximately 2-3 months. He had an echocardiogram per his primary care physician demonstrating reduced left ventricular systolic function with EF 40-45%, hypokinesis of the inferior and inferolateral wall, and mild mitral valve regurgitation. He followed up in the office with Dr. Bower who recommended an elective heart catheterization which demonstrated proximal LAD stenosis 90%, obtuse marginal branch of the circumflex coronary artery 99% and a mid RCA stenosis 99%. The patient was referred to Dr. Gomez from cardiothoracic surgery. He was recommended to undergo elective myocardial revascularization surgery. The usual perioperative course was discussed in detail with the patient and his family, all risks and benefits including the STS risk score were explained, all questions were answered and consent was obtained to proceed with surgery. The patient was scheduled for surgery at the earliest possible date. HOSPITAL COURSE: The patient was brought to the hospital on 11/29/22, taken to the preoperative area, prepared in the usual fashion and subsequently taken to the operating room where Dr. Gomez performed three-vessel off-pump CABG. Upon com pletion of surgery the patient was transferred to the cardiovascular intensive care unit where he was recovered and monitored hemodynamically. He was extubated, all lines, tubes, and supportive drips were discontinued when appropriate and he was transferred to 3 S. cardiac stepdown unit for further monitoring and rehabilitation. His oxygen was titrated down, he continued to work with physical and occupational therapy, inpatient cardiac rehab, he was tolerating an oral diet, his pain was controlled and he was ready to be discharged to home with [facility] care on postoperative day #6. He has received written and verbal instruction regarding his medications, activity restrictions, signs and symptoms requiring physician notification, and his follow-up appointments. Patient Condition at Discharge: Stable Plan - Discharge Summary Discharge Rx Participant: Yes New Discharge Prescriptions: New Empagliflozin [Jardiance] 10 mg PO DAILY #30 tablet hydrALAZINE HCL [Apresoline] 25 mg PO BID #60 tab Amiodarone [Cordarone] 400 mg PO BID #38 tab Sennosides-Docusate Sodium [Senokot-S] 2 each PO HS #14 tab Acetaminophen Tab [Tylenol] 1,000 mg PO Q6HR PRN tab PRN Reason: Fever And/ Or Pain Aspirin 325 mg PO DAILY #30 tab Diltiazem Cd [Cardizem CD] 120 mg PO DAILY #30 cap Clopidogrel [Plavix] 75 mg PO DAILY #30 tab Continue Levothyroxine Sodium 50 mcg PO QAM Zinc Gluconate [Zinc] 50 mg PO DAILY Cholecalciferol [Vitamin D3 (25 Mcg = 1000 Iu)] 25 mcg PO DAILY Ascorbic Acid [Vitamin C] 500 mg PO DAILY Metoprolol Tartrate [Lopressor] 25 mg PO BID #60 tab Omeprazole 20 mg PO BID Vitamin B Complex 1 each PO DAILY Atorvastatin [Lipitor] 40 mg PO DAILY #30 tab Discontinued metFORMIN HCL [Glucophage] 1,000 mg PO BID Losartan Potassium [Cozaar] 100 mg PO QAM Aspirin/Acetaminophen/Caffeine [Excedrin Migraine Caplet] 1 each PO DIRECTED PRN PRN Reason: Pain Isosorbide Mononitrate ER [Imdur] 30 mg PO DAILY #30 tab Nitroglycerin Sl Tabs [Nitrostat] 0.4 mg SUBLINGUAL Q5M PRN #25 tab PRN Reason: Chest Pain Aspirin 81 mg PO DAILY Discharge Medication List Levothyroxine Sodium 50 mcg PO QAM 03/07/22 [History] Omeprazole 20 mg PO BID 03/07/22 [History] Ascorbic Acid [Vitamin C] 500 mg PO DAILY 11/28/22 [History] Cholecalciferol [Vitamin D3 (25 Mcg = 1000 Iu)] 25 mcg PO DAILY 11/28/22 [History] Vitamin B Complex 1 each PO DAILY 11/28/22 [History] Zinc Gluconate [Zinc] 50 mg PO DAILY 11/28/22 [History] Empagliflozin [Jardiance] 10 mg PO DAILY #30 tablet 12/01/22 [Rx] Acetaminophen Tab [Tylenol] 1,000 mg PO Q6HR PRN tab 12/05/22 [Rx] Amiodarone [Cordarone] 400 mg PO BID #38 tab 12/05/22 [Rx] Aspirin 325 mg PO DAILY #30 tab 12/05/22 [Rx] Atorvastatin [Lipitor] 40 mg PO DAILY #30 tab 12/05/22 [Rx] Clopidogrel [Plavix] 75 mg PO DAILY #30 tab 12/05/22 [Rx] Diltiazem Cd [Cardizem CD] 120 mg PO DAILY #30 cap 12/05/22 [Rx] Metoprolol Tartrate [Lopressor] 25 mg PO BID #60 tab 12/05/22 [Rx] Sennosides-Docusate Sodium [Senokot-S] 2 each PO HS #14 tab 12/05/22 [Rx] hydrALAZINE HCL [Apresoline] 25 mg PO BID #60 tab 12/05/22 [Rx] Follow up Appointment(s)/Referral(s): Carmen Caro, DOUGLAS [Nurse Practitioner] - 12/12/22 11:00 am (You will be seen in the surgeon's office behind the hospital in [facility], [address]. Office phone number is ) Neeru Bower MD [STAFF PHYSICIAN] - 12/29/22 2:00 pm (At the [place] office) Rehab Zaheer BRAULIO,Cardiac [NON-STAFF] - 4 Weeks (You will receive a phone call in approximately 4-6 weeks for evaluation for cardiac rehab) [facility] [[facility] - ([facility] will call you to arrange avisit. ) Frantz Gomez MD [STAFF PHYSICIAN] - 12/28/22 1:30 pm Yovani Macias DO [Doctor of Osteopathic Medicine] - 12/26/22 8:30 am Damion Michel DO [Primary Care Provider] - 12/18/22 9:30 am Ambulatory/Diagnostic Orders: Complete Blood Count w/diff [LAB.AMB] Time Frame: 3 Days, Location: None Selected Comprehensive Metabolic Panel [LAB.AMB] Time Frame: 3 Days, Location: None Selected Activity/Diet/Wound Care/Special Instructions: DISCHARGE INSTRUCTIONS: 1. No driving for 4 weeks, or until physician gives their ok. 2. The patient should sleep in their own bed, no medical bed needed. 3. Stairs are not an issue. If the bedroom is upstairs, it is advised that the patient go up at night and down in the morning for the first week. Go slowly, using handrail and take 1 step at a time. 4. DELMIS hose are to be worn for 30 days post surgery or until physician discontinues. 5. Heart hugger is to be worn 100% of the time until physician discontinues.(except when showering) 6. No lifting, pushing, or pulling more than 10 pounds for 12 weeks. The physician will advise of any restriction changes. 7. The patient is expected to continue the prescribed walking program. 8. Continue pain control per as needed orders. 9. Continue with incentive spirometry and splinting/heart hugger until otherwise directed by the physician. 10. Must shower daily using liquid antibacterial soap 11. Routine sternal incision care. No powders, lotions, ointments on incisions. No dressings are necessary on incisions unless they are draining. Dermabond tape is to remain on sternal incision until surgeon follow-up. 12. Please call surgeon/METAL POURER for temp greater than 101 F or purulent drainage from incisions. 13. You should weigh yourself daily, record and bring log with you to follow up appointments. 14. All prescriptions given by surgeon for 30 days. Refills need to be filled through fig washer/primary care physician. 15. A Red armband has been placed on the patient. It should be worn for 30 days post discharge from surgery and will be removed by the cardiac surgeons. If an ER visit is necessary, please make sure the number on the Red armband is called before going to ER. 16. You have been referred to and are expected to begin Cardiac Rehab in approximately 4-6 weeks. HOME HEALTH SERVICES TO PROVIDE: RN SKILLED HOME CARE SERVICES FOR POST-OP SURGICAL PATIENTS WITH THE FOLLOWING: Coronary Artery Bypass Surgery (CABG), Mitral Valve Replacement/Repair ( MVR), Aortic Valve Replacement/Repair (AVR) RN TO CONTINUE EDUCATION FROM ``ROAD TO A HEALTH HEART PATIENT EDUCATION MANUAL (GIVEN TO PATIENT IN THE HOSPITAL) MEDICATION RECONCILIATION WITH EDUCATION NEEDED ON FIRST HOME VISIT EMPHASIZE IMPORTANCE OF WEARING BREAST SUPPORT/HEART HUGGER ENCOURAGE USE OF INCENTIVE SPIROMETER 10 X EVERY HOUR WHILE AWAKE ENCOURAGE UTILIZATION OF LOWER EXTREMITY COMPRESSION STOCKINGS/DELMIS HOSE and ELEVATE LEGS ABOVE LEVEL OF HEART WHILE AT REST. ENCOURAGE AMBULATION 3-5x/day INCREASING TOLERATES, WHILE AVOIDING EXTREMES IN TEMPERATURE FREQUENCY: RN TO OPEN THE PATIENT WITHIN 24 HOURS OF DISCHARGE FROM THE HOSPITAL WITH TELEHEALTH INSTALLED AT [facility] [place], RN TO VISIT 2-3 X A WEEK FOR 4 WEEKS ESTABLISHED BY PATIENT NEEDS. LABORATORY: CBC, CMP TO BE DRAWN ON THE THIRD DAY HOME, (RAN STAT) FAX RESULTS TO [phone]. TELEHEALTH PARAMETERS: WEIGHT: NOTIFY MD OF WEIGHT GAIN OF 2 LBS IN 24 HOURS OR 5 LBS IN ONE WEEK HR: NOTIFY MD OF HR <55 BPM OR HR>100 BPM BP: NOTIFY MD IF BP <90/55 OR BP>140/100 O2 SAT: NOTIFY MD IF PO2<93% ON ROOM AIR SEND TELEHEALTH REPORT TO SCOUT SNIPER AND CARDIOVASCULAR SURGEON THE FIRST WEEK OF CARE AND THEN BI-WEEKLY. PLEASE ADDITIONALLY COMMUNICATE ANY ABNORMALS AND NEW FINDINGS TO THE SURGEONS OFFICE. Discharge Disposition: HOME WITH HOME HEALTH SERVICES
[2022-12-05 11:40] LABS: Glucose,Whole Blood 142 mg/dL (70-110)
--- NOTE | 2022-12-05 11:40 | P.PN ---
Subjective Progress Note Date: 12/05/22 On today's evaluation 12/04/2022, the patient is doing well. The patient is currently on room air oxygen. The patient's postop day #5 following bypass surgery. The patient has a stable sternum which is dry clean and intact. All of the chest was removed. The patient currently doing well using incentive spirometer. On today's evaluation, the blood work is showing a WBC count of 8.3 with a hemoglobin of 7.7 and a platelet count of 242. Creatinine stable at 2.4 as the patient developed an acute kidney injury yet stable since yesterday with a BUN of 47 and a creatinine of 2.4. The patient also has also a sodium level of 137 with a potassium level of 4.6. Patient is on Levemir insulin 15 units and sliding scale coverage. The patient's on accommodation of aspirin and Plavix. The patient is also on metoprolol 25 mg by mouth twice a day. Patient is on Lipitor 40 mg on a daily basis. The chest x-ray from today showing some cardiomegaly and small effusion. The findings of essentially stable. On 12/05/2022, the patient is postop day #6. The patient underwent coronary artery bypass surgery. The patient is no specific complaints. He is resting comfortably in bed. Using the incentive spirometer. Pulling more than 2500 on his incentive spirometer. Sternum stable condition and intact and the patient has no chest pain. The patient is ambulating. The patient remains on accommodation of aspirin and Plavix. The patient is also metoprolol 25 mg by mouth twice a day. The patient is currently on Cardizem 120 mg by mouth daily. The patient is on Levemir insulin 15 units at bedtime in addition to NovoLog size scattered coverage. The patient is also on Lipitor 40 mg by mouth daily. Chest x-ray shows small bilateral pleural effusions. He is a 42 with a creatinine of 2.57 which is essentially stable compared to yesterday with a sodium level of 140 and a potassium level of 4.3. Bili was found at 9.4 with a hemoglobin of 8.4 and a platelet count of 298. The plan is to consider discharge patient home today. He is currently on room air oxygen. Objective - Vital Signs Vital signs: Vital Signs Temp 96.0 F L 12/05/22 09:19 Pulse 75 12/05/22 09:19 Resp 18 12/05/22 09:19 BP 142/67 12/05/22 09:19 Pulse Ox 94 L 12/05/22 09:19 FiO2 21 12/05/22 08:06 Intake & Output 12/04/22 12/05/22 12/05/22 18:59 06:59 18:59 Intake Total 1356 118 Output Total 800 Balance 556 118 Weight 80.5 kg Intake: Oral 1356 118 Output: Urine 800 Other: Voiding Method Toilet Toilet # Voids 4 # Bowel Movements 1 ABP, PAP, CO, CI - Last Documented Arterial Blood Pressure 159/56 Pulmonary Artery Pressure 34/6 Cardiac Output 5 Cardiac Index 2.4 - Exam GENERAL EXAM: Alert, pleasant 77-year-old male patient, on room air, comfortable in no apparent distress. HEAD: Normocephalic. EYES: Brisk reaction of pupils, equal size. NOSE: Clear with pink turbinates. THROAT: No erythema or exudates. NECK: No masses, no JVD. CHEST: Sternal dressing dry and intact. Heart Hugger in place LUNGS: Equal air entry with crackles in the left base. CVS: S1 and S2 normal with no audible murmur, regular rhythm. ABDOMEN: No hepatosplenomegaly, hypoactive bowel sounds, no guarding or rigidity. SPINE: No scoliosis or deformity SKIN: No rashes CENTRAL NERVOUS SYSTEM: Sedated, tone is normal in all 4 extremities. EXTREMITIES: Rayray wrap to bilateral lower extremities. There is trace peripheral edema. Peripheral pulses are intact. - Labs CBC & Chem 7: 12/05/22 09:31 12/05/22 09:31 Labs: Abnormal Lab Results - Last 24 Hours (Table) 12/04/22 12/04/22 12/04/22 Range/Units 11:33 16:14 16:16 BUN (9-20) mg/dL Creatinine (0.66-1.25) mg/dL Glucose (74-99) mg/dL POC Glucose (mg/dL) 134 H 530 H 245 H (70-110) mg/dL 12/04/22 12/05/22 12/05/22 Range/Units 20:32 06:25 09:31 BUN 44 H (9-20) mg/dL Creatinine 2.57 H (0.66-1.25) mg/dL Glucose 163 H (74-99) mg/dL POC Glucose (mg/dL) 171 H 122 H (70-110) mg/dL Assessment and Plan Plan: Significant triple-vessel coronary artery disease. Status post coronary artery bypass grafting utilizing a ALMEIDA to the LAD, saphenous vein graft to the PDA, left radial artery as to the OM and ligation of left atrial appendage with AtriCure clip. Postoperative day # 6 Small bilateral pleural effusion, post thoracotomy Anemia of chronic disease, hemoglobin stable at 8.4 Former smoker Diabetes mellitus CKD stage 3, creatinine is stable at 2.57, GFR is at 23 Hypertension Hypothyroidism History of seizures History of COVID-19 infection 3 Plan: Pleural effusions are small and stable Continue aspirin and Plavix Continue metoprolol twice a day 25 mg Continue Cardizem 120 mg by mouth daily Continue Lipitor Monitor Cr Levemir insulin Increase his activity as tolerated Continue the incentive spirometer Heparin for DVT prophylaxis Home once cleared by CT services
[2022-12-05 12:45] VITALS: BP 151/67; PULSE 68; RESP 16
--- NOTE | 2022-12-05 13:14 | P.PN ---
Subjective Progress Note Date: 12/05/22 HISTORY OF PRESENT ILLNESS: This is a 77-year-old gentleman with a past medical history significant for coronary artery disease documented on recent heart catheterization which he was diagnosed with severe triple-vessel CAD after an echocardiogram came in to be abnormal showing mild cardiomyopathy was evidence of foreign motion abnormalities concerning for severe CAD as well as history of diabetes and hypertension and dyslipidemia and chronic kidney disease. We consulted to see the patient for cardiac evaluation after her open-heart surgery. Apparently he was admitted to the hospital yesterday and underwent CABG 3 with ALMEIDA to LAD and left radial to obtuse marginal branch and SVG to RCA. He was extubated yesterday. This is postoperative patient day #2. The patient overall seems to be stable from a cardiac vascular standpoint of view. He has been maintaining normal sinus mechanism. Currently he is on Cardizem IV for the radial graft and he is in process to be switched into Cardizem by mouth. Beside that he is on dual antiplatelet therapy and he is on intermediate intensity statin. Urine output has been within normal limits. The blood pressure has been normal and somewhat on the soft side. I did review his a blood work from the morning and that revealed stable hemoglobin with a creatinine of 1.68 and he is known to have stage III chronic kidney disease. The chest x-ray also was reviewed mild pulmonary vascular congestion December [id number] The patient was seen and evaluated this morning. Overall he is stable and has been maintaining normal sinus mechanism. Urine output is stable. Hemoglobin is stable. The chest x-ray showed small pleural effusion and he is in process of getting a dose of Lasix. His kidney function is a slightly worse but he does have chronic kidney disease. December 022022 The patient was seen this morning. He remains stable from a cardiovascular standpoint of view. He remains in sinus mechanism. We don't have a blood work as of this morning. Hemodynamically he is stable. He is on maximize medical treatment. December [id number] The patient was seen this morning. He remains stable from a cardiovascular standpoint of view. The pressure and heart rate have been within normal limits. His potassium was slightly elevated today but no with potassium as of yet. His kidney function also was slightly worse yesterday still waiting for the blood work. He states "I feel fine". Examination he is euvolemic with clear breathing sounds bilaterally and no lower extremities 12/04/2022 Patient examined this morning. He is sitting up in the chair. Patient denies chest pain or pressure. He denies shortness of breath. Patient states he has been up ambulating to the bathroom without difficulty. Vital signs are stable. 12/05/2022 Patient examined this morning at the bedside. Patient denies chest pain or pressure. Denies shortness of breath. He has been ambulating without difficulty. Telemetry reveals sinus mechanism. Vital signs are stable. PHYSICAL EXAM: VITAL SIGNS: Reviewed. GENERAL: Well-developed in no acute distress. NECK: Supple. No JVD or thyromegaly LUNGS: Respirations even and unlabored. Lungs essentially clear to auscultation bilaterally. HEART: Regular rate and rhythm. S1 and S2 heard. EXTREMITIES: Normal range of motion. No clubbing or cyanosis. Peripheral pulses intact. 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 Bower Further recommendations pending patient course Nurse practitioner note has been reviewed by physician. Signing provider agrees with the documented findings, assessment, and plan of care. Objective - Vital Signs Vital signs: Vital Signs Temp 96.0 F L 12/05/22 09:19 Pulse 68 12/05/22 12:39 Resp 16 12/05/22 12:39 BP 151/67 12/05/22 12:39 Pulse Ox 95 12/05/22 12:39 FiO2 21 12/05/22 08:06 Intake & Output 12/04/22 12/05/22 12/05/22 18:59 06:59 18:59 Intake Total 1356 118 Output Total 800 Balance 556 118 Weight 80.5 kg Intake: Oral 1356 118 Output: Urine 800 Other: Voiding Method Toilet Toilet # Voids 4 # Bowel Movements 1 ABP, PAP, CO, CI - Last Documented Arterial Blood Pressure 159/56 Pulmonary Artery Pressure 34/6 Cardiac Output 5 Cardiac Index 2.4 - Labs CBC & Chem 7: 12/05/22 09:31 12/05/22 09:31 Labs: Abnormal Lab Results - Last 24 Hours (Table) 12/04/22 12/04/22 12/04/22 Range/Units 16:14 16:16 20:32 RBC (4.30-5.90) m/uL Hgb (13.0-17.5) gm/dL Hct (39.0-53.0) % RDW (11.5-15.5) % BUN (9-20) mg/dL Creatinine (0.66-1.25) mg/dL Glucose (74-99) mg/dL POC Glucose (mg/dL) 530 H 245 H 171 H (70-110) mg/dL 12/05/22 12/05/22 12/05/22 Range/Units 06:25 09:31 09:31 RBC 2.68 L (4.30-5.90) m/uL Hgb 8.4 L (13.0-17.5) gm/dL Hct 26.2 L (39.0-53.0) % RDW 16.2 H (11.5-15.5) % BUN 44 H (9-20) mg/dL Creatinine 2.57 H (0.66-1.25) mg/dL Glucose 163 H (74-99) mg/dL POC Glucose (mg/dL) 122 H (70-110) mg/dL 12/05/22 Range/Units 11:39 RBC (4.30-5.90) m/uL Hgb (13.0-17.5) gm/dL Hct (39.0-53.0) % RDW (11.5-15.5) % BUN (9-20) mg/dL Creatinine (0.66-1.25) mg/dL Glucose (74-99) mg/dL POC Glucose (mg/dL) 142 H (70-110) mg/dL
== END 2022-12-05 16:36 | disposition home health service (06) | DRG 236 ==
LOC: 2ORMAIN 06:11 → 2SICU 12:53 → 3SCARD 12-01 18:14
PROVIDERS: ADMIT Thoracic Surgery (Cardiothoracic Vascular Surgery); ATTEND Thoracic Surgery (Cardiothoracic Vascular Surgery)
PROC: 0210093 Bypass Coronary Artery, One Artery from Coronary Artery with Autologous Venous Tissue, Open Approach (ICD-10-PCS; 2022-11-29)
PROC: 02L70CK Occlusion of Left Atrial Appendage with Extraluminal Device, Open Approach (ICD-10-PCS; 2022-11-29)
PROC: 02100Z9 Bypass Coronary Artery, One Artery from Left Internal Mammary, Open Approach (ICD-10-PCS; principal; 2022-11-29 08:30)
PROC: 02100A3 Bypass Coronary Artery, One Artery from Coronary Artery with Autologous Arterial Tissue, Open Approach (ICD-10-PCS; 2022-11-29 08:30)
PROC: 03BC4ZZ Excision of Left Radial Artery, Percutaneous Endoscopic Approach (ICD-10-PCS; 2022-11-29 08:30)
PROC: 06BQ4ZZ Excision of Left Saphenous Vein, Percutaneous Endoscopic Approach (ICD-10-PCS; 2022-11-29 08:30)
DX: I25.119 Atherosclerotic heart disease of native coronary artery with unspecified angina pectoris (principal); N17.9 Acute kidney failure, unspecified; J93.83 Other pneumothorax; D62 Acute posthemorrhagic anemia; I42.9 Cardiomyopathy, unspecified; E11.649 Type 2 diabetes mellitus with hypoglycemia without coma; D63.1 Anemia in chronic kidney disease; E11.22 Type 2 diabetes mellitus with diabetic chronic kidney disease; D50.9 Iron deficiency anemia, unspecified; E11.65 Type 2 diabetes mellitus with hyperglycemia; I12.9 Hypertensive chronic kidney disease with stage 1 through stage 4 chronic kidney disease, or unspecified chronic kidney disease; E03.9 Hypothyroidism, unspecified; N18.30 Chronic kidney disease, stage 3 unspecified; E78.5 Hyperlipidemia, unspecified; K59.00 Constipation, unspecified; E87.5 Hyperkalemia; D72.828 Other elevated white blood cell count; F41.9 Anxiety disorder, unspecified; N28.1 Cyst of kidney, acquired; Z87.891 Personal history of nicotine dependence; Z86.16 Personal history of COVID-19; Z87.01 Personal history of pneumonia (recurrent); Z82.49 Family history of ischemic heart disease and other diseases of the circulatory system; Z79.84 Long term (current) use of oral hypoglycemic drugs; Z79.82 Long term (current) use of aspirin; Z79.899 Other long term (current) drug therapy; Z79.890 Hormone replacement therapy; Z88.0 Allergy status to penicillin
CPT/HCPCS: 36415; 71045; 71046; 76770; 80048; 80053; 82330; 82728; 82805; 83540; 83550; 83735; 85025; 85027; 85610; 85730; 86850; 86891; 86900; 86901; 86920; 94002; 94640; 94760

== ENCOUNTER → 2022-12-26 | Outpatient (CLI) | payer MEDICARE ==
--- NOTE | 2022-12-26 15:21 | CT ---
EXAMINATION TYPE: CT chest wo con DATE OF EXAM: 12/26/2022 COMPARISON: Chest x-ray 3 weeks ago. HISTORY: SOB. History of recent open cardiac surgery. CT DLP: 434 mGycm. Automated Exposure Control for Dose Reduction was Utilized. TECHNIQUE: CT scan of the thorax is performed without IV contrast. FINDINGS: LUNGS: Mild to borderline moderate underlying emphysematous change is identified. Some focal groundgl ass opacity in the central left lower lobe axial image 42 for reference. No pleural effusion or pneum othorax is seen bilaterally. Occasional scattered micronodule and tiny calcified nodule bilaterally. No significant greater than 5 mm pulmonary nodules. No pneumothorax seen bilaterally. Additional smal ler patchy groundglass opacity in the right lower lobe axial image 40 is seen. MEDIASTINUM: Lack of IV contrast is noted to limit evaluation for mediastinal and especially hilar ad enopathy. There are no definitive greater than 1 cm mediastinal lymph nodes. No cardiomegaly or per icardial effusion is seen. Overlying sternal wires and mediastinal clips are redemonstrated along with ALMEIDA harvesting from CABG procedure are identified. There is left atrial appendage clip redemonstrated. There is some free flu id in the anterior mediastinum just below the sternotomy at level of the main pulmonary artery. There is nonspecific. There is additional mild fluid and/or fat stranding in the more anterior superior me diastinum. No suspicious sternal widening. OTHER: Intraluminal small gallstones are seen. There are 2 simple appearing thin-walled cyst in the r ight kidney measuring between 4 to 5 cm in size partially imaged. There is 3 mm upper to mid pole rig ht renal calculus on axial image 66. IMPRESSION: Mild to borderline moderate underlying emphysematous change. Areas of mild acute infiltra te and/or edema in the bilateral lower lobes is present. Correlate clinically. Postsurgical changes r edemonstrated. Nonspecific mediastinal fluid favors resolving postsurgical seroma.
== END | disposition home or self-care (01) ==
LOC: RADCTMAIN 13:02
PROVIDERS: ATTEND Internal Medicine Critical Care Medicine
DX: J43.9 Emphysema, unspecified (principal); R06.02 Shortness of breath
CPT/HCPCS: 36415; 71250; 82565; 84520

== ENCOUNTER 2022-12-27 10:45 | Emergency (ER) | payer MEDICARE ==
--- NOTE | 2022-12-27 11:20 | ED ---
General Adult HPI - General Chief complaint: Shortness of Breath Stated complaint: Possible blood clot Time Seen by Provider: 12/27/22 10:56 Source: patient Mode of arrival: ambulatory Limitations: no limitations - History of Present Illness Initial comments: Dictation was produced using [employer] dictation software. please excuse any grammatical, word or spelling errors. Chief Complaint: 77-year-old male presents emergency department for abnormal pulmonary perfusion imaging scan History of Present Illness: Patient 77-year-old male he was instructed to come to the emergency department by radiology department. Patient is one month status post coronary artery bypass grafting performed by cardiothoracic surgery. The procedure was on November 29. Patient has been recovering well however he has been complaining of shortness of breath daily since the procedure. He states that his shortness of breath has been noticeable in the morning. He states he would wake up feeling fine however when he tries to walk to the bathroom he would become winded. 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 He saw the ink technician yesterday who ordered a nuclear medicine scan to evaluate for pulmonary embolism. Pulmonary perfusion imaging scan said moderate probability for PE. Patient denies any chest pain. Denies any shortness of breath at the bedside. Denies any lower extremity pain or swelling. Denies any cough. No fevers or runny nose. The ROS documented in this emergency department record has been reviewed and confirmed by me. Those systems with pertinent positive or negative responses have been documented in the HPI. All other systems are other negative and/or noncontributory. PHYSICAL EXAM: General Impression: Alert and oriented x3, not in acute distress HEENT: Normocephalic atraumatic, extra-ocular movements intact, pupils equal and reactive to light bilaterally, mucous membranes moist. Cardiovascular: Heart regular rate and rhythm Chest: Able to complete full sentences, no retractions, no tachypnea Abdomen: abdomen soft, non-tender, non-distended, no organomegaly Musculoskeletal: Pulses present and equal in all extremities, no peripheral edema Motor: no focal deficits noted Neurological: CN II-XII grossly intact, no focal motor or sensory deficits noted Skin: Intact with no visualized rashes Psych: Normal affect and mood ED course: 77-year-old well-appearing male presents emergency department for abnormal pulmonary perfusion imaging. Vital signs upon arrival shows blood pressure 98/62, rest of vital signs within acceptable limits. Nursing notes and chart review was performed EKG interpreted by me: Ventricular rate 69, sinus rhythm,. 160, QRS 114, QTc 262. No [place] prolongation, no QTC prolongation, no ST or T-wave changes noted. EKG compared to 11/29/2022 showing no changes. Overall, this EKG is unremarkable Was pt. sent in by a medical professional or institution (, DANIEL, OUTDOOR ADVERTISING LEASING AGENT, urgent care, hospital, or care home...) When possible be specific @ -Sent in from radiology department Did you speak to anyone other than the patient for history (EMS, parent, family, police, friend...)? What history was obtained from this source @ -No Did you review nursing and triage notes (agree or disagree)? Why? @ -I reviewed and agree with nursing and triage notes Were old charts reviewed (outside hosp., previous admission, EMS record, old EKG, old radiological studies, urgent care reports/EKG's, care home records)? Report findings @ -Prior pulmonology and parathoracic notes were reviewed Differential Diagnosis (chest pain, altered mental status, abdominal pain women, abdominal pain men, vaginal bleeding, musculoskeletal, weakness, fever, dyspnea, syncope, headache, dizziness, GI bleed, back pain, seizure, CVA, palpatations, mental health)? @ -Differential Dyspnea: Coronary syndrome, arrhythmia, tamponade, asthma, COPD, pulmonary embolism, pneumonia, pneumothorax, pulmonary effusion, anaphylaxis, diabetic ketoacidosis, flailed chest, pulmonary contusion, diaphragmatic rupture, anemia, neuromuscular, this is not meant to be an all-inclusive list. EKG interpreted by me (3pts min.). @ -None done X-rays interpreted by me (1pt min.). @ -Nonacute, COPD changes CT interpreted by me (1pt min.). @ -None done U/S interpreted by me (1pt. min.). @ -No DVTs in either extremity What testing was considered but not performed or refused? (CT, X-rays, U/S, labs)? Why? @ -CT was considered however patient has poor renal function would not tolerate contrast What meds were considered but not given or refused? Why? @ -None Did you discuss the management of the patient with other professionals (professionals i.e. , PA, OUTDOOR ADVERTISING LEASING AGENT, lab, RT, psych nurse, aids social worker, diamond driller helper, teacher, flight deck officer, pillowcase turner)? Give summary @ -Case discussed with ink technician, Dr. Joe who evaluated the patient bedside along with cardiothoracic physician assistant sales center manager Was smoking cessation discussed for >3mins.? @ -No Was critical care preformed (if so, how long)? @ -No Were there social determinants of health that impacted care today? How? (Homelessness, low income, unemployed, alcoholism, drug addiction, transportation, low edu. Level, literacy, decrease access to med. care, long-term, rehab)? @ -No Was there de-escalation of care discussed even if they declined (Discuss DNR or withdrawal of care, Hospice)? DNR status @ -No What co-morbidities impacted this encounter? (DM, HTN, Smoking, COPD, CAD, Cancer, CVA, ARF, Chemo, Hep., AIDS, mental health diagnosis, sleep apnea, morbid obesity)? @ -None Was patient admitted / discharged? Hospital course, mention meds given and route, prescriptions, significant lab abnormalities, going to OR and other pertinent info. @ -77-year-old male presents to emergency department after having had abnormal VQ scan. He is approximately one month postop from coronary artery bypass grafting. Laboratory evaluation obtained. CBC, metabolic panel, coag panel is unremarkable. He does have a d-dimer 1.66 preformed is 0.038. Patient having active symptoms at the bedside. Renal function appears to be at baseline. BNP is reassuring. Patient was seen and evaluated at the bedside by Dr. Joe and mid-level provider working with cardiothoracic surgery. There is chart and felt that his troponin levels were elevated due to troponin leak. Patient is ambulated had some bouts of hypoxia. Per ink technician patient is unlikely to have pulmonary embolism. He appears to be well. He is not dyspneic with a mbulation. Prior pulmonology recommendations is to discharge him home. They will arrange home oxygen from pulmonology office. Patient provided a prescription for eliquis. He does have follow-up appointments with pulmonology cardiothoracic surgery this week. Patient is agreeable to plan. Undiagnosed new problem with uncertain prognosis? @ -No Drug Therapy requiring intensive monitoring for toxicity (Heparin, Nitro, Insulin, Cardizem)? @ -No Were any procedures done? @ -No Diagnosis/symptom? Acute, or Chronic, or Acute on Chronic? Uncomplicated (without systemic symptoms) or Complicated (systemic symptoms)? @ -1. Acute dyspnea, no obvious source Side effects of treatment? @ -No Exacerbation, Progression, or Severe Exacerbation? @ -No Poses a threat to life or bodily function? How? (Chest pain, [place], NH, pneumonia, PE, COPD, DKA, ARF, appy, cholecystitis, CVA, Diverticulitis, Homicidal, Suicidal, threat to staff... and all critical care pts) @ -yes - Related Data Home Medications Medication Instructions Recorded Confirmed Levothyroxine Sodium 112 mcg PO QAM 03/07/22 12/27/22 Omeprazole 20 mg PO BID 03/07/22 12/27/22 Ascorbic Acid [Vitamin C] 500 mg PO DAILY 11/28/22 12/27/22 Cholecalciferol [Vitamin D3 (25 25 mcg PO DAILY 11/28/22 12/27/22 Mcg = 1000 Iu)] Vitamin B Complex 1 cap PO DAILY 11/28/22 12/27/22 Zinc Gluconate [Zinc] 50 mg PO DAILY 11/28/22 12/27/22 Sennosides-Docusate Sodium 2 tab PO HS 12/27/22 12/27/22 [Senokot-S] Previous Rx's Medication Instructions Recorded Empagliflozin [Jardiance] 10 mg PO DAILY #30 tablet 12/01/22 Acetaminophen Tab [Tylenol] 1,000 mg PO Q6HR PRN tab 12/05/22 Atorvastatin [Lipitor] 40 mg PO DAILY #30 tab 12/05/22 Diltiazem Cd [Cardizem CD] 120 mg PO DAILY #30 cap 12/05/22 Metoprolol Tartrate [Lopressor] 25 mg PO BID #60 tab 12/05/22 hydrALAZINE HCL [Apresoline] 25 mg PO BID #60 tab 12/05/22 hydrOXYzine HCL 10 mg PO HS #7 tab 12/09/22 Apixaban [Eliquis] 2.5 mg PO BID 14 Days #28 tab 12/27/22 Aspirin 81 mg PO DAILY #30 tab 12/27/22 Allergies Allergy/AdvReac Type Severity Reaction Status Date / Time Penicillins Allergy Rash/Hives Verified 12/27/22 12:34 Review of Systems ROS Statement: Those systems with pertinent positive or pertinent negative responses have been documented in the HPI. ROS Other: All systems not noted in ROS Statement are negative. Past Medical History Past Medical History: Coronary Artery Disease (CAD), Chest Pain / Angina, Diabetes Mellitus, GERD/Reflux, Hypertension, Osteoarthritis (OA), Renal Disease, Seizure Disorder, Thyroid Disorder Additional Past Medical History / Comment(s): migraines, last seizure in 20's, had Covid x 3 in the past but not recent, chronic kidney disease History of Any Multi-Drug Resistant Organisms: None Reported Past Surgical History: Heart Catheterization Additional Past Surgical History / Comment(s): oral surgery, cataracts removed, EGD Past Anesthesia/Blood Transfusion Reactions: No Reported Reaction Past Psychological History: No Psychological Hx Reported Smoking Status: Former smoker Past Alcohol Use History: Rare Past Drug Use History: None Reported - Past Family History Father Family Medical History: Cancer Mother Additional Family Medical History / Comment(s): of old age at 99 years old, had angina in her 50s but did nothing about it General Exam Limitations: no limitations Course Vital Signs 12/27/22 12/27/22 12/27/22 10:47 15:52 16:00 Temperature 98 F 98.7 F 98.4 F Pulse Rate 62 78 65 Respiratory 18 16 16 Rate Blood Pressure 98/62 109/96 128/81 O2 Sat by Pulse 95 98 94 L Oximetry 12/27/22 12/27/22 16:30 17:00 Temperature 98.4 F Pulse Rate 67 69 Respiratory 16 16 Rate Blood Pressure 125/71 142/76 O2 Sat by Pulse 94 L 98 Oximetry Medical Decision Making - Lab Data Result diagrams: 12/27/22 11:16 12/27/22 11:16 Lab Results 12/27/22 12/27/22 12/27/22 Range/Units 11:16 11:16 11:16 WBC 7.3 (3.8-10.6) k/uL RBC 3.40 L (4.30-5.90) m/uL Hgb 11.0 L (13.0-17.5) gm/dL Hct 34.9 L (39.0-53.0) % MCV 102.5 H (80.0-100.0) fL MCH 32.4 (25.0-35.0) pg MCHC 31.6 (31.0-37.0) g/dL RDW 15.9 H (11.5-15.5) % Plt Count 318 (150-450) k/uL MPV 8.7 Neutrophils % 75 % Lymphocytes % 15 % Monocytes % 5 % Eosinophils % 3 % Basophils % 0 % Neutrophils # 5.5 (1.3-7.7) k/uL Lymphocytes # 1.1 (1.0-4.8) k/uL Monocytes # 0.4 (0-1.0) k/uL Eosinophils # 0.2 (0-0.7) k/uL Basophils # 0.0 (0-0.2) k/uL Macrocytosis Moderate PT 10.1 (9.0-12.0) sec INR 1.0 (<1.2) APTT 22.4 (22.0-30.0) sec D-Dimer 1.66 H (<0.60) mg/L FEU Sodium 139 (137-145) mmol/L Potassium 4.9 (3.5-5.1) mmol/L Chloride 106 (98-107) mmol/L Carbon Dioxide 22 (22-30) mmol/L Anion Gap 11 mmol/L BUN 43 H (9-20) mg/dL Creatinine 2.68 H (0.66-1.25) mg/dL Est GFR (CKD-EPI)AfAm 25 (>60 ml/min/1.73 sqM) Est GFR (CKD-EPI)NonAf 22 (>60 ml/min/1.73 sqM) Glucose 268 H (74-99) mg/dL Calcium 9.4 (8.4-10.2) mg/dL Total Bilirubin 0.5 (0.2-1.3) mg/dL AST 31 (17-59) U/L ALT 85 H (4-49) U/L Alkaline Phosphatase 185 H (38-126) U/L Troponin I (0.000-0.034) ng/mL NT-Pro-B Natriuret Pep pg/mL Total Protein 6.8 (6.3-8.2) g/dL Albumin 4.1 (3.5-5.0) g/dL 12/27/22 12/27/22 12/27/22 Range/Units 11:16 11:16 14:26 WBC (3.8-10.6) k/uL RBC (4.30-5.90) m/uL Hgb (13.0-17.5) gm/dL Hct (39.0-53.0) % MCV (80.0-100.0) fL MCH (25.0-35.0) pg MCHC (31.0-37.0) g/dL RDW (11.5-15.5) % Plt Count (150-450) k/uL MPV Neutrophils % % Lymphocytes % % Monocytes % % Eosinophils % % Basophils % % Neutrophils # (1.3-7.7) k/uL Lymphocytes # (1.0-4.8) k/uL Monocytes # (0-1.0) k/uL Eosinophils # (0-0.7) k/uL Basophils # (0-0.2) k/uL Macrocytosis PT (9.0-12.0) sec INR (<1.2) APTT (22.0-30.0) sec D-Dimer (<0.60) mg/L FEU Sodium (137-145) mmol/L Potassium (3.5-5.1) mmol/L Chloride (98-107) mmol/L Carbon Dioxide (22-30) mmol/L Anion Gap mmol/L BUN (9-20) mg/dL Creatinine (0.66-1.25) mg/dL Est GFR (CKD-EPI)AfAm (>60 ml/min/1.73 sqM) Est GFR (CKD-EPI)NonAf (>60 ml/min/1.73 sqM) Glucose (74-99) mg/dL Calcium (8.4-10.2) mg/dL Total Bilirubin (0.2-1.3) mg/dL AST (17-59) U/L ALT (4-49) U/L Alkaline Phosphatase (38-126) U/L Troponin I 0.038 H* 0.043 H* (0.000-0.034) ng/mL NT-Pro-B Natriuret Pep 656 pg/mL Total Protein (6.3-8.2) g/dL Albumin (3.5-5.0) g/dL Disposition Clinical Impression: Dyspnea Disposition: HOME SELF-CARE Condition: Fair Instructions (If sedation given, give patient instructions): Dyspnea (ED) Additional Instructions: Patient to go home with oxygen, 2 liters per minute with activity. Being arranged by Dr. Macais's office STOP plavix (clopidogrel) Decrease aspirin to 81 mg daily (baby aspirin) Take eliquis (apixaban) 2.5 mg twice daily (for possible PE in the absence of any other reason for intermittent hypoxia with activity in the office machine servicer) Follow up with Dr. Gomez and Dr. Bower as instructed Prescriptions: Apixaban [Eliquis] 2.5 mg PO BID 14 Days #28 tab Is patient prescribed a controlled substance at d/c from ED?: No Referrals: Neeru Bower MD [STAFF PHYSICIAN] - 12/29/22 2:00 pm Frantz Gomez MD [STAFF PHYSICIAN] - 12/28/22 12:30 pm Yovani Macias DO [Doctor of Osteopathic Medicine] - 1-2 days Time of Disposition: 14:38
[2022-12-27 11:29] LABS: Basophils % (A) 0 %; Eosinophils # (A) 0.2 k/uL (0-0.7); Eosinophils % (A) 3 %; HCT 34.9 % (39.0-53.0); Lymphocytes # (A) 1.1 k/uL (1.0-4.8); Lymphocytes % (A) 15 %; MCH 32.4 pg (25.0-35.0); MCHC 31.6 g/dL (31.0-37.0); MCV 102.5 fL (80.0-100.0); Macrocytosis Moderate; Mean Platelet Volume 8.7; Monocytes # (A) 0.4 k/uL (0-1.0); Monocytes % (A) 5 %; Neutrophils # (A) 5.5 k/uL (1.3-7.7); Neutrophils % (A) 75 %; Platelet Count 318 k/uL (150-450); RDW 15.9 % (11.5-15.5); WBC 7.3 k/uL (3.8-10.6)
[2022-12-27 11:44] LABS: Albumin 4.1 g/dL (3.5-5.0); Calcium 9.4 mg/dL (8.4-10.2); Potassium 4.9 mmol/L (3.5-5.1); Total Bilirubin 0.5 mg/dL (0.2-1.3); Total Protein 6.8 g/dL (6.3-8.2)
--- NOTE | 2022-12-27 11:49 | XR ---
EXAMINATION TYPE: XR chest 2V DATE OF EXAM: 12/27/2022 COMPARISON: 12/05/2022 TECHNIQUE: PA and lateral views submitted. HISTORY: Postcardiac surgery FINDINGS: The lungs are clear and there is no pneumothorax, pleural effusion, or focal pneumonia. Heart size normal and no overt failure. Osseous structures demonstrate hypertrophic and degenerative changes of the spine. Hyperexpansion suggests COPD. There is postsurgical changes. IMPRESSION: 1. No acute process. Correlate for COPD.
[2022-12-27 11:55] LABS: Partial Thromboplastin Time 22.4 sec (22.0-30.0); Prothrombin Time 10.1 sec (9.0-12.0)
--- NOTE | 2022-12-27 14:34 | US ---
EXAMINATION TYPE: US venous doppler duplex LE BI DATE OF EXAM: 12/27/2022 2:10 PM COMPARISON: NONE CLINICAL HISTORY: rule out dvt. SIDE PERFORMED: Bilateral TECHNIQUE: The lower extremity deep venous system is examined utilizing real time linear array sonog christine with graded compression, doppler sonography and color-flow sonography. VESSELS IMAGED: Common Femoral Vein Deep Femoral Vein Greater Saphenous Vein * Femoral Vein Popliteal Vein Small Saphenous Vein * Proximal Calf Veins (* superficial vessels) Right Leg: Appears negative for DVT Left Leg: Appears negative for DVT IMPRESSION: 1 bilateral lower extremity ultrasound negative for deep venous thrombosis.
[2022-12-28 02:03] VITALS: RESP 16
[2022-12-28 02:05] VITALS: BP 142/76; PULSE 69
[2022-12-28 02:07] VITALS: TEMP 98.4
== END 2022-12-27 17:08 | disposition home or self-care (01) ==
LOC: EC 10:45
DX: R06.00 Dyspnea, unspecified (principal); I25.10 Atherosclerotic heart disease of native coronary artery without angina pectoris; E11.9 Type 2 diabetes mellitus without complications; I10 Essential (primary) hypertension; E07.9 Disorder of thyroid, unspecified; K21.9 Gastro-esophageal reflux disease without esophagitis; M19.90 Unspecified osteoarthritis, unspecified site; Z87.891 Personal history of nicotine dependence; Z79.890 Hormone replacement therapy; Z79.1 Long term (current) use of non-steroidal anti-inflammatories (NSAID); Z79.899 Other long term (current) drug therapy; Z86.16 Personal history of COVID-19; Z88.0 Allergy status to penicillin
CPT/HCPCS: 36415; 71046; 80053; 83880; 84484; 85025; 85379; 85610; 85730; 93005; 93970; 99285

== ENCOUNTER → 2022-12-27 | Outpatient (CLI) | payer MEDICARE ==
--- NOTE | 2022-12-27 10:31 | NM ---
EXAMINATION TYPE: NM pul vent and perfuse DATE OF EXAM: 12/27/2022 COMPARISON: Chest x-ray on 12/26/2022 HISTORY: Post cardiac surgery TECHNIQUE: Utilizing inhalation of 67.1 mCi Tc 99m DTPA aerosol and intravenous injection of 5.3 mCi of Tc 99m MAA, ventilation and perfusion images are acquired post injection in multiple projections. FINDINGS: There is a moderate-sized matched defect involving the posterior margin of the right upper lobe seen on the BROOKE and lateral view of the right lung. IMPRESSION: Intermediate probability for pulmonary embolism
== END | disposition home or self-care (01) ==
LOC: RADNMMAIN 09:00
PROVIDERS: ATTEND Internal Medicine Critical Care Medicine
DX: R06.02 Shortness of breath (principal); Z98.890 Other specified postprocedural states
CPT/HCPCS: 78582; A9540; A9567